=== PATIENT | male | born 1960 | race Caucasian/White ===

== ENCOUNTER 2023-09-11 12:15 | Outpatient (CLI) | payer MEDICARE, SELFPAY ==
[2023-09-11 12:53] LABS: Phencyclidine Screen,Urine Negative ng/ml (<25)
[2023-09-11 13:02] LABS: Amphetamine/Metha Screen,Urine Negative ng/ml (<1000)
[2023-09-11 13:04] LABS: Benzodiazepines Screen,Urine Negative ng/ml (<200)
[2023-09-11 13:05] LABS: Barbiturates Screen,Urine Negative ng/ml (<200); Cannabinoid Screen,Urine Negative ng/ml (<50)
[2023-09-11 13:06] LABS: Cocaine Screen,Urine Negative ng/ml (<300)
[2023-09-11 13:10] LABS: Methadone Screen,Urine Negative ng/ml (<300)
[2023-09-11 13:11] LABS: Opiate Screen,Urine Negative ng/ml (<300)
== END 2023-09-11 23:59 ==
PROVIDERS: PCP Nurse Practitioner Family; Visit Provider Nurse Practitioner Family
DX: Z79.899 Other long term (current) drug therapy (principal)
CPT/HCPCS: 80307

== ENCOUNTER 2023-12-02 14:31 | Outpatient (CLI) | payer MEDICARE, SELFPAY ==
[2023-12-02 15:18] LABS: Basophils # 0.1 K/mm3 (0-0.2); Basophils % 0.8 % (0.1-2.0); Eosinophils # 0.2 K/mm3 (0.0-0.4); Eosinophils % 2.3 % (0.1-12.0); Hematocrit 51.6 % (42.0-52.0); Hemoglobin 16.6 g/dL (14.1-18.0); Lymphocytes # 1.6 K/mm3 (0.7-4.5); Lymphocytes % 23.1 % (10-50); Mean Corpuscular HGB Conc 32.2 g/dL (31.8-35.4); Mean Corpuscular Hemoglobin 33.8 pg (27.0-31.2); Mean Corpuscular Volume 104.9 fl (80-94); Mean Platelet Volume 9.6 fl (7.4-10.4); Monocytes # 0.5 K/mm3 (0.1-1.0); Monocytes % 6.6 % (1.7-9.3); Neutrophils # 4.6 K/mm3 (1.8-7.8); Neutrophils % 67.2 % (37.0-80.0); Platelet Count 119 K/mm3 (142-424); Red Blood Count 4.92 M/mm3 (4.60-6.20); Red Cell Distribution Width 12.7 % (11.5-17.5); White Blood Count 6.8 K/mm3 (4.8-10.8)
[2023-12-02 16:05] LABS: Alanine Aminotransferase 26 U/L (12-78); Albumin/Globulin Ratio 1.5 (1.1-1.8); Alkaline Phosphatase 92 U/L (38-126); Anion Gap 9.1 mEq/L (5-15); Aspartate Amino Transferase 33 U/L (17-59); Bilirubin,Total 1.1 mg/dl (0.2-1.3); Blood Urea Nitrogen 15 mg/dl (9-20); Calcium 9.6 mg/dl (8.4-10.2); Carbon Dioxide 25 mmol/L (22.0-30.0); Chloride 110 mmol/L (98-107); Chol/HDL Ratio 2.4 (1-3.5); Cholesterol 189 mg/dl (140-200); Estimated Glomerular Filt Rate 85 ml/min (>60); GFR (African American) 102 ML/MIN (>60); Globulin 2.6 g/dL (1.3-3.2); Glucose 98 mg/dl (74-100); HDL Cholesterol 80 mg/dl (40-60); Magnesium 1.9 mg/dl (1.6-2.3); Potassium 4.1 mmoL/L (3.5-5.1); Sodium 140 mmol/L (136-145); Total Protein,Serum 6.6 g/dl (6.3-8.2); Triglycerides 107 mg/dl (30-150); VLDL Cholesterol 21 mg/dL (0-40)
[2023-12-02 16:16] LABS: Direct LDL Cholesterol 97.96 mg/dL (100-129)
[2023-12-02 16:22] LABS: 25-OH Vitamin D, Total 24.9 ng/mL (30-100)
[2023-12-02 16:36] LABS: Thyroid Stimulating Hormone 1.82 uIU/mL (0.465-4.68)
== END 2023-12-02 23:59 | disposition home or self-care (01) ==
PROVIDERS: PCP Nurse Practitioner Family; Visit Provider Nurse Practitioner Family
DX: R53.83 Other fatigue (principal); I50.9 Heart failure, unspecified; E78.5 Hyperlipidemia, unspecified; Z12.5 Encounter for screening for malignant neoplasm of prostate; E55.9 Vitamin D deficiency, unspecified
CPT/HCPCS: 36415; 80053; 80061; 82306; 83735; 84443; 85025; G0103

== ENCOUNTER 2023-12-15 15:01 | Outpatient (CLI) | payer MEDICARE, SELFPAY ==
--- NOTE | 2023-12-15 15:01 | US_ITS ---
FINAL REPORT TECHNIQUE: Ultrasound images of the testicles were obtained bilaterally. Color Doppler images were obtained. CLINICAL HISTORY: .LT TESTICULAR PAIN X 2 MONTHS FINDINGS: The testicles are normal in size and echotexture bilaterally. Arterial flow is identified bilaterally. The right epididymal head is enlarged measuring up to 18 mm with heterogeneous appearance which could be related to mass or chronic epididymitis. The left epididymis is normal. There is a large left hydrocele. No obvious hernia is seen. IMPRESSION: No evidence of testicular mass or torsion. Enlargement of the right epididymis. Recommend 3-4-month ultrasound follow-up. Large left hydrocele. Reviewed, Interpreted and Dictated by Stella Chan MD Transcribed by Magali Dudley Authenticated and [facility]
== END 2023-12-15 23:59 | disposition home or self-care (01) ==
LOC: RAD 15:01
PROVIDERS: PCP Nurse Practitioner Family; Visit Provider Nurse Practitioner Family
DX: N50.89 Other specified disorders of the male genital organs (principal)
CPT/HCPCS: 76870

== ENCOUNTER 2024-01-05 14:30 | Outpatient (CLI) | payer MEDICARE, MEDICAID, SELFPAY ==
[2024-01-05 16:13] LABS: Blood Urea Nitrogen 11 mg/dl (9-20); Estimated Glomerular Filt Rate 85 ml/min (>60); GFR (African American) 102 ML/MIN (>60)
[2024-01-07 12:59] LABS: PSA, Free 2.54 ng/mL; Prostate Specific Ag 13.8 ng/mL (0.0-4.0); Testosterone,Total 352 ng/dL (264-916)
[2024-01-12 21:14] LABS: Testosterone,Free 3.9 pg/mL (6.6-18.1)
== END 2024-01-05 23:59 | disposition home or self-care (01) ==
PROVIDERS: PCP Nurse Practitioner Family; Visit Provider Urology
DX: N40.0 Benign prostatic hyperplasia without lower urinary tract symptoms (principal); R31.9 Hematuria, unspecified
CPT/HCPCS: 36415; 82565; 84153; 84154; 84402; 84403; 84520

== ENCOUNTER 2024-01-14 07:52 | Emergency (ER) | payer MEDICARE, MEDICAID, SELFPAY ==
[2024-01-14] VITALS (12 sets, daily range): BP systolic 96–152; BP diastolic 58–90; PULSE 63–94; RESP 14–20; TEMP 36.9; O2SAT 88–97; BMI 40.1
--- NOTE | 2024-01-14 07:55 | ECG_ITS ---
APPROVED REPORT Exam: Resting ECG HR:91 bpm ECG Measurements Heart Rate 91 AXES AL 263 P 82 QRSd 102 QRS 96 QT 327 T 0 QTc 376 Conclusion SINUS RHYTHM WITH FIRST DEGREE AV BLOCK WITH OCCASIONAL VENTRICULAR PREMATURE COMPLEXES BORDERLINE RIGHT AXIS DEVIATION [QRS AXIS > 90] ANTEROSEPTAL MYOCARDIAL INFARCTION , OF INDETERMINATE AGE [40+ ms Q WAVE IN V1-V4] Electronically signed by : KATHI GUAJARDO, 01/14/2024 16:09:11
--- NOTE | 2024-01-14 08:00 | XR_ITS ---
FINAL REPORT CLINICAL HISTORY: fever, cough, SOA FINDINGS: A single view of the chest was obtained. The heart is normal in size. The mediastinum is unremarkable. The lungs are underinflated. There are patchy bibasilar airspace infiltrates probably related to acute pneumonia. There is no pleural effusion. There is no pneumothorax. There is no acute osseous abnormality. IMPRESSION: Patchy bibasilar airspace infiltrates are probably related to acute pneumonia. Reviewed, Interpreted and Dictated by Diallo Cai MD Transcribed by Kimmie Pride Authenticated and [facility]
--- NOTE | 2024-01-14 08:02 | ED_ITS ---
Discharge Plan Disposition Patient Disposition: Home, Self-Care Condition: Good Prescriptions Prescriptions: New albuterol sulfate 90 mcg/actuation HFA aerosol inhaler 2 inh inhalation Q4H PRN (Reason: shortness of breath or wheezing) Qty: 6.7 0RF xjpesbaekasxnfq-vyxdfujtd-VO [Bromfed DM] 2-30-10 mg/5 mL syrup 5 ml PO Q6H PRN (Reason: cold symptoms) Qty: 118 0RF azithromycin 500 mg tablet See Rx Instructions .ROUTE .COMPLEX Qty: 6 0RF Rx Instructions: For 250 mg dose pack: take 500 mg today (day 1), then 250 mg for 4 days (days 2-5) amoxicillin-pot clavulanate 875-125 mg tablet 1 tab PO BID Qty: 20 0RF No Action Creon 36,000-114,000- 180,000 unit capsule,delayed release(DR/EC) PO tizanidine 4 mg tablet PO Patient Comments: TAKE ONE TABLET BY MOUTH THREE TIMES DAILY NEEDED famotidine 20 mg tablet PO Patient Comments: TAKE ONE TABLET BY MOUTH TWICE DAILY FOR heartburn potassium chloride 10 mEq capsule, extended release PO Patient Comments: TAKE ONE CAPSULE BY MOUTH NEEDED with lasix oxycodone 5 mg tablet PO hydroxyzine HCl 25 mg tablet PO Patient Comments: TAKE ONE TABLET BY MOUTH THREE TIMES DAILY NEEDED FOR ANXIETY Xarelto 20 mg tablet PO Patient Comments: TAKE 1 TABLET BY MOUTH ONCE DAILY tadalafil [Cialis] 5 mg tablet 5 mg PO DAILY Qty: 30 2RF furosemide 20 mg tablet 10 mg PO DAILY Qty: 30 4RF minocycline 100 mg tablet 100 mg PO BID 10 Days Qty: 20 0RF Referrals Follow up/Referrals: Provider,Referral, MD [Referring] - See instructions Activity Restrictions/Add. Instructions Additional Instructions/Restrictions: You were evaluated in the emergency department today and diagnosed with pneumonia. Please brick picker your prescriptions at the pharmacy and take them as prescribed. Follow-up closely with your primary care provider. Return to the emergency department for new or worsening symptoms. Clinical Impressions Clinical Impression: Chest pain Pneumonia Qualifiers: Pneumonia type: due to unspecified organism Laterality: bilateral Lung location: unspecified part of lung Qualified Code(s): J18.9 - Pneumonia, unspecified organism Instructions Patient Instructions: DI for Pneumonia -- Adult Discharge ED Provider: Carol Edouard General Adult HPI General Chief complaint: Chest Pain Stated complaint: chest pain Time Seen by Provider: 01/14/24 07:53 History of Present Illness HPI narrative: This patient is a 63-year-old male with a history of tobacco use disorder, daily alcohol abuse, CHF on lasix, NADIA, BPH, DVT on xarelto, prior L BKA presenting to the emergency department for evaluation with concern for chest pain, shortness of breath, and generally feeling unwell. Patient reports that he has been sick for about 3 to 4 days with fever and generally feeling unwell. He notes that he also felt like something had been sitting on his chest. He states that this morning, he woke up with really bad chest pain and feeling he could not get his breath, so his girlfriend called 911. EMS brings in the patient and noted that he was stable en route with sinus rhythm on EKG. They noted that he was hypoxic on room air and was placed on 2 L nasal cannula. He was given aspirin and nitroglycerin prior to arrival. Patient denies any cough, congestion, abdominal pain, nausea, vomiting, changes in bowel movements, rashes, or swelling. He denies any prior history of heart attack, heart cath, or stents. Related Data Home Medications Medication Instructions Recorded Confirmed famotidine 20 mg tablet mg PO 09/11/23 01/05/24 hydroxyzine HCl 25 mg tablet mg PO 09/11/23 01/05/24 jijtzj-uqzkcxss-mdvjzam cap PO 09/11/23 01/05/24 36,000-114,000-180,000 unit capsule,delay rel (Creon) oxycodone 5 mg tablet mg PO 09/11/23 01/05/24 potassium chloride 10 mEq meq PO 09/11/23 01/05/24 capsule,extended release tizanidine 4 mg tablet mg PO 09/11/23 01/05/24 rivaroxaban 20 mg tablet (Xarelto) mg PO 12/02/23 01/05/24 Previous Rx's Medication Instructions Recorded furosemide 20 mg tablet 10 mg (1/2 x 20 mg) PO DAILY fluid 12/16/23 retention #30 tabs minocycline 100 mg tablet 100 mg PO BID 10 days #20 tabs 12/18/23 tadalafil 5 mg tablet (Cialis) 5 mg PO DAILY #30 tabs 01/05/24 albuterol sulfate 90 mcg/actuation 2 inh inhalation Q4H PRN shortness 01/14/24 aerosol inhaler of breath or wheezing #6.7 grams amoxicillin 875 mg-potassium 1 tab PO BID #20 tabs 01/14/24 clavulanate 125 mg tablet azithromycin 500 mg tablet See Rx Instructions PO .COMPLEX #6 01/14/24 tabs ktndzuktsulnueo-fhjzmsoodaflyfx-OF 5 ml PO Q6H PRN cold symptoms #118 01/14/24 2 mg-30 mg-10 mg/5 mL oral syrup mL (Bromfed DM) Allergies Allergy/AdvReac Type Severity Reaction Status Date / Time gabapentin [From Neurontin] AdvReac Mild Verified 01/05/24 13:39 [facility] Disclaimer: The information contained in this section may have been updated after the patient was seen, as this information can be updated by other users. Family History Other Cancer Diabetes Social History Smoking Status: Current every day smoker years smoked: 50 quit status: has quit before alcohol intake: current alcohol intake frequency: holidays/special occasions only substance use type: denies use current occupational status: disabled Travel in the last 8 weeks: None housing: house marital status: life partner education level: high school ROS Obtained: Yes All systems reviewed & no additional complaints except as documented Physical Exam General General appearance: alert, in no apparent distress and obese Head Head exam: atraumatic and normocephalic Eye Eye exam: Present normal appearance, PERRL and EOMI ENT ENT exam: Present normal exam, normal oropharynx, mucous membranes moist and normal external ear exam Neck Neck exam: Present normal inspection, full ROM and trachea midline; Absent tenderness Chest Chest inspection: Present normal inspection and symmetric chest wall rise; Absent tenderness Respiratory Respiratory exam: Present prolonged expiratory phase and other (Diminished breath sounds bilaterally); Absent respiratory distress, wheezes, stridor or accessory muscle use Cardiovascular Cardiovascular exam: Present regular rate and normal rhythm Abdominal Exam Abdominal exam: Present soft; Absent distention, tenderness or guarding Extremities Exam Extremities exam: Present full ROM, normal capillary refill and other (L BKA); Absent tenderness or edema Back Exam Back exam: Present normal inspection and full ROM; Absent tenderness Neurological Exam Neurological exam: Present alert, oriented X3, CN II-XII intact and normal gait; Absent motor sensory deficit Psychiatric Psychiatric exam: Present normal affect and normal mood Skin Skin exam: Present warm and dry Medical Decision Making Medical Records Medical records reviewed: Yes I reviewed the patient's medical records. Elias Inquiry Pt receiving controlled substance: No Vital Signs: 01/14/24 07:52 01/14/24 07:58 01/14/24 08:00 Temperature 98.4 F Temperature Source Oral Pulse Rate 94 H 91 H Pulse Rate [Left Radial] 94 H Respiratory Rate 20 Blood Pressure 120/58 L 104/66 L Blood Pressure [Right Arm] 120/58 L Blood Pressure Mean [Right Arm] 78 02 Sat by Pulse Oximetry 88 L 94 L 95 Oxygen Delivery Method Room Air Nasal Cannula Nasal Cannula Oxygen Flow Rate (LPM) 2 2 01/14/24 08:31 01/14/24 09:01 01/14/24 09:30 Temperature Temperature Source Pulse Rate 63 72 85 Pulse Rate [Left Radial] Respiratory Rate 17 16 19 Blood Pressure 114/89 96/76 L 152/90 H Blood Pressure [Right Arm] Blood Pressure Mean [Right Arm] 02 Sat by Pulse Oximetry 95 90 L 92 L Oxygen Delivery Method Room Air Oxygen Flow Rate (LPM) 01/14/24 10:01 01/14/24 11:00 01/14/24 11:30 Temperature Temperature Source Pulse Rate 75 67 Pulse Rate [Left Radial] Respiratory Rate 14 17 16 Blood Pressure 137/86 Blood Pressure [Right Arm] Blood Pressure Mean [Right Arm] 02 Sat by Pulse Oximetry 96 95 Oxygen Delivery Method Oxygen Flow Rate (LPM) 01/14/24 12:00 01/14/24 12:31 Temperature Temperature Source Pulse Rate 75 Pulse Rate [Left Radial] Respiratory Rate 15 17 Blood Pressure 145/85 H Blood Pressure [Right Arm] Blood Pressure Mean [Right Arm] 02 Sat by Pulse Oximetry 97 Oxygen Delivery Method Oxygen Flow Rate (LPM) Lab Data Lab results reviewed: Yes I reviewed the patient's lab results. Lab Results 01/14/24 07:58: WBC 7.5, RBC 4.97, Hgb 16.8, Hct 52.3 H, MCV 105.4 H, MCH 33.8 H , MCHC 32.0, RDW 13.4, Plt Count 158, MPV 10.6 H, Neut % (Auto) 70.0, Lymph % (Auto) 19.0, [place] % (Auto) 6.9, Eos % (Auto) 3.4, Baso % (Auto) 0.9, Neut # (Auto) 5.2, Lymph # (Auto) 1.4, [place] # (Auto) 0.5, Eos # (Auto) 0.3, Baso # (Auto) 0.1, PT 11.4, INR 1.06, APTT 27.3, D-Dimer 0.49, Sodium 143, Potassium 4.1, Chloride 104, Carbon Dioxide 31 H, Anion Gap 12.1, BUN 8 L, Creatinine 0.80, Estimated Creat Clear 132, Estimated GFR 97, Est GFR ( Amer) 117, Glucose 93, Calcium 8.8, Total Bilirubin 0.7, AST 45, ALT 22, Alkaline Phosphatase 73, Troponin I < 0.01, C-Reactive Protein 27.4 H, NT-Pro-B Natriuret Pep 218 H, Total Protein 7.4, Albumin 4.0, Globulin 3.4 H, Albumin/Globulin Ratio 1.2, Lipase 53, TSH 2.05, Thyroxine (T4) 7.5, Plasma/Serum Alcohol < 10 01/14/24 08:11: VBG pH 7.31, VBG pCO2 55.2 H, VBG pO2 32.1, VBG HCO3 27.0, VBG Total CO2 28.7 H, VBG O2 Saturation 58.1, VBG Base Excess 0.7, VBG Lactic Acid 2.2 H 01/14/24 08:12: SARS-CoV-2 (PCR) Not detected, Influenza A Untype (PCR) Not detected, Influenza Type B (PCR) Not detected 01/14/24 09:37: Urine Color Dark yellow, Urine Appearance Slightly cloudy, Urine pH 6.0, Ur Specific [place] 1.025, Urine Protein Negative, Urine Glucose (UA) Negative, Urine Ketones Negative, Urine Blood Negative, Urine Nitrate Negative, Urine Bilirubin Negative, Urine Urobilinogen 1.0, Ur Leukocyte Esterase Negative, Urine RBC Occasional, Urine WBC Occasional, Ur Squamous Epith Cells Occasional, Urine Bacteria Trace, Urine Mucus Trace 01/14/24 10:41: Troponin I < 0.01 01/14/24 12:28: Lactate 1.1 01/14/24 07:58 01/14/24 07:58 Orders (Tests/Meds): ED MEDICATIONS Discontinued Medications Generic Name Dose Route Start Last Admin Trade Name Pj PRN Reason Stop Dose Admin Albuterol/Ipratropium 3 ml 01/14/24 08:01 01/14/24 08:06 Ipratropium/Albuterol 3 Ml Neb IH 01/14/24 08:02 3 ml ONCE ONE Administration Ceftriaxone Sodium 2 gm/ 100 mls @ 200 mls/hr 01/14/24 08:56 01/14/24 09:13 Sodium Chloride IV 01/14/24 09:25 200 mls/hr ONCE ONE Administration Azithromycin 500 mg/ Sodium 250 mls @ 250 mls/hr 01/14/24 08:56 01/14/24 09:33 Chloride IV 01/14/24 08:57 250 mls/hr ONCE ONE Administration Methylprednisolone Sodium Succinate 125 mg 01/14/24 08:55 01/14/24 09:13 Methylprednisolone Sod Succ 125mg Vial IV 01/14/24 08:56 125 mg ONCE ONE Administration ORDERS Category Date Time Status CT cervical spine wo con Stat Cat Scan 01/14/24 12:[address] head/brain wo con Stat Cat Scan 01/14/24 12:[address] lumbar spine wo con Stat Cat Scan 01/14/24 12:[address] thoracic spine wo con Stat Cat Scan 01/14/24 12:16 Completed XR chest portable Stat Exams 01/14/24 08:00 Completed XR pelvis 1-2V Stat Exams 01/14/24 12:16 Completed Activated Partial Thrombo Time Stat Lab 01/14/24 07:58 Completed C-Reactive Protein Stat Lab 01/14/24 07:58 Completed Complete Blood Count Auto Diff Stat Lab 01/14/24 07:58 Completed Comprehensive Metabolic Panel Stat Lab 01/14/24 07:58 Completed D-Dimer Stat Lab 01/14/24 07:58 Completed Ethyl Alcohol Stat Lab 01/14/24 07:58 Completed Lactic Acid Follow Up (RFLX 1) Stat Lab 01/14/24 12:28 Completed Lipase Stat Lab 01/14/24 07:58 Completed NT Pro Brain Natriuretic Pep. Stat Lab 01/14/24 07:58 Completed Prothrombin Time INR Stat Lab 01/14/24 07:58 Completed Rapid PCR Covid and Flu A/B Stat Lab 01/14/24 08:12 Completed T4 (Thyroxine) Stat Lab 01/14/24 07:58 Completed Thyroid Stimulating Hormone Stat Lab 01/14/24 07:58 Completed Troponin I Q3H Lab 01/14/24 10:41 Completed Troponin I Stat Lab 01/14/24 07:58 Completed UA [Urinalysis and Microscopic] Stat Lab 01/14/24 09:37 Completed Venous Blood Gas Stat RT 01/14/24 08:11 Completed ECG Data Tracing #1: I reviewed this ECG and interpreted as documented below: Normal sinus rhythm with first-degree AV block with a ventricular rate of 91 bpm. DC interval of 263 ms. PVC noted. No acute ST changes concerning for ischemia. ECG initial impression date: 01/14/24 ECG initial impression time: 07:56 Medical Decision Narrative: In summary, this patient is a 63-year-old male presenting to the Emergency Department for evaluation of chest pressure, shortness of breath, and generally feeling unwell for 3 to 4 days. Differential diagnoses considered include but are not limited to ACS, dysrhythmia, unstable angina, pneumonia, pleurisy, COPD exacerbation, respiratory failure, PE, CHF exacerbation. Ruling out the most morbid conditions drove assessment. It should be noted patient's history includes CHF, daily alcohol abuse, and tobacco dependence which are not at goal therapy. This complicates all aspects of care by increasing patient's risk for morbidity. I reviewed patient's past medical records and noted previous evaluation by PCP for NADIA type symptoms, prior sleep study is pending according to medical records. Also noted previous urology evaluation. On exam, patient is alert and oriented, sitting upright on stretcher in no acute distress. GCS of 15. He was 88% on room air, so he was placed on 2 L nasal cannula. Diminished breath sounds bilaterally with prolonged expiratory phase. Workup included CBC, CMP, TSH, T4, lipase, ethyl alcohol level, CRP, PT, PTT, troponin, BNP, D-dimer, urinalysis, chest x-ray, viral swab, VBG, and EKG. He was given a neb for symptomatic improvement. EKG obtained does not demonstrate any acute STEMI. No prior ECG for comparison. I independently interpreted x- ray prior to the radiologist read and noted concerns for bilateral pneumonia. Please see their read for final interpretation. Labs were obtained that demonstrated mildly elevated lactic acid. Patient has compensated respiratory acidosis. I feel lactic acid is likely secondary to hypoxia [employer]. No sepsis bolus administered given history of CHF and acute respiratory failure. Patient does not have any significant leukocytosis, tachypnea, fever, or other SIRS criteria that would indicate sepsis. On reassessment, patient had good improvement after administration of nebulizer treatment. Given this, he was given IV methylprednisolone. Given pneumonia, he was given IV Rocephin and azithromycin. He was taken off supplemental oxygen and maintaining O2 saturation greater than 93% while awake. He wears 2 L nasal cannula asleep chronically. He was placed on 2 L because he plans to sleep here in the ED. At 0915, patient was placed in ED observation status pending second troponin and monitoring of his oxygen status to determine whether or not the patient would be appropriate for discharge versus admission for treatment of pneumonia and chest pain. The patient was provided serial reevaluations and cardiac monitoring while awaiting ultimate disposition. On multiple subsequent reassessments, the patient is resting comfortably with no desaturations noted on room air while awake and on his 2 L nasal cannula while sleeping. Second troponin came back and was negative. I went to have a discussion with the patient and family regarding potential for discharge home for treatment for community-acquired pneumonia as an outpatient. This was at 1215pm after 3 hours of ED observation. At that time, family noted that they forgot to tell me that the patient had a multiple falls over the last couple months, including over the last week. He has had new back pain as a result of this with no numbness, tingling, saddle anesthesia, or other concerns. Family states that he has hardware in his spine and they are concerned that it could be loose. Given this, after shared decision make with the family, they want to stay to obtain CT scan of the spines. CT scan of the head without contrast as well as pelvic x-ray were also ordered. I dependently interpreted CT scan prior to radiology read and noted no acute fracture or intracranial hemorrhage. Given reassuring workup and exam, at 1430 p.m. the patient was deemed to be appropriate for discharge after approximately 4 hours and 15 minutes in ED observation. Patient was discharged with prescriptions for Augmentin, azithromycin, albuterol inhaler, and prednisone. Strict return precautions were given as well as instructions for close follow-up outpatient. Critical Care Critical Care Time Critical Care Time: No
--- NOTE | 2024-01-14 08:05 | PC.NURSE ---
Rad at bedside for XRay at this time.
[2024-01-14] MEDS: IPRATROPIUM/ALBUTEROL 3 ML NEB IH (08:06)
[2024-01-14 08:08] LABS: Basophils # 0.1 K/mm3 (0-0.2); Basophils % 0.9 % (0.1-2.0); Eosinophils # 0.3 K/mm3 (0.0-0.4); Eosinophils % 3.4 % (0.1-12.0); Hematocrit 52.3 % (42.0-52.0); Hemoglobin 16.8 g/dL (14.1-18.0); Lymphocytes # 1.4 K/mm3 (0.7-4.5); Mean Corpuscular Hemoglobin 33.8 pg (27.0-31.2); Mean Corpuscular Volume 105.4 fl (80-94); Mean Platelet Volume 10.6 fl (7.4-10.4); Monocytes # 0.5 K/mm3 (0.1-1.0); Monocytes % 6.9 % (1.7-9.3); Neutrophils # 5.2 K/mm3 (1.8-7.8); Platelet Count 158 K/mm3 (142-424); Red Blood Count 4.97 M/mm3 (4.60-6.20); Red Cell Distribution Width 13.4 % (11.5-17.5); White Blood Count 7.5 K/mm3 (4.8-10.8)
[2024-01-14 08:16] LABS: VBG Base Excess 0.7 mmol/L (-2.4-2.3); VBG Oxygen Saturation 58.1 % (50-70); VBG PCO2 55.2 mmol/L (35-51); VBG PH 7.31 mmol/L (7.31-7.41); VBG PO2 32.1 mmol/L (28-40); VBG Total CO2 28.7 mmol/L (23-27)
[2024-01-14 08:18] LABS: Lactate Venous 2.2 mmol/L (0.4-2.0)
[2024-01-14 08:19] LABS: Coronavirus 19, PCR Not Detected (NotDetected); Influenza A, PCR Not Detected (NotDetected); Influenza B, PCR Not Detected (NotDetected)
[2024-01-14 08:23] LABS: Alanine Aminotransferase 22 U/L (12-78); Albumin/Globulin Ratio 1.2 (1.1-1.8); Alkaline Phosphatase 73 U/L (38-126); Anion Gap 12.1 mEq/L (5-15); Aspartate Amino Transferase 45 U/L (17-59); Bilirubin,Total 0.7 mg/dl (0.2-1.3); Blood Urea Nitrogen 8 mg/dl (9-20); Calcium 8.8 mg/dl (8.4-10.2); Carbon Dioxide 31 mmol/L (22.0-30.0); Chloride 104 mmol/L (98-107); Creatinine Clearance Estimated 132 mL/min (50-200); Estimated Glomerular Filt Rate 97 ml/min (>60); GFR (African American) 117 ML/MIN (>60); Globulin 3.4 g/dL (1.3-3.2); Glucose 93 mg/dl (74-100); Lipase 53 U/L (23-300); Potassium 4.1 mmoL/L (3.5-5.1); Sodium 143 mmol/L (136-145); Total Protein,Serum 7.4 g/dl (6.3-8.2)
[2024-01-14 08:26] LABS: Activated Partial Thrombo Time 27.3 seconds (22.8-30.6); INR 1.06 (0.9-1.1); Prothrombin Time 11.4 seconds (10.1-12.5)
[2024-01-14 08:27] LABS: Ethyl Alcohol < 10 mg/dl (0-10)
[2024-01-14 08:29] LABS: C-Reactive Protein 27.4 mg/L (0-4)
--- NOTE | 2024-01-14 08:36 | PC.NURSE ---
Rounded on pt. No needs at this time.
[2024-01-14 08:37] LABS: NT Pro Brain Natriuretic Pep. 218 pg/mL (0-125)
[2024-01-14 08:43] LABS: Troponin I < 0.01 ng/ml (0.00-0.034)
[2024-01-14 08:44] LABS: T4 (Thyroxine) 7.5 ug/dl (5.53-11.0)
[2024-01-14 08:54] LABS: D-Dimer 0.49 ug/mL (0.0-0.5)
[2024-01-14 08:57] LABS: Thyroid Stimulating Hormone 2.05 uIU/mL (0.465-4.68)
[2024-01-14] MEDS: CEFTRIAXONE SODIUM 2 GM in 0.9 % SODIUM CHLORIDE 100 ML IV (09:13)
[2024-01-14] MEDS: METHYLPREDNISOLONE SOD SUCC 125MG VIAL 125 MG IV (09:13)
[2024-01-14] MEDS: AZITHROMYCIN 500 MG in 0.9 % SODIUM CHLORIDE 250 ML 250 MG IV (09:33)
[2024-01-14 09:44] LABS: Microscopic, Urine URINE MICROSCOPIC (MICROSCOPIC)
[2024-01-14 09:52] LABS: Bilirubin,Urine Negative (Negative); Blood, Urine Negative (Negative); Glucose,Urine (UA) Negative (Negative); Ketones,Urine Negative (Negative); Leukocyte Esterase,Urine Negative (Negative); Nitrate,Urine Negative (Negative); Protein,Urine Negative (Negative); Specific Gravity, Urine 1.025 (1.005-1.030)
[2024-01-14 10:30] LABS: Bacteria,Urine Trace /lpf; Mucus,Urine Trace /lpf; RBC,Urine Occasional #/hpf (0-3); Squamous Epithelial Cell,Urine Occasional #/hpf (0-5); WBC,Urine Occasional #/hpf (0-3)
[2024-01-14 10:31] LABS: Color,Urine Dark Yellow (Yellow)
[2024-01-14 10:32] LABS: Appearance,Urine Slightly Cloudy (Clear)
[2024-01-14 11:14] LABS: Troponin I < 0.01 ng/ml (0.00-0.034)
--- NOTE | 2024-01-14 12:16 | CT_ITS ---
FINAL REPORT TECHNIQUE: Axial images were obtained of the cervical spine by computed tomography. Coronal and sagittal reconstruction process performed. This study was performed with techniques to keep radiation doses as low as reasonably achievable (ALARA). Individualized dose reduction techniques using automated exposure control or adjustment of mA and/or kV according to the patient''s size were employed. CLINICAL HISTORY: frequent falls FINDINGS: There is no acute fracture. Cervical vertebrae show normal height. There is advanced disc space narrowing at C3-4, C4-5, C5-6, C6-7, and C7-T1. There is no malalignment. There is reversal of the normal cervical lordosis. Posterior osteophytes are present at C3-4, C4-5, C5-6, and C6-7 with significant neuroforaminal narrowing at C3-4 and C4-5. IMPRESSION: Degenerative changes with no acute fracture. Reviewed, Interpreted and Dictated by Diallo Cai MD Transcribed by Kimmie Pride Authenticated and [facility]
--- NOTE | 2024-01-14 12:16 | XR_ITS ---
FINAL REPORT CLINICAL HISTORY: frequent falls FINDINGS: PELVIS 1 view was obtained. Fusion hardware is seen in the lower lumbar spine. There is no acute fracture or dislocation. There is moderate hip joint space narrowing bilaterally. The femoral heads have a normal, smooth contour. There is no soft tissue abnormality. IMPRESSION: No acute bony abnormality. Reviewed, Interpreted and Dictated by Diallo Cai MD Transcribed by Kimmie Pride Authenticated and [facility]
--- NOTE | 2024-01-14 12:16 | CT_ITS ---
FINAL REPORT TECHNIQUE: Axial CT images were performed through the head. Coronal reformatted images were submitted. This study was performed with techniques to keep radiation doses as low as reasonably achievable (ALARA). Individualized dose reduction techniques using automated exposure control or adjustment of mA and/or kV according to the patient's size were employed. CLINICAL HISTORY: frequent falls FINDINGS: The ventricles are normal in size. There is no evidence of hemorrhage. There is no mass or edema identified. 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 There is also encephalomalacia in the inferior, medial, left cerebellum hemisphere also consistent with sequela of prior infarct. There is no abnormal extra-axial fluid seen. There is mild mucoperiosteal thickening in the right maxillary sinus. No air-fluid levels are identified. IMPRESSION: Chronic changes with no acute intracranial process. Reviewed, Interpreted and Dictated by Diallo Cai MD Transcribed by Kimmie Pride Authenticated and [facility]
--- NOTE | 2024-01-14 12:16 | CT_ITS ---
FINAL REPORT TECHNIQUE: Axial images were obtained of the lumbar spine by computed tomography. Coronal and sagittal reconstruction process performed. This study was performed with techniques to keep radiation doses as low as reasonably achievable (ALARA). Individualized dose reduction techniques using automated exposure control or adjustment of mA and/or kV according to the patient''s size were employed. CLINICAL HISTORY: frequent falls FINDINGS: There is no acute fracture. There has been posterior fusion of L3-4 and L4-5. Interbody fusion hardware is present. There is minimal spondylolisthesis of L3 on L4. Moderate disc space narrowing is seen at L1-2, L2-3, and L5-S1. Significant bilateral neuroforaminal narrowing is seen at L2-3 and L3-4, greatest on the right. There is no malalignment. IMPRESSION: Postoperative and degenerative changes with no acute bony abnormality. Reviewed, Interpreted and Dictated by Diallo Cai MD Transcribed by Kimmie Pride Authenticated and [facility]
--- NOTE | 2024-01-14 12:16 | CT_ITS ---
FINAL REPORT TECHNIQUE: Axial images were obtained of the thoracic spine by computed tomography. Coronal and sagittal reconstruction process performed. This study was performed with techniques to keep radiation doses as low as reasonably achievable (ALARA). Individualized dose reduction techniques using automated exposure control or adjustment of mA and/or kV according to the patient's size were employed. CLINICAL HISTORY: frequent falls FINDINGS: There is no acute fracture. Thoracic vertebrae show normal height. There is moderate anterior osteophyte formation in the mid and lower thoracic spine. An ossific density at the anterior aspect of T9-T10 level measures 10 mm and appears chronic and likely degenerative. There is no malalignment. The facets are properly aligned. IMPRESSION: Degenerative changes with no acute bony abnormality. Reviewed, Interpreted and Dictated by Diallo Cai MD Transcribed by Kimmie Pride Authenticated and [facility]
[2024-01-14 12:18] LABS: Reflex Lactic Add Lactic Reflex
[2024-01-14 12:48] LABS: Lactic Acid Follow Up (RFLX 1) 1.1 mmol/L (0.7-2.1)
== END 2024-01-14 15:07 | disposition home or self-care (01) ==
PROVIDERS: Emergency Provider Emergency Medicine; PCP Nurse Practitioner Family
DX: R07.9 Chest pain, unspecified (principal); J18.9 Pneumonia, unspecified organism; I44.0 Atrioventricular block, first degree; I49.3 Ventricular premature depolarization; R06.02 Shortness of breath; F10.10 Alcohol abuse, uncomplicated; F17.210 Nicotine dependence, cigarettes, uncomplicated
CPT/HCPCS: 70450; 71045; 72125; 72128; 72131; 72170; 80053; 81001; 82803; 83605; 83690; 83880; 84436; 84443; 84484; 85025; 85378; 85610; 85730; 86140; 87636; 93005; 96365; 96375; 99285; J0456; J0696

== ENCOUNTER 2024-02-05 13:04 | Outpatient (CLI) | payer MEDICARE, OTHER, SELFPAY ==
--- NOTE | 2024-02-05 13:04 | CT_ITS ---
FINAL REPORT TECHNIQUE: Axial CT of the abdomen and pelvis, without and with IV contrast. Oral contrast was given. This study was performed with techniques to keep radiation doses as low as reasonably achievable (ALARA). Individualized dose reduction techniques using automated exposure control or adjustment of mA and/or kV according to the patient's size were employed. CLINICAL HISTORY: hematuria FINDINGS: Abdomen: Lung bases are clear. There is fatty infiltration of the liver. The spleen, pancreas and adrenal glands are unremarkable. The patient is status post cholecystectomy. There are small bilateral nonobstructing renal stones. There is mild bilateral renal scarring. No bowel obstruction or fluid collection is seen. Pelvis: The appendix is normal. The prostate is enlarged. Pelvic bowel loops are unremarkable. No fluid collection or adenopathy is seen. IMPRESSION: Bilateral nonobstructing renal stones. Reviewed, Interpreted and Dictated by Stella Chan MD Transcribed by Lisa Ramírez Authenticated and [facility]
== END 2024-02-05 23:59 | disposition home or self-care (01) ==
LOC: RAD 13:04
PROVIDERS: PCP Nurse Practitioner Family; Visit Provider Urology
DX: N40.0 Benign prostatic hyperplasia without lower urinary tract symptoms (principal); R31.9 Hematuria, unspecified
CPT/HCPCS: 74178; Q9967

== ENCOUNTER 2024-02-06 06:19 | Day surgery (SDC) | payer MEDICARE, OTHER, SELFPAY ==
[2024-02-04 12:16] VITALS: BMI 40.1
--- NOTE | 2024-02-04 12:17 | SUR.PREOP ---
TC to JENISE at Dr. Oliver office to verify if pt can remain on blood thinners prior to cystoscopy procedure.
[2024-02-06 07:19] VITALS: BP 136/74; PULSE 74; RESP 16; TEMP 36.6; O2SAT 91
[2024-02-06] MEDS: LIDOCAINE 2% UROJET 10ML 10 ML (08:34)
[2024-02-06] MEDS: LACTATED RINGERS 1000ML 1,000 ML 50 ML IV (08:34)
--- NOTE | 2024-02-06 08:40 | HMH.PROCNOTE ---
[facility] Procedure Note Date: 02/06/24 Time: 08:40 Procedure Note:: Preop diagnosis hematuria postop diagnosis hematuria/obstructive BPH/posterior urethritis Operative note: The patient was brought to the cystoscopy outpatient room. He is prepped in the standard fashion. He underwent urethral anesthesia with Xylocaine jelly. He then underwent flexible cystoscopy. The anterior urethra is unremarkable. From the level of the verumontanum the patient has grade 2-3 prostate obstruction. His prostatic urethra is also inflammatory. The bladder itself is +2 trabeculated throughout. The ureteral orifice ease are normal bilaterally with clear E flux of urine. There is no evidence of bladder stone tumor hemorrhage or infection. The bladder capacity is good at some 300 cc. The patient tolerated the procedure well.
[2024-02-06 08:55] VITALS: BP 140/85; PULSE 74; RESP 18; O2SAT 97
== END 2024-02-06 08:57 | disposition home or self-care (01) ==
PROVIDERS: PCP Nurse Practitioner Family; Visit Provider Urology
PROC: 0TJB8ZZ Inspection of Bladder, Via Natural or Artificial Opening Endoscopic (ICD-10-PCS; CPT 52000; principal; 2024-02-06 08:45)
DX: N40.0 Benign prostatic hyperplasia without lower urinary tract symptoms (principal); R31.9 Hematuria, unspecified; N34.2 Other urethritis
CPT/HCPCS: 52000; J7120

== ENCOUNTER 2024-04-13 16:40 | Outpatient (CLI) | payer MEDICARE, OTHER, SELFPAY ==
--- NOTE | 2024-04-13 16:46 | XR_ITS ---
FINAL REPORT CLINICAL HISTORY: L Hip Pain COMPARISON: None FINDINGS: LEFT HIP: Two views of the left hip with an AP view of the pelvis. Demonstrate no acute fracture or dislocation. There is moderate narrowing of the left hip joint space. Small osteophytes are noted along the lateral acetabular margin. No soft tissue abnormality is seen. Posterior fusion hardware is seen bridging the lower lumbar spine. IMPRESSION: No acute bony abnormality. Reviewed, Interpreted and Dictated by Diallo Cai MD Transcribed by Leta Ellis Authenticated and [facility]
== END 2024-04-13 23:59 | disposition home or self-care (01) ==
LOC: RAD 16:42
PROVIDERS: PCP Nurse Practitioner Family; Visit Provider Nurse Practitioner Family
DX: M25.552 Pain in left hip (principal)
CPT/HCPCS: 73502

== ENCOUNTER → 2024-05-31 06:31 | Outpatient (CLI) | payer MEDICARE, OTHER, SELFPAY | LOC: SL 06:32 | PROVIDERS: PCP Nurse Practitioner Family; Visit Provider Nurse Practitioner Family | DX: G47.33 Obstructive sleep apnea (adult) (pediatric) (principal); R06.83 Snoring; R40.0 Somnolence | CPT/HCPCS: G0399 ==

== ENCOUNTER 2024-11-09 12:13 | Emergency (ER) | payer MEDICARE, MEDICAID, SELFPAY ==
[2024-11-09] VITALS (14 sets, daily range): BP systolic 107–134; BP diastolic 55–91; PULSE 70–97; RESP 11–20; TEMP 36.6–36.7; O2SAT 83–98; BMI 39.4
--- NOTE | 2024-11-09 12:30 | ED_ITS ---
Discharge Plan Disposition Patient Disposition: Home, Self-Care Condition: Fair Prescriptions Prescriptions: New guaifenesin [Mucinex] 600 mg tablet extended release 12hr 600 mg PO BID PRN (Reason: cough) Qty: 14 0RF guaifenesin [Mucinex] 600 mg tablet extended release 12hr 600 mg PO BID PRN (Reason: cough) Qty: 14 0RF No Action Creon 36,000-114,000- 180,000 unit capsule,delayed release(DR/EC) 1 cap PO DIRECTED tizanidine 4 mg tablet 4 mg PO DAILY Patient Comments: TAKE ONE TABLET BY MOUTH THREE TIMES DAILY NEEDED potassium chloride 10 mEq capsule, extended release 10 meq PO DAILY Patient Comments: TAKE ONE CAPSULE BY MOUTH NEEDED with lasix oxycodone 5 mg tablet 5 mg PO NEEDED PRN (Reason: Pain) escitalopram oxalate [Lexapro] 10 mg tablet 10 mg PO DAILY Qty: 30 2RF diclofenac sodium [Voltaren Arthritis Pain] 1 % gel 2 g topical QID Qty: 100 2RF Rx Instructions: apply to single elbow, wrist or hand; for hand includes palm/fingers/back of hand pantoprazole 20 mg tablet,delayed release (DR/EC) 20 mg PO DAILY Qty: 90 2RF Xarelto 20 mg tablet 10 mg PO DAILY Qty: 30 1RF furosemide 20 mg tablet See Rx Instructions .ROUTE .COMPLEX Qty: 90 0RF Dose Instruction: TAKE 1/2 TABLET BY MOUTH ONCE A DAY FOR FLUID RETENTION Rx Instructions: TAKE 1/2 TABLET BY MOUTH ONCE A DAY FOR FLUID RETENTION tamsulosin [Flomax] 0.4 mg capsule 0.4 mg PO DAILY Qty: 30 3RF tadalafil [Cialis] 5 mg tablet 5 mg PO DAILY Qty: 30 2RF albuterol sulfate 90 mcg/actuation HFA aerosol inhaler 2 inh inhalation Q4H PRN (Reason: shortness of breath or wheezing) Qty: 6.7 0RF xdpjyiiocggphyi-ydxnjbddp-NM [Bromfed DM] 2-30-10 mg/5 mL syrup 5 ml PO Q6H PRN (Reason: cold symptoms) Qty: 118 0RF Referrals Follow up/Referrals: Provider,Referral, MD [Referring] - See instructions Activity Restrictions/Add. Instructions Additional Instructions/Restrictions: Please return to the emergency department any worsening signs or symptoms, any difficulty breathing, any worsening pain, please follow-up with your family doctor. Please take all medication as prescribed. Utilize at home oxygen as needed. Clinical Impressions Clinical Impression: Fall, Acute costochondritis Instructions Patient Instructions: Costochondritis, How to Prevent Falls Print Language Print Language: Armenian Discharge ED Provider: Timothy Hanley General Adult HPI <ESTEPHANIA Zelaya - Last Filed: 11/09/24 19:08> General Chief complaint: Fall Stated complaint: rt side pain/fall Time Seen by Provider: 11/09/24 12:23 Mode of Arrival: EMS Source of Information: Patient Description of Symptoms (Recalled from ER Triage Doc. by RN): Reports falling in his garage last night injuring his right rib cage. Also states that he did hit his head. No LOC. No blood thinners. Complaint of right rib pain. History of Present Illness HPI narrative: 64-year-old male presents to the emergency department via EMS for a fall, patient states he fell over 2 AM last night, injuring his right side, complains of right-sided rib pain, did hit his head but no LOC, he is not on anticoagulant therapy, patient is a left BKA patient, he denies any presyncopal or syncopal type episode but he is unsure, he does not remember much about the event. Denies any fever chills, denies any overt chest pain, does admit to some abdominal pain, nausea, no vomiting, no urinary type symptomatology, patient does not know how long he was down for , but he states he was able to get up on his own. Patient has other past medical history consistent with IBS, BPH, anxiety/depression, NADIA utilizes submental oxygen therapy at home as needed, CHF, current everyday smoker, previous history of alcohol use/abuse, patient has any back pain, neck pain, thoracic spine pain, denies any radicular symptoms, denies urinary bladder or bowel dysfunction. Initial triage vitals are notable for SpO2 92%, thus placement placed on 2 L submental nasal cannula. Patient did receive 100 mcg of IV fentanyl en route per EMS. Onset (ago): hour(s) Related Data Home Medications ?Medication ?Instructions ?Recorded ?Confirmed qdnufy-lhwebycr-tcwvunh 1 cap PO DIRECTED 09/11/23 10/26/24 36,000-114,000-180,000 unit capsule,delay rel (Creon) oxycodone 5 mg tablet 5 mg PO NEEDED PRN Pain 09/11/23 10/26/24 potassium chloride 10 mEq 10 meq PO DAILY 09/11/23 10/26/24 capsule,extended release tizanidine 4 mg tablet 4 mg PO DAILY 09/11/23 10/26/24 Previous Rx's ?Medication ?Instructions ?Recorded albuterol sulfate 90 mcg/actuation 2 inh inhalation Q4H PRN shortness 01/14/24 aerosol inhaler of breath or wheezing #6.7 grams twfidbpryycitbr-mzraqzoghbawuie-CZ 5 ml PO Q6H PRN cold symptoms #118 01/14/24 2 mg-30 mg-10 mg/5 mL oral syrup mL (Bromfed DM) escitalopram oxalate 10 mg tablet 10 mg PO DAILY #30 tabs 04/13/24 (Lexapro) rivaroxaban 20 mg tablet (Xarelto) 10 mg (1/2 x 20 mg) PO DAILY DVT 05/19/24 #30 tabs furosemide 20 mg tablet See Rx Instructions .Route 07/02/24 .COMPLEX #90 tabs diclofenac sodium 1 % topical gel 2 g topical QID #100 grams 07/07/24 (Voltaren Arthritis Pain) tadalafil 5 mg tablet (Cialis) 5 mg PO DAILY #30 tabs 10/15/24 tamsulosin 0.4 mg capsule (Flomax) 0.4 mg PO DAILY #30 caps 10/15/24 pantoprazole 20 mg tablet,delayed 20 mg PO DAILY #90 tabs 10/26/24 release guaifenesin 600 mg tablet, 600 mg PO BID PRN cough #14 tabs 11/09/24 extended release 12 hr (Mucinex) guaifenesin 600 mg tablet, 600 mg PO BID PRN cough #14 tabs 11/09/24 extended release 12 hr (Mucinex) Allergies Allergy/AdvReac Type Severity Reaction Status Date / Time gabapentin (From Neurontin) AdvReac Mild Verified 10/26/24 14:49 PFS <ESTEPHANIA Zelaya - Last Filed: 11/09/24 19:08> PFS Disclaimer: The information contained in this section may have been updated after the patient was seen, as this information can be updated by other users. 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: No Exposure to someone with infectious disease in past 14 days?: No Do you have a fever (greater than 100.4 F or 38 C)?: No Have you tested positive for COVID-19: No Exposed to someone with COVID-19 in past 14 days?: No Do you have a sore throat?: No Do you have a cough?: No Do you have any weakness?: No Do you have any diarrhea?: No Are you experiencing any unusual bleeding?: No Do you have any muscle aches/pain?: No Do you have any abdominal pain?: No Are you experiencing loss of taste or smell?: No Other Medical History Have you received the Pneumonia Vaccine: Yes <ESTEPHANIA Zelaya - Last Filed: 11/09/24 19:08> ROS Obtained: Yes All systems reviewed & no additional complaints except as documented Physical Exam <ESTEPHANIA Zelaya - Last Filed: 11/09/24 19:08> General General appearance: alert and in no apparent distress Comment: In obvious pain Head Head exam: atraumatic and normocephalic Eye Eye exam: Present PERRL and EOMI ENT ENT exam: Present mucous membranes moist Neck Neck exam: Present normal inspection Chest Chest inspection: Present normal inspection and symmetric chest wall rise Respiratory Respiratory exam: Present normal lung sounds bilaterally and other (There is chest wall tenderness to palpation to the right side); Absent respiratory distress, wheezes or stridor Cardiovascular Cardiovascular exam: Present regular rate and normal rhythm Abdominal Exam Abdominal exam: Present soft and tenderness Abdominal tenderness: Present diffuse Comment: Mild diffuse abdominal pain to palpation Extremities Exam Extremities exam: Present normal inspection and other (BKA present on the left lower extremity, no pain to palpation to the bilateral hips) Back Exam Back exam: Present full ROM; Absent tenderness, paraspinal tenderness or vertebral tenderness Comment: No paraspinal tenderness to the cervical, thoracic, lumbar spine, no spinal tenderness palpation of the cervical, thoracic or lumbar spine Neurological Exam Neurological exam: Present alert and oriented X3 Psychiatric Psychiatric exam: Present normal affect Skin Skin exam: Present warm and dry Medical Decision Making <ESTEPHANIA Zelaya - Last Filed: 11/09/24 19:08> Medical Records Medical records reviewed: Yes I reviewed the patient's medical records. Screening: Per USPSTF and CDC recommendations, given the prevalence of disease in our region, it is our hospital?s policy to screen for HIV and viral Hepatitis for all patients aged 18 and over and those with ongoing risk factors. Elias Inquiry Pt receiving controlled substance: No Elias was queried for this patient: No Vital Signs: 11/09/24 12:14 11/09/24 12:52 11/09/24 13:00 Temperature 97.9 F Temperature Source Oral Pulse Rate 86 82 Pulse Rate [Radial] 96 H Respiratory Rate 18 Blood Pressure 107/84 L 120/78 Blood Pressure [Right Arm] 124/65 Blood Pressure Mean [Right Arm] 84 Blood Pressure Source [Right Arm] Automatic Cuff Blood Pressure Position [Right Arm] Sitting 02 Sat by Pulse Oximetry 91 L 93 L 93 L Oxygen Delivery Method Nasal Cannula Oxygen Flow Rate (LPM) 2 11/09/24 13:30 11/09/24 14:31 11/09/24 15:00 Temperature Temperature Source Pulse Rate 87 94 H 97 H Pulse Rate [Radial] Respiratory Rate 18 12 13 Blood Pressure 134/91 H 113/70 118/88 Blood Pressure [Right Arm] Blood Pressure Mean [Right Arm] Blood Pressure Source [Right Arm] Blood Pressure Position [Right Arm] 02 Sat by Pulse Oximetry 83 L 94 L 91 L Oxygen Delivery Method Room Air Oxygen Flow Rate (LPM) 11/09/24 15:30 11/09/24 16:00 11/09/24 16:31 Temperature Temperature Source Pulse Rate 89 86 87 Pulse Rate [Radial] Respiratory Rate 14 11 L 12 Blood Pressure 116/73 120/78 111/65 Blood Pressure [Right Arm] Blood Pressure Mean [Right Arm] Blood Pressure Source [Right Arm] Blood Pressure Position [Right Arm] 02 Sat by Pulse Oximetry 93 L 92 L 94 L Oxygen Delivery Method Room Air Room Air Room Air Oxygen Flow Rate (LPM) 11/09/24 17:00 11/09/24 17:30 11/09/24 18:01 Temperature Temperature Source Pulse Rate 86 86 85 Pulse Rate [Radial] Respiratory Rate 13 12 18 Blood Pressure 124/65 131/86 133/55 L Blood Pressure [Right Arm] Blood Pressure Mean [Right Arm] Blood Pressure Source [Right Arm] Blood Pressure Position [Right Arm] 02 Sat by Pulse Oximetry 92 L 93 L 98 Oxygen Delivery Method Room Air Room Air Oxygen Flow Rate (LPM) 11/09/24 18:31 11/09/24 19:16 Temperature 98.0 F Temperature Source Tympanic Pulse Rate 70 71 Pulse Rate [Radial] Respiratory Rate 16 20 Blood Pressure 114/83 132/80 Blood Pressure [Right Arm] Blood Pressure Mean [Right Arm] Blood Pressure Source [Right Arm] Blood Pressure Position [Right Arm] 02 Sat by Pulse Oximetry 96 Oxygen Delivery Method Room Air Room Air Oxygen Flow Rate (LPM) Lab Data Lab Results 11/09/24 13:10: WBC 6.5, RBC 4.36 L, Hgb 14.9, Hct 44.9, MCV 103.0 H, MCH 34.2 H , MCHC 33.2, RDW 11.9, Plt Count 155, MPV 11.1 H, Neut % (Auto) 64.4, Lymph % (Auto) 21.6, Merrick % (Auto) 9.9 H, Eos % (Auto) 3.2, Baso % (Auto) 0.6, Neut # (Auto) 4.2, Lymph # (Auto) 1.4, Merrick # (Auto) 0.6, Eos # (Auto) 0.2, Baso # (Auto) 0.0, Sodium 141, Potassium 4.1, Chloride 111 H, Carbon Dioxide 27, Anion Gap 7.1, BUN 7 L, Creatinine 0.80, Estimated Creat Clear 128, Estimated GFR 97, Est GFR ( Amer) 117, Glucose 119 H, Calcium 8.8, Magnesium 1.6, Total Bilirubin 0.4, AST 34, ALT 17, Alkaline Phosphatase 64, Total Creatine Kinase 73, Troponin I < 0.01, NT-Pro-B Natriuret Pep 264 H, Total Protein 6.1 L, Albumin 3.6, Globulin 2.5, Albumin/Globulin Ratio 1.4, Lipase 66, HCV Ab BHARAT w/Rflx PCR Qn Reactive, HIV Ag/Ab Combo Qual Negative 11/09/24 15:52: Troponin I < 0.01 11/09/24 13:10 11/09/24 13:10 Orders (Tests/Meds): ED MEDICATIONS Discontinued Medications Generic Name Dose Route Start Last Admin Trade Name Freq PRN Reason Stop Dose Admin Hydromorphone HCl 0.5 mg 11/09/24 12:58 11/09/24 13:08 Hydromorphone 2mg/Ml Syringe IV 11/09/24 12:59 0.5 mg ONCE ONE Administration Magnesium Sulfate 2 gm in 50 mls @ 50 mls/hr 11/09/24 13:10 11/09/24 13:27 Magnesium Sulfate 2gm/50ml Premix IV 11/09/24 14:09 50 mls/hr ONCE ONE Administration Iopamidol 75 ml 11/09/24 13:58 11/09/24 13:58 Iopamidol-370 (76%);100ml Bottle IV 11/09/24 13:59 75 ml ONCE ONE Administration Magnesium Oxide 800 mg 11/09/24 13:09 11/09/24 13:27 Magnesium Oxide 400mg Tablet PO 11/09/24 13:10 800 mg ONCE ONE Administration Oxycodone/Acetaminophen 1 each 11/09/24 19:17 11/09/24 19:20 Oxycodone 5mg W/Apap 325mg Tablet PO 11/09/24 19:18 1 each ONCE ONE Administration Sodium Chloride 10 ml 11/09/24 13:58 11/09/24 13:58 Sodium Chloride 0.9% 10ml Syr (Rad Only) IV 11/09/24 13:59 10 ml ONCE ONE Administration ORDERS Category Date Time Status CT abdomen pelvis w con Stat Cat Scan 11/09/24 12:[address] cervical spine wo con Stat Cat Scan 11/09/24 12:[address] chest w con Stat Cat Scan 11/09/24 12:[address] head/brain wo con Stat Cat Scan 11/09/24 12:34 Completed Pelvis XR 1-2 views [XR pelvis 1-2V] Stat Exams 11/09/24 12:35 Completed XR chest portable Stat Exams 11/09/24 12:35 Completed CK [Creatine Kinase] Stat Lab 11/09/24 13:10 Completed Complete Blood Count Auto Diff Stat Lab 11/09/24 13:10 Completed Comprehensive Metabolic Panel Stat Lab 11/09/24 13:10 Completed HCV RNA PCR, Quant Stat Lab 11/09/24 13:10 Received HIV Combo Stat Lab 11/09/24 13:10 Completed Hepatitis C Ab Qual. W/ RFX Stat Lab 11/09/24 13:10 Completed Lipase Stat Lab 11/09/24 13:10 Completed MAG [Magnesium] Stat Lab 11/09/24 13:10 Completed NT Pro Brain Natriuretic Pep. Stat Lab 11/09/24 13:10 Completed Troponin I Q3H Lab 11/09/24 15:52 Completed Troponin I Stat Lab 11/09/24 13:10 Completed Medical Decision Narrative: 60-year-old male presents the emergency department with a fall, differential diagnose, not limited to, rib fracture, pneumothorax, pulmonary contusion, cardiac arrhythmia, electro disturbance, superficial soft tissue injury, hematoma, acute SDH, traumatic SAH. Discussed patient case with infusion Will obtain basic laboratory studies, creatinine kinase level, lipase proBNP troponin, EKG, chest x-ray, pelvic x-ray, CT chest with contrast, CT and pelvis with contrast, CT of the spine without contrast CT head without contrast, will give 0.5 mg IV Dilaudid for pain Per attending physician, patient had severely elongated QT on EKG, will give at her milligram p.o. mag oxide, and 2 g IV magnesium, hold off on Dilaudid administration at this time as patient has become somewhat more somnolent, and oxygen saturation is decreased, per nursing staff, patient was changed to 3 L nasal cannula, oxygen saturation improved to 95 to 96%. CBC notable for elevated MCV at 103, otherwise unremarkable. CMP notable for hyperchloremia at 111. Troponin within normal limits, lipase within normal limits, proBNP is mildly evaded at 264. CK within normal limits, magnesium level within normal limits. I reviewed the patient's CT cervical spine without contrast on the corresponding radiologic report, no acute osseous abnormality of the cervical spine, with lower degenerative disc disease remains present and stable. I reviewed the patient's CT head without contrast on the corresponding radiologic report, no acute intracranial abnormality, chronic findings of encephalomalacia of the left occipital lobe and inferior left cerebellum that are stable. I reviewed the patient's chest x-ray along the corresponding radiologic report, bibasilar opacities favor atelectasis, no large pneumothorax and limited evaluation of the ribs. I reviewed the patient CT chest with contrast on the corresponding radiologic report there is no acute intrathoracic abnormality. I reviewed the patient's CT and pelvis with contrast along the corresponding radiologic report nodular liver is present consistent with cirrhosis bilateral nonobstructive renal stones are present also seen on prior CT, no acute intra- abdominal or intrapelvic abnormality is identified. Reviewed the patient's pelvic x-ray along the corresponding radiologic report no acute bony abnormality. Discussed the patient case with the hospitalist on-call at approximately 4:30 PM, he would like me to touch base with cardiology regarding the patient's QT prolongation and fall. Whether or not this patient needs to be admitted for observation versus outpatient treatment for QT prolongation and fall. At this time pending cardiology input, hospitalist does not believe that the patient meets inpatient criteria. I will touch base with cardiology. I did discuss this patient's case with the on-call intermodal owner operator truck driver at approximately 5:59 PM, he reviewed the patient's EKGs, he believes that this is not a true elongation of the patient's QT interval compared to patient's previous EKG in 2023. I was able to obtain additional history by the patient's at the bedside patient's states that the patient was drunk , when he fell, patient adamantly denies any dizziness, any presyncopal or syncopal type event. Patient is well-controlled as far as his pain, oxygen saturation/road test was performed, patient's oxygen saturation at room air was 94 to 95%.I discussed patient case with the attending physician Dr. Edouard prior to discharge. Patient does have supplemental oxygen as needed at home. Patient will be discharged home to self-care, I think this is appropriate at this point, now the patient is not requiring any supplemental oxygen therapy at this time. Pain is better controlled as well as QT prolongation not concerning per cardiology. I discussed this with the patient family the bedside, patient follow-up PCP as directed, strict ED return precautions once again given, will prescribe Mucinex for expectorant for the patient. Voiced understanding of current treatment plan/discharge plan. <Timothy Hanley MD - Last Filed: 11/10/24 10:37> Vital Signs: 11/09/24 12:14 11/09/24 12:52 11/09/24 13:00 Temperature 97.9 F Temperature Source Oral Pulse Rate 86 82 Pulse Rate [Radial] 96 H Respiratory Rate 18 Blood Pressure 107/84 L 120/78 Blood Pressure [Right Arm] 124/65 Blood Pressure Mean [Right Arm] 84 Blood Pressure Source [Right Arm] Automatic Cuff Blood Pressure Position [Right Arm] Sitting 02 Sat by Pulse Oximetry 91 L 93 L 93 L Oxygen Delivery Method Nasal Cannula Oxygen Flow Rate (LPM) 2 11/09/24 13:30 11/09/24 14:31 11/09/24 15:00 Temperature Temperature Source Pulse Rate 87 94 H 97 H Pulse Rate [Radial] Respiratory Rate 18 12 13 Blood Pressure 134/91 H 113/70 118/88 Blood Pressure [Right Arm] Blood Pressure Mean [Right Arm] Blood Pressure Source [Right Arm] Blood Pressure Position [Right Arm] 02 Sat by Pulse Oximetry 83 L 94 L 91 L Oxygen Delivery Method Room Air Oxygen Flow Rate (LPM) 11/09/24 15:30 11/09/24 16:00 11/09/24 16:31 Temperature Temperature Source Pulse Rate 89 86 87 Pulse Rate [Radial] Respiratory Rate 14 11 L 12 Blood Pressure 116/73 120/78 111/65 Blood Pressure [Right Arm] Blood Pressure Mean [Right Arm] Blood Pressure Source [Right Arm] Blood Pressure Position [Right Arm] 02 Sat by Pulse Oximetry 93 L 92 L 94 L Oxygen Delivery Method Room Air Room Air Room Air Oxygen Flow Rate (LPM) 11/09/24 17:00 11/09/24 17:30 11/09/24 18:01 Temperature Temperature Source Pulse Rate 86 86 85 Pulse Rate [Radial] Respiratory Rate 13 12 18 Blood Pressure 124/65 131/86 133/55 L Blood Pressure [Right Arm] Blood Pressure Mean [Right Arm] Blood Pressure Source [Right Arm] Blood Pressure Position [Right Arm] 02 Sat by Pulse Oximetry 92 L 93 L 98 Oxygen Delivery Method Room Air Room Air Oxygen Flow Rate (LPM) 11/09/24 18:31 11/09/24 19:16 Temperature 98.0 F Temperature Source Tympanic Pulse Rate 70 71 Pulse Rate [Radial] Respiratory Rate 16 20 Blood Pressure 114/83 132/80 Blood Pressure [Right Arm] Blood Pressure Mean [Right Arm] Blood Pressure Source [Right Arm] Blood Pressure Position [Right Arm] 02 Sat by Pulse Oximetry 96 Oxygen Delivery Method Room Air Room Air Oxygen Flow Rate (LPM) Lab Data Lab Results 11/09/24 13:10: WBC 6.5, RBC 4.36 L, Hgb 14.9, Hct 44.9, MCV 103.0 H, MCH 34.2 H , MCHC 33.2, RDW 11.9, Plt Count 155, MPV 11.1 H, Neut % (Auto) 64.4, Lymph % (Auto) 21.6, Merrick % (Auto) 9.9 H, Eos % (Auto) 3.2, Baso % (Auto) 0.6, Neut # (Auto) 4.2, Lymph # (Auto) 1.4, Merrick # (Auto) 0.6, Eos # (Auto) 0.2, Baso # (Auto) 0.0, Sodium 141, Potassium 4.1, Chloride 111 H, Carbon Dioxide 27, Anion Gap 7.1, BUN 7 L, Creatinine 0.80, Estimated Creat Clear 128, Estimated GFR 97, Est GFR ( Amer) 117, Glucose 119 H, Calcium 8.8, Magnesium 1.6, Total Bilirubin 0.4, AST 34, ALT 17, Alkaline Phosphatase 64, Total Creatine Kinase 73, Troponin I < 0.01, NT-Pro-B Natriuret Pep 264 H, Total Protein 6.1 L, Albumin 3.6, Globulin 2.5, Albumin/Globulin Ratio 1.4, Lipase 66, HCV Ab BHARAT w/Rflx PCR Qn Reactive, HIV Ag/Ab Combo Qual Negative 11/09/24 15:52: Troponin I < 0.01 Orders (Tests/Meds): ED MEDICATIONS Discontinued Medications Generic Name Dose Route Start Last Admin Trade Name Freq PRN Reason Stop Dose Admin Hydromorphone HCl 0.5 mg 11/09/24 12:58 11/09/24 13:08 Hydromorphone 2mg/Ml Syringe IV 11/09/24 12:59 0.5 mg ONCE ONE Administration Magnesium Sulfate 2 gm in 50 mls @ 50 mls/hr 11/09/24 13:10 11/09/24 13:27 Magnesium Sulfate 2gm/50ml Premix IV 11/09/24 14:09 50 mls/hr ONCE ONE Administration Iopamidol 75 ml 11/09/24 13:58 11/09/24 13:58 Iopamidol-370 (76%);100ml Bottle IV 11/09/24 13:59 75 ml ONCE ONE Administration Magnesium Oxide 800 mg 11/09/24 13:09 11/09/24 13:27 Magnesium Oxide 400mg Tablet PO 11/09/24 13:10 800 mg ONCE ONE Administration Oxycodone/Acetaminophen 1 each 11/09/24 19:17 11/09/24 19:20 Oxycodone 5mg W/Apap 325mg Tablet PO 11/09/24 19:18 1 each ONCE ONE Administration Sodium Chloride 10 ml 11/09/24 13:58 11/09/24 13:58 Sodium Chloride 0.9% 10ml Syr (Rad Only) IV 11/09/24 13:59 10 ml ONCE ONE Administration ORDERS Category Date Time Status CT abdomen pelvis w con Stat Cat Scan 11/09/24 12:[address] cervical spine wo con Stat Cat Scan 11/09/24 12:[address] chest w con Stat Cat Scan 11/09/24 12:[address] head/brain wo con Stat Cat Scan 11/09/24 12:34 Completed Pelvis XR 1-2 views [XR pelvis 1-2V] Stat Exams 11/09/24 12:35 Completed XR chest portable Stat Exams 11/09/24 12:35 Completed CK [Creatine Kinase] Stat Lab 11/09/24 13:10 Completed Complete Blood Count Auto Diff Stat Lab 11/09/24 13:10 Completed Comprehensive Metabolic Panel Stat Lab 11/09/24 13:10 Completed HCV RNA PCR, Quant Stat Lab 11/09/24 13:10 Received HIV Combo Stat Lab 11/09/24 13:10 Completed Hepatitis C Ab Qual. W/ RFX Stat Lab 11/09/24 13:10 Completed Lipase Stat Lab 11/09/24 13:10 Completed MAG [Magnesium] Stat Lab 11/09/24 13:10 Completed NT Pro Brain Natriuretic Pep. Stat Lab 11/09/24 13:10 Completed Troponin I Q3H Lab 11/09/24 15:52 Completed Troponin I Stat Lab 11/09/24 13:10 Completed ECG Data Tracing #1: I reviewed this ECG and interpreted as documented below: (Sinus rhythm 82 bpm with [place] interval significantly prolonged 263, QRS 108, QTc significantly prolonged at 586. Normal axis, no acute ischemic change) Medical Decision Narrative: 60-year-old male presents the emergency department with a fall, differential diagnose, not limited to, rib fracture, pneumothorax, pulmonary contusion, cardiac arrhythmia, electro disturbance, superficial soft tissue injury, hematoma, acute SDH, traumatic SAH. Discussed patient case with infusion Will obtain basic laboratory studies, creatinine kinase level, lipase proBNP troponin, EKG, chest x-ray, pelvic x-ray, CT chest with contrast, CT and pelvis with contrast, CT of the spine without contrast CT head without contrast, will give 0.5 mg IV Dilaudid for pain Per attending physician, patient had severely elongated QT on EKG, will give at her milligram p.o. mag oxide, and 2 g IV magnesium, hold off on Dilaudid administration at this time as patient has become somewhat more somnolent, and oxygen saturation is decreased, per nursing staff, patient was changed to 3 L nasal cannula, oxygen saturation improved to 95 to 96%. CBC notable for elevated MCV at 103, otherwise unremarkable. CMP notable for hyperchloremia at 111. Troponin within normal limits, lipase within normal limits, proBNP is mildly evaded at 264. CK within normal limits, magnesium level within normal limits. I reviewed the patient's CT cervical spine without contrast on the corresponding radiologic report, no acute osseous abnormality of the cervical spine, with lower degenerative disc disease remains present and stable. I reviewed the patient's CT head without contrast on the corresponding radiologic report, no acute intracranial abnormality, chronic findings of encephalomalacia of the left occipital lobe and inferior left cerebellum that are stable. I reviewed the patient's chest x-ray along the corresponding radiologic report, bibasilar opacities favor atelectasis, no large pneumothorax and limited evaluation of the ribs. I reviewed the patient CT chest with contrast on the corresponding radiologic report there is no acute intrathoracic abnormality. I reviewed the patient's CT and pelvis with contrast along the corresponding radiologic report nodular liver is present consistent with cirrhosis bilateral nonobstructive renal stones are present also seen on prior CT, no acute intra- abdominal or intrapelvic abnormality is identified. Reviewed the patient's pelvic x-ray along the corresponding radiologic report no acute bony abnormality. Discussed the patient case with the hospitalist on-call at approximately 4:30 PM, he would like me to touch base with cardiology regarding the patient's QT prolongation and fall. Whether or not this patient needs to be admitted for observation versus outpatient treatment for QT prolongation and fall. At this time pending cardiology input, hospitalist does not believe that the patient meets inpatient criteria. I will touch base with cardiology. I did discuss this patient's case with the on-call intermodal owner operator truck driver at approximately 5:59 PM, he reviewed the patient's EKGs, he believes that this is not a true elongation of the patient's QT interval compared to patient's previous EKG in 2023. I was able to obtain additional history by the patient's at the bedside patient's states that the patient was drunk , when he fell, patient adamantly denies any dizziness, any presyncopal or syncopal type event. Patient is well-controlled as far as his pain, oxygen saturation/road test was performed, patient's oxygen saturation at room air was 94 to 95%.I discussed patient case with the attending physician Dr. Edouard prior to discharge. Patient does have supplemental oxygen as needed at home. Patient will be discharged home to self-care, I think this is appropriate at this point, now the patient is not requiring any supplemental oxygen therapy at this time. Pain is better controlled as well as QT prolongation not concerning per cardiology. I discussed this with the patient family the bedside, patient follow-up PCP as directed, strict ED return precautions once again given, will prescribe Mucinex for expectorant for the patient. Voiced understanding of current treatment plan/discharge plan. I was consulted by the CLAUDIA, and we discussed the complexity of the problems being addressed. I approved the treatment and management plan for this patient's care in the Emergency Department, thus performing a substantive portion of the medical decision making. Timothy Hanley MD Critical Care <ESTEPHANIA Zelaya - Last Filed: 11/09/24 19:08> Critical Care Time Critical Care Time: No
--- NOTE | 2024-11-09 12:34 | CT_ITS ---
FINAL REPORT TECHNIQUE: Thin section axial images were obtained from the thoracic inlet through the upper abdomen after intravenous contrast injection. Reconstruction images were obtained from the axial data. Exam was performed using dose reduction technique. This study was performed with techniques to keep radiation doses as low as reasonably achievable (ALARA). Individualized dose reduction techniques using automated exposure control or adjustment of mA and/or kV according to the patient's size were employed. CLINICAL HISTORY: Fall/trauma, right-sided rib pain COMPARISON: None FINDINGS: There is no mediastinal, hilar, or axillary lymphadenopathy. There is no pleural or pericardial effusion. No pneumothorax is present. There are no areas of pulmonary consolidation. Limited evaluation of the upper abdomen is without acute abnormality. No acute osseous abnormality. IMPRESSION: No acute intrathoracic abnormality. Reviewed, Interpreted and Dictated by Diana Mustafa MD Transcribed by Diya Salgado Authenticated and [facility]
--- NOTE | 2024-11-09 12:34 | CT_ITS ---
FINAL REPORT TECHNIQUE: Thin section axial images were obtained from skull base to vertex without contrast. Coronal and sagittal reconstruction images were obtained from the axial data. Exam was performed using dose reduction techniques such as automated exposure control, adjustment of the mA and kV according to patient size, and use of iterative reconstruction technique. This study was performed with techniques to keep radiation doses as low as reasonably achievable (ALARA). Individualized dose reduction techniques using automated exposure control or adjustment of mA and/or kV according to the patient's size were employed. CLINICAL HISTORY: fall, head trauma, negative loc COMPARISON: 01/14/2024 FINDINGS: There is no mass effect or midline shift. There is no hydrocephalus. There is no intracranial hemorrhage. There is encephalomalacia present in the left occipital lobe and the inferior left cerebellum, stable since the prior CT of 01/14/2024. The posterior fossa is without acute abnormality. The basilar cisterns are preserved. Mild soft tissue edema is noted in the left frontal scalp. No acute osseous abnormality is identified. IMPRESSION: No acute intracranial abnormality. Chronic findings of encephalomalacia in the left occipital lobe and the inferior left cerebellum, stable. Reviewed, Interpreted and Dictated by Diana Mustafa MD Transcribed by Diya Salgado Authenticated and [facility]
--- NOTE | 2024-11-09 12:34 | CT_ITS ---
FINAL REPORT TECHNIQUE: Thin section axial images were obtained through the cervical spine without contrast. Multiplanar reconstruction images were obtained from the axial data. Exam was performed using dose reduction techniques. This study was performed with techniques to keep radiation doses as low as reasonably achievable (ALARA). Individualized dose reduction techniques using automated exposure control or adjustment of mA and/or kV according to the patient's size were employed. CLINICAL HISTORY: Fall, negative loc, rt rib pain COMPARISON: 01/14/2024 FINDINGS: There is no acute fracture or acute malalignment of the cervical spine. The craniocervical junction is intact. There is no evidence of unilateral or bilateral facet lock. Vertebral body height is preserved. Multilevel degenerative disc disease is present, stable when compared to the prior exam. No acute paraspinal abnormality is identified. IMPRESSION: No acute osseous abnormality of the cervical spine. Multilevel degenerative disc disease remains present, and stable. Reviewed, Interpreted and Dictated by Diana Mustafa MD Transcribed by Diya Salgado Authenticated and [facility]
--- NOTE | 2024-11-09 12:35 | CT_ITS ---
FINAL REPORT TECHNIQUE: Thin section axial images are obtained through the abdomen and pelvis after intravenous contrast. Reconstruction images were obtained from the axial data. Exam was performed using dose reduction techniques. This study was performed with techniques to keep radiation doses as low as reasonably achievable (ALARA). Individualized dose reduction techniques using automated exposure control or adjustment of mA and/or kV according to the patient's size were employed. CLINICAL HISTORY: Fall/trauma, right-sided rib pain COMPARISON: 02/05/2024 FINDINGS: LIVER: 8 nodular liver is present consistent with cirrhosis. No focal lesion. GALLBLADDER/BILIARY SYSTEM: The gallbladder is absent. No biliary dilatation. SPLEEN: Unremarkable. PANCREAS: Unremarkable. ADRENALS: Unremarkable. KIDNEYS/URETERS/BLADDER: Bilateral nonobstructing renal stones are noted. No evidence of hydronephrosis is present. Unremarkable urinary bladder. GI TRACT: No small bowel obstruction or dilatation. Normal appendix. No acute colon abnormality. PELVIC ORGANS: Unremarkable for age. LYMPH NODES/RETROPERITONEUM/MESENTERY: No lymphadenopathy. No abdominal aortic aneurysm. ABDOMINAL WALL: There is a left paramedian ventral hernia of the abdomen, containing fat. FREE FLUID: No ascites. BONES: No acute osseous abnormality. IMPRESSION: Nodular liver is present, consistent with cirrhosis. Bilateral nonobstructing renal stones are present, also seen on the prior CT. No acute intra-abdominal or intrapelvic abnormality is identified. Reviewed, Interpreted and Dictated by Diana Mustafa MD Transcribed by Diya Salgado Authenticated and [facility]
--- NOTE | 2024-11-09 12:35 | XR_ITS ---
FINAL REPORT CLINICAL HISTORY: Fall/trauma COMPARISON: 01/14/2024 FINDINGS: SINGLE VIEW PELVIS: A single view of the pelvis was obtained. There is no acute fracture or dislocation. 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 Soft tissues are unremarkable. IMPRESSION: No acute bony abnormality. Reviewed, Interpreted and Dictated by Diana Mustafa MD Transcribed by Leta Ellis Authenticated and [facility]
--- NOTE | 2024-11-09 12:35 | XR_ITS ---
FINAL REPORT CLINICAL HISTORY: Fall/trauma, right rib pain COMPARISON: 01/14/2024 FINDINGS: A portable view of the chest was obtained. Cardiac and mediastinal silhouettes are within normal limits. Bibasilar opacities are present, favor atelectasis. There is no large pleural effusion or pneumothorax. There is limited ability to evaluate the ribs on either side. IMPRESSION: Bibasilar opacities, favor atelectasis. No large pneumothorax, and limited evaluation of the ribs. Reviewed, Interpreted and Dictated by Diana Mustafa MD Transcribed by Diya Salgado Authenticated and [facility]
--- NOTE | 2024-11-09 12:51 | ECG_ITS ---
APPROVED REPORT Exam: Resting ECG HR:82 bpm ECG Measurements Heart Rate 82 AXES TN 263 P -52 QRSd 108 QRS 46 QT 548 T 77 QTc 586 Conclusion Sinus rhythm first-degree AV block Prolonged QT interval Electronically signed by : TERRI ARMENDARIZ, 11/10/2024 07:30:40
[2024-11-09] MEDS: HYDROMORPHONE 2MG/ML SYRINGE 0.5 MG IV (13:08)
[2024-11-09 13:22] LABS: Basophils % 0.6 % (0.1-2.0); Eosinophils # 0.2 K/mm3 (0.0-0.4); Eosinophils % 3.2 % (0.1-12.0); Hematocrit 44.9 % (42.0-52.0); Hemoglobin 14.9 g/dL (14.1-18.0); Lymphocytes # 1.4 K/mm3 (0.7-4.5); Lymphocytes % 21.6 % (10-50); Mean Corpuscular HGB Conc 33.2 g/dL (31.8-35.4); Mean Corpuscular Hemoglobin 34.2 pg (27.0-31.2); Mean Platelet Volume 11.1 fl (7.4-10.4); Monocytes # 0.6 K/mm3 (0.1-1.0); Monocytes % 9.9 % (1.7-9.3); Neutrophils # 4.2 K/mm3 (1.8-7.8); Neutrophils % 64.4 % (37.0-80.0); Platelet Count 155 K/mm3 (142-424); Red Blood Count 4.36 M/mm3 (4.60-6.20); Red Cell Distribution Width 11.9 % (11.5-17.5); White Blood Count 6.5 K/mm3 (4.8-10.8)
[2024-11-09] MEDS: MAGNESIUM SULFATE IN WATER 2 GM/50 ML PIGGYBACK IV (13:27)
[2024-11-09] MEDS: MAGNESIUM OXIDE 400MG TABLET 800 MG PO (13:27)
[2024-11-09 13:33] LABS: Albumin Level 3.6 g/dl (3.5-5.0); Chloride 111 mmol/L (98-107); Sodium 141 mmol/L (136-145)
[2024-11-09 13:34] LABS: Potassium 4.1 mmoL/L (3.5-5.1)
[2024-11-09 13:36] LABS: Alanine Aminotransferase 17 U/L (12-78); Anion Gap 7.1 mEq/L (5-15); Aspartate Amino Transferase 34 U/L (17-59); Bilirubin,Total 0.4 mg/dl (0.2-1.3); Blood Urea Nitrogen 7 mg/dl (9-20); Carbon Dioxide 27 mmol/L (22.0-30.0); Creatinine Clearance Estimated 128 mL/min (50-200); Estimated Glomerular Filt Rate 97 ml/min (>60); GFR (African American) 117 ML/MIN (>60)
[2024-11-09 13:37] LABS: Albumin/Globulin Ratio 1.4 (1.1-1.8); Alkaline Phosphatase 64 U/L (38-126); Calcium 8.8 mg/dl (8.4-10.2); Creatine Kinase 73 U/L (55-170); Globulin 2.5 g/dL (1.3-3.2); Glucose 119 mg/dl (74-100); Lipase 66 U/L (23-300); Total Protein,Serum 6.1 g/dl (6.3-8.2)
[2024-11-09 13:48] LABS: NT Pro Brain Natriuretic Pep. 264 pg/mL (0-125)
[2024-11-09 13:53] LABS: Troponin I < 0.01 ng/ml (0.00-0.034)
[2024-11-09 13:54] LABS: Magnesium 1.6 mg/dl (1.6-2.3)
[2024-11-09] MEDS: IOPAMIDOL-370 (76%);100ML BOTTLE 75 ML IV (13:58)
[2024-11-09] MEDS: SODIUM CHLORIDE 0.9% 10ML SYR (RAD ONLY) 10 ML IV (13:58)
[2024-11-09 14:36] LABS: HIV Combo NEGATIVE (Negative)
[2024-11-09 14:43] LABS: Hepatitis C Ab Qual. W/ RFX REACTIVE (Negative)
[2024-11-09 16:31] LABS: Troponin I < 0.01 ng/ml (0.00-0.034)
--- NOTE | 2024-11-09 19:13 | HMH.EDGENADL ---
Discharge Plan Disposition Patient Disposition: Home, Self-Care Condition: Fair Prescriptions Prescriptions: New guaifenesin [Mucinex] 600 mg tablet extended release 12hr 600 mg PO BID PRN (Reason: cough) Qty: 14 0RF guaifenesin [Mucinex] 600 mg tablet extended release 12hr 600 mg PO BID PRN (Reason: cough) Qty: 14 0RF No Action Creon 36,000-114,000- 180,000 unit capsule,delayed release(DR/EC) 1 cap PO DIRECTED tizanidine 4 mg tablet 4 mg PO DAILY Patient Comments: TAKE ONE TABLET BY MOUTH THREE TIMES DAILY NEEDED potassium chloride 10 mEq capsule, extended release 10 meq PO DAILY Patient Comments: TAKE ONE CAPSULE BY MOUTH NEEDED with lasix oxycodone 5 mg tablet 5 mg PO NEEDED PRN (Reason: Pain) escitalopram oxalate [Lexapro] 10 mg tablet 10 mg PO DAILY Qty: 30 2RF diclofenac sodium [Voltaren Arthritis Pain] 1 % gel 2 g topical QID Qty: 100 2RF Rx Instructions: apply to single elbow, wrist or hand; for hand includes palm/fingers/back of hand pantoprazole 20 mg tablet,delayed release (DR/EC) 20 mg PO DAILY Qty: 90 2RF Xarelto 20 mg tablet 10 mg PO DAILY Qty: 30 1RF furosemide 20 mg tablet See Rx Instructions .ROUTE .COMPLEX Qty: 90 0RF Dose Instruction: TAKE 1/2 TABLET BY MOUTH ONCE A DAY FOR FLUID RETENTION Rx Instructions: TAKE 1/2 TABLET BY MOUTH ONCE A DAY FOR FLUID RETENTION tamsulosin [Flomax] 0.4 mg capsule 0.4 mg PO DAILY Qty: 30 3RF tadalafil [Cialis] 5 mg tablet 5 mg PO DAILY Qty: 30 2RF albuterol sulfate 90 mcg/actuation HFA aerosol inhaler 2 inh inhalation Q4H PRN (Reason: shortness of breath or wheezing) Qty: 6.7 0RF qjnfzmdoktdokny-uotftbvxc-LC [Bromfed DM] 2-30-10 mg/5 mL syrup 5 ml PO Q6H PRN (Reason: cold symptoms) Qty: 118 0RF Referrals Follow up/Referrals: Provider,Referral, MD [Referring] - See instructions Activity Restrictions/Add. Instructions Additional Instructions/Restrictions: Please return to the emergency department any worsening signs or symptoms, any difficulty breathing, any worsening pain, please follow-up with your family doctor. Please take all medication as prescribed. Utilize at home oxygen as needed. Clinical Impressions Clinical Impression: Fall, Acute costochondritis Instructions Patient Instructions: Costochondritis, How to Prevent Falls Print Language Print Language: Albanian Discharge ED Provider: Timothy Hanley General Adult HPI <ESTEPHANIA Zelaya - Last Filed: 11/09/24 19:17> General Chief complaint: Fall Stated complaint: rt side pain/fall Time Seen by Provider: 11/09/24 12:23 Mode of Arrival: EMS Source of Information: Patient Description of Symptoms (Recalled from ER Triage Doc. by RN): Reports falling in his garage last night injuring his right rib cage. Also states that he did hit his head. No LOC. No blood thinners. Complaint of right rib pain. History of Present Illness Onset (ago): hour(s) Related Data Home Medications ?Medication ?Instructions ?Recorded ?Confirmed ojnwgt-sretfydv-tyhtuoo 1 cap PO DIRECTED 09/11/23 10/26/24 36,000-114,000-180,000 unit capsule,delay rel (Creon) oxycodone 5 mg tablet 5 mg PO NEEDED PRN Pain 09/11/23 10/26/24 potassium chloride 10 mEq 10 meq PO DAILY 09/11/23 10/26/24 capsule,extended release tizanidine 4 mg tablet 4 mg PO DAILY 09/11/23 10/26/24 Previous Rx's ?Medication ?Instructions ?Recorded albuterol sulfate 90 mcg/actuation 2 inh inhalation Q4H PRN shortness 01/14/24 aerosol inhaler of breath or wheezing #6.7 grams bytmphwgydcfujg-vyooakzygwawvvb-DK 5 ml PO Q6H PRN cold symptoms #118 01/14/24 2 mg-30 mg-10 mg/5 mL oral syrup mL (Bromfed DM) escitalopram oxalate 10 mg tablet 10 mg PO DAILY #30 tabs 04/13/24 (Lexapro) rivaroxaban 20 mg tablet (Xarelto) 10 mg (1/2 x 20 mg) PO DAILY DVT 05/19/24 #30 tabs furosemide 20 mg tablet See Rx Instructions .Route 07/02/24 .COMPLEX #90 tabs diclofenac sodium 1 % topical gel 2 g topical QID #100 grams 07/07/24 (Voltaren Arthritis Pain) tadalafil 5 mg tablet (Cialis) 5 mg PO DAILY #30 tabs 10/15/24 tamsulosin 0.4 mg capsule (Flomax) 0.4 mg PO DAILY #30 caps 10/15/24 pantoprazole 20 mg tablet,delayed 20 mg PO DAILY #90 tabs 10/26/24 release guaifenesin 600 mg tablet, 600 mg PO BID PRN cough #14 tabs 11/09/24 extended release 12 hr (Mucinex) guaifenesin 600 mg tablet, 600 mg PO BID PRN cough #14 tabs 11/09/24 extended release 12 hr (Mucinex) Allergies Allergy/AdvReac Type Severity Reaction Status Date / Time gabapentin (From Neurontin) AdvReac Mild Verified 10/26/24 14:49 PFS <ESTEPHANIA Zelaya - Last Filed: 11/09/24 19:17> PFS Disclaimer: The information contained in this section may have been updated after the patient was seen, as this information can be updated by other users. 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: No Exposure to someone with infectious disease in past 14 days?: No Do you have a fever (greater than 100.4 F or 38 C)?: No Have you tested positive for COVID-19: No Exposed to someone with COVID-19 in past 14 days?: No Do you have a sore throat?: No Do you have a cough?: No Do you have any weakness?: No Do you have any diarrhea?: No Are you experiencing any unusual bleeding?: No Do you have any muscle aches/pain?: No Do you have any abdominal pain?: No Are you experiencing loss of taste or smell?: No Other Medical History Have you received the Pneumonia Vaccine: Yes <ESTEPHANIA Zelaya - Last Filed: 11/09/24 19:17> ROS Obtained: Yes All systems reviewed & no additional complaints except as documented Physical Exam <ESTEPHANIA Zelaya - Last Filed: 11/09/24 19:17> General General appearance: alert and in no apparent distress Respiratory Respiratory exam: Present normal lung sounds bilaterally Cardiovascular Cardiovascular exam: Present regular rate Neurological Exam Neurological exam: Present alert Medical Decision Making <ESTEPHANIA Zelaya - Last Filed: 11/09/24 19:17> Medical Records Screening: Per USPSTF and CDC recommendations, given the prevalence of disease in our region, it is our hospital?s policy to screen for HIV and viral Hepatitis for all patients aged 18 and over and those with ongoing risk factors. Elias Inquiry Pt receiving controlled substance: Yes Elias was queried for this patient: No Risks and benefits of using a controlled substance: were discussed with pt by me Vital Signs: 11/09/24 12:14 11/09/24 12:52 11/09/24 13:00 Temperature 97.9 F Temperature Source Oral Pulse Rate 86 82 Pulse Rate [Radial] 96 H Respiratory Rate 18 Blood Pressure 107/84 L 120/78 Blood Pressure [Right Arm] 124/65 Blood Pressure Mean [Right Arm] 84 Blood Pressure Source [Right Arm] Automatic Cuff Blood Pressure Position [Right Arm] Sitting 02 Sat by Pulse Oximetry 91 L 93 L 93 L Oxygen Delivery Method Nasal Cannula Oxygen Flow Rate (LPM) 2 11/09/24 13:30 11/09/24 14:31 11/09/24 15:00 Temperature Temperature Source Pulse Rate 87 94 H 97 H Pulse Rate [Radial] Respiratory Rate 18 12 13 Blood Pressure 134/91 H 113/70 118/88 Blood Pressure [Right Arm] Blood Pressure Mean [Right Arm] Blood Pressure Source [Right Arm] Blood Pressure Position [Right Arm] 02 Sat by Pulse Oximetry 83 L 94 L 91 L Oxygen Delivery Method Room Air Oxygen Flow Rate (LPM) 11/09/24 15:30 11/09/24 16:00 11/09/24 16:31 Temperature Temperature Source Pulse Rate 89 86 87 Pulse Rate [Radial] Respiratory Rate 14 11 L 12 Blood Pressure 116/73 120/78 111/65 Blood Pressure [Right Arm] Blood Pressure Mean [Right Arm] Blood Pressure Source [Right Arm] Blood Pressure Position [Right Arm] 02 Sat by Pulse Oximetry 93 L 92 L 94 L Oxygen Delivery Method Room Air Room Air Room Air Oxygen Flow Rate (LPM) 11/09/24 17:00 11/09/24 17:30 11/09/24 18:01 Temperature Temperature Source Pulse Rate 86 86 85 Pulse Rate [Radial] Respiratory Rate 13 12 18 Blood Pressure 124/65 131/86 133/55 L Blood Pressure [Right Arm] Blood Pressure Mean [Right Arm] Blood Pressure Source [Right Arm] Blood Pressure Position [Right Arm] 02 Sat by Pulse Oximetry 92 L 93 L 98 Oxygen Delivery Method Room Air Room Air Oxygen Flow Rate (LPM) 11/09/24 18:31 11/09/24 19:16 Temperature 98.0 F Temperature Source Tympanic Pulse Rate 70 71 Pulse Rate [Radial] Respiratory Rate 16 20 Blood Pressure 114/83 132/80 Blood Pressure [Right Arm] Blood Pressure Mean [Right Arm] Blood Pressure Source [Right Arm] Blood Pressure Position [Right Arm] 02 Sat by Pulse Oximetry 96 Oxygen Delivery Method Room Air Room Air Oxygen Flow Rate (LPM) Lab Data Lab Results 11/09/24 13:10: WBC 6.5, RBC 4.36 L, Hgb 14.9, Hct 44.9, MCV 103.0 H, MCH 34.2 H, MCHC 33.2, RDW 11.9, Plt Count 155, MPV 11.1 H, Neut % (Auto) 64.4, Lymph % (Auto) 21.6, Elliott % (Auto) 9.9 H, Eos % (Auto) 3.2, Baso % (Auto) 0.6, Neut # (Auto) 4.2, Lymph # (Auto) 1.4, Elliott # (Auto) 0.6, Eos # (Auto) 0.2, Baso # (Auto) 0.0, Sodium 141, Potassium 4.1, Chloride 111 H, Carbon Dioxide 27, Anion Gap 7.1, BUN 7 L, Creatinine 0.80, Estimated Creat Clear 128, Estimated GFR 97, Est GFR ( Amer) 117, Glucose 119 H, Calcium 8.8, Magnesium 1.6, Total Bilirubin 0.4, AST 34, ALT 17, Alkaline Phosphatase 64, Total Creatine Kinase 73, Troponin I < 0.01, NT-Pro-B Natriuret Pep 264 H, Total Protein 6.1 L, Albumin 3.6, Globulin 2.5, Albumin/Globulin Ratio 1.4, Lipase 66, HCV Ab BHARAT w/Rflx PCR Qn Reactive, HIV Ag/Ab Combo Qual Negative 11/09/24 15:52: Troponin I < 0.01 11/09/24 13:10 11/09/24 13:10 Orders (Tests/Meds): ED MEDICATIONS Discontinued Medications Generic Name Dose Route Start Last Admin Trade Name Freq PRN Reason Stop Dose Admin Hydromorphone HCl 0.5 mg 11/09/24 12:58 11/09/24 13:08 Hydromorphone 2mg/Ml Syringe IV 11/09/24 12:59 0.5 mg ONCE ONE Administration Magnesium Sulfate 2 gm in 50 mls @ 50 mls/hr 11/09/24 13:10 11/09/24 13:27 Magnesium Sulfate 2gm/50ml Premix IV 11/09/24 14:09 50 mls/hr ONCE ONE Administration Iopamidol 75 ml 11/09/24 13:58 11/09/24 13:58 Iopamidol-370 (76%);100ml Bottle IV 11/09/24 13:59 75 ml ONCE ONE Administration Magnesium Oxide 800 mg 11/09/24 13:09 11/09/24 13:27 Magnesium Oxide 400mg Tablet PO 11/09/24 13:10 800 mg ONCE ONE Administration Oxycodone/Acetaminophen 1 each 11/09/24 19:17 11/09/24 19:20 Oxycodone 5mg W/Apap 325mg Tablet PO 11/09/24 19:18 1 each ONCE ONE Administration Sodium Chloride 10 ml 11/09/24 13:58 11/09/24 13:58 Sodium Chloride 0.9% 10ml Syr (Rad Only) IV 11/09/24 13:59 10 ml ONCE ONE Administration ORDERS Category Date Time Status CT abdomen pelvis w con Stat Cat Scan 11/09/24 12:[address] cervical spine wo con Stat Cat Scan 11/09/24 12:[address] chest w con Stat Cat Scan 11/09/24 12:[address] head/brain wo con Stat Cat Scan 11/09/24 12:34 Completed Pelvis XR 1-2 views [XR pelvis 1-2V] Stat Exams 11/09/24 12:35 Completed XR chest portable Stat Exams 11/09/24 12:35 Completed CK [Creatine Kinase] Stat Lab 11/09/24 13:10 Completed Complete Blood Count Auto Diff Stat Lab 11/09/24 13:10 Completed Comprehensive Metabolic Panel Stat Lab 11/09/24 13:10 Completed HCV RNA PCR, Quant Stat Lab 11/09/24 13:10 Received HIV Combo Stat Lab 11/09/24 13:10 Completed Hepatitis C Ab Qual. W/ RFX Stat Lab 11/09/24 13:10 Completed Lipase Stat Lab 11/09/24 13:10 Completed MAG [Magnesium] Stat Lab 11/09/24 13:10 Completed NT Pro Brain Natriuretic Pep. Stat Lab 11/09/24 13:10 Completed Troponin I Q3H Lab 11/09/24 15:52 Completed Troponin I Stat Lab 11/09/24 13:10 Completed Medical Decision Narrative: Of note I was notified by staff the patient is complaining of pain upon discharge, patient takes Percocet 5 mg p.o. at home, will give 5 mg p.o. Percocet and will give incentive spirometer for prophylaxis. Patient again will return emergency department with any worsening signs or symptoms. Patient and family voiced understand agree with current treatment plan/discharge plan. Patient to use oxygen as needed at home. <Timothy Hanley MD - Last Filed: 11/10/24 10:37> Vital Signs: 11/09/24 12:14 11/09/24 12:52 11/09/24 13:00 Temperature 97.9 F Temperature Source Oral Pulse Rate 86 82 Pulse Rate [Radial] 96 H Respiratory Rate 18 Blood Pressure 107/84 L 120/78 Blood Pressure [Right Arm] 124/65 Blood Pressure Mean [Right Arm] 84 Blood Pressure Source [Right Arm] Automatic Cuff Blood Pressure Position [Right Arm] Sitting 02 Sat by Pulse Oximetry 91 L 93 L 93 L Oxygen Delivery Method Nasal Cannula Oxygen Flow Rate (LPM) 2 11/09/24 13:30 11/09/24 14:31 11/09/24 15:00 Temperature Temperature Source Pulse Rate 87 94 H 97 H Pulse Rate [Radial] Respiratory Rate 18 12 13 Blood Pressure 134/91 H 113/70 118/88 Blood Pressure [Right Arm] Blood Pressure Mean [Right Arm] Blood Pressure Source [Right Arm] Blood Pressure Position [Right Arm] 02 Sat by Pulse Oximetry 83 L 94 L 91 L Oxygen Delivery Method Room Air Oxygen Flow Rate (LPM) 11/09/24 15:30 11/09/24 16:00 11/09/24 16:31 Temperature Temperature Source Pulse Rate 89 86 87 Pulse Rate [Radial] Respiratory Rate 14 11 L 12 Blood Pressure 116/73 120/78 111/65 Blood Pressure [Right Arm] Blood Pressure Mean [Right Arm] Blood Pressure Source [Right Arm] Blood Pressure Position [Right Arm] 02 Sat by Pulse Oximetry 93 L 92 L 94 L Oxygen Delivery Method Room Air Room Air Room Air Oxygen Flow Rate (LPM) 11/09/24 17:00 11/09/24 17:30 11/09/24 18:01 Temperature Temperature Source Pulse Rate 86 86 85 Pulse Rate [Radial] Respiratory Rate 13 12 18 Blood Pressure 124/65 131/86 133/55 L Blood Pressure [Right Arm] Blood Pressure Mean [Right Arm] Blood Pressure Source [Right Arm] Blood Pressure Position [Right Arm] 02 Sat by Pulse Oximetry 92 L 93 L 98 Oxygen Delivery Method Room Air Room Air Oxygen Flow Rate (LPM) 11/09/24 18:31 11/09/24 19:16 Temperature 98.0 F Temperature Source Tympanic Pulse Rate 70 71 Pulse Rate [Radial] Respiratory Rate 16 20 Blood Pressure 114/83 132/80 Blood Pressure [Right Arm] Blood Pressure Mean [Right Arm] Blood Pressure Source [Right Arm] Blood Pressure Position [Right Arm] 02 Sat by Pulse Oximetry 96 Oxygen Delivery Method Room Air Room Air Oxygen Flow Rate (LPM) Lab Data Lab Results 11/09/24 13:10: WBC 6.5, RBC 4.36 L, Hgb 14.9, Hct 44.9, MCV 103.0 H, MCH 34.2 H, MCHC 33.2, RDW 11.9, Plt Count 155, MPV 11.1 H, Neut % (Auto) 64.4, Lymph % (Auto) 21.6, Elliott % (Auto) 9.9 H, Eos % (Auto) 3.2, Baso % (Auto) 0.6, Neut # (Auto) 4.2, Lymph # (Auto) 1.4, Elliott # (Auto) 0.6, Eos # (Auto) 0.2, Baso # (Auto) 0.0, Sodium 141, Potassium 4.1, Chloride 111 H, Carbon Dioxide 27, Anion Gap 7.1, BUN 7 L, Creatinine 0.80, Estimated Creat Clear 128, Estimated GFR 97, Est GFR ( Amer) 117, Glucose 119 H, Calcium 8.8, Magnesium 1.6, Total Bilirubin 0.4, AST 34, ALT 17, Alkaline Phosphatase 64, Total Creatine Kinase 73, Troponin I < 0.01, NT-Pro-B Natriuret Pep 264 H, Total Protein 6.1 L, Albumin 3.6, Globulin 2.5, Albumin/Globulin Ratio 1.4, Lipase 66, HCV Ab BHARAT w/Rflx PCR Qn Reactive, HIV Ag/Ab Combo Qual Negative 11/09/24 15:52: Troponin I < 0.01 Orders (Tests/Meds): ED MEDICATIONS Discontinued Medications Generic Name Dose Route Start Last Admin Trade Name Freq PRN Reason Stop Dose Admin Hydromorphone HCl 0.5 mg 11/09/24 12:58 11/09/24 13:08 Hydromorphone 2mg/Ml Syringe IV 11/09/24 12:59 0.5 mg ONCE ONE Administration Magnesium Sulfate 2 gm in 50 mls @ 50 mls/hr 11/09/24 13:10 11/09/24 13:27 Magnesium Sulfate 2gm/50ml Premix IV 11/09/24 14:09 50 mls/hr ONCE ONE Administration Iopamidol 75 ml 11/09/24 13:58 11/09/24 13:58 Iopamidol-370 (76%);100ml Bottle IV 11/09/24 13:59 75 ml ONCE ONE Administration Magnesium Oxide 800 mg 11/09/24 13:09 11/09/24 13:27 Magnesium Oxide 400mg Tablet PO 11/09/24 13:10 800 mg ONCE ONE Administration Oxycodone/Acetaminophen 1 each 11/09/24 19:17 11/09/24 19:20 Oxycodone 5mg W/Apap 325mg Tablet PO 11/09/24 19:18 1 each ONCE ONE Administration Sodium Chloride 10 ml 11/09/24 13:58 11/09/24 13:58 Sodium Chloride 0.9% 10ml Syr (Rad Only) IV 11/09/24 13:59 10 ml ONCE ONE Administration ORDERS Category Date Time Status CT abdomen pelvis w con Stat Cat Scan 11/09/24 12:[address] cervical spine wo con Stat Cat Scan 11/09/24 12:[address] chest w con Stat Cat Scan 11/09/24 12:[address] head/brain wo con Stat Cat Scan 11/09/24 12:34 Completed Pelvis XR 1-2 views [XR pelvis 1-2V] Stat Exams 11/09/24 12:35 Completed XR chest portable Stat Exams 11/09/24 12:35 Completed CK [Creatine Kinase] Stat Lab 11/09/24 13:10 Completed Complete Blood Count Auto Diff Stat Lab 11/09/24 13:10 Completed Comprehensive Metabolic Panel Stat Lab 11/09/24 13:10 Completed HCV RNA PCR, Quant Stat Lab 11/09/24 13:10 Received HIV Combo Stat Lab 11/09/24 13:10 Completed Hepatitis C Ab Qual. W/ RFX Stat Lab 11/09/24 13:10 Completed Lipase Stat Lab 11/09/24 13:10 Completed MAG [Magnesium] Stat Lab 11/09/24 13:10 Completed NT Pro Brain Natriuretic Pep. Stat Lab 11/09/24 13:10 Completed Troponin I Q3H Lab 11/09/24 15:52 Completed Troponin I Stat Lab 11/09/24 13:10 Completed Medical Decision Narrative: Of note I was notified by staff the patient is complaining of pain upon discharge, patient takes Percocet 5 mg p.o. at home, will give 5 mg p.o. Percocet and will give incentive spirometer for prophylaxis. Patient again will return emergency department with any worsening signs or symptoms. Patient and family voiced understand agree with current treatment plan/discharge plan. Patient to use oxygen as needed at home. I was consulted by the CLAUDIA, and we discussed the complexity of the problems being addressed. I approved the treatment and management plan for this patient's care in the Emergency Department, thus performing a substantive portion of the medical decision making. Timothy Hanley MD Critical Care <ESTEPHANIA Zelaya - Last Filed: 11/09/24 19:17> Critical Care Time Critical Care Time: No
[2024-11-09] MEDS: OXYCODONE 5MG W/APAP 325MG TABLET 1 EACH PO (19:20)
--- NOTE | 2024-11-09 19:27 | PC.NURSE ---
Pt given instructions for incentive spirometer by Respiratory therapy. Pt assisted to car in wheelchair by EDT
== END 2024-11-09 19:50 | disposition home or self-care (01) ==
PROVIDERS: Physician Assistant; Emergency Provider Emergency Medicine; PCP Nurse Practitioner Family
DX: M94.0 Chondrocostal junction syndrome [Tietze] (principal); W19.XXXA Unspecified fall, initial encounter
CPT/HCPCS: 70450; 71045; 71260; 72125; 72170; 74177; 80053; 82550; 83690; 83735; 83880; 84484; 85025; 86803; 87389; 87522; 93005; 96365; 96375; 99285; J1171; J3475; Q9967

== ENCOUNTER 2024-11-29 13:44 | Outpatient (CLI) | payer MEDICARE, MEDICAID, SELFPAY ==
[2024-11-29 13:51] LABS: Microscopic, Urine URINE MICROSCOPIC (MICROSCOPIC)
[2024-11-29 14:16] LABS: Appearance,Urine CLEAR (Clear); Bilirubin,Urine Negative (Negative); Blood, Urine Negative (Negative); Color,Urine YELLOW (Yellow); Glucose,Urine (UA) Negative (Negative); Ketones,Urine Negative (Negative); Leukocyte Esterase,Urine Negative (Negative); Nitrate,Urine Negative (Negative); Protein,Urine Negative (Negative); Urobilinogen,Urine 0.2 EU/dl (0.2)
[2024-11-29 14:35] LABS: Calcium Oxalate Crystals,Urine Trace /lpf
[2024-11-29 14:36] LABS: Amorphous Sediment,Urine 2+ /lpf; Bacteria,Urine Trace /lpf; RBC,Urine Occasional #/hpf (0-3)
[2024-11-29 14:37] LABS: Transitional Epi Cells,Urine OCC #/lpf (0-3)
== END 2024-11-29 23:59 | disposition home or self-care (01) ==
LOC: LAB 13:44
PROVIDERS: PCP Nurse Practitioner Family; Visit Provider Nurse Practitioner Family
DX: N39.0 Urinary tract infection, site not specified (principal); R39.9 Unspecified symptoms and signs involving the genitourinary system
CPT/HCPCS: 81001; 87086; 87186

== ENCOUNTER 2025-01-31 18:45 | Emergency (ER) | payer MEDICARE, MEDICAID, SELFPAY ==
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
--- OUTSIDE RECORDS SUMMARY | 2024-12-16 11:58 | XMS_ITS ---
Author Organization [facility] Address [address] [place] [address] Care Team Providers Care Tallier Name Role Phone Rl Arrington II Unavailable [phone] Luisa Hatch Unavailable Unavailable REASON FOR VISIT RX Prior Auth Oxycodone Encounters Encounter Location Date Provider Diagnosis [facility] [address] [place] [address] 12/16/2024 Rl Arrington PLAN OF TREATMENT Next Appt Details Provider Name:David Araujo ms, 02/14/2025 02:30:00 PM, [address], [address], [place], [address], Provider Name:Rl oliver, 03/15/2025 02:30:00 PM, [address], [address], [place], [address],
--- OUTSIDE RECORDS SUMMARY | 2024-12-20 13:21 | XMS_ITS ---
Author Organization [facility] Address [address] [place] [address] Care Team Providers Care Mattress Maker Name Role Phone Rl Arrington II Unavailable [phone] Luisa Hatch Unavailable Unavailable REASON FOR VISIT 12/20/2024 ERx MEDICATIONS Medication SIG (Take, Route, Frequency, Duration) Notes Start Date End Date Status OxyCODONE Hydrochloride 5 mg 1 tab(s) orally 3 times a day for 28 days DECEMBER 2024 RX, DO NOT FILL SOONER THAN 28 DAYS, (OK TO FILL EARLY, ONLY IF CLOSED) 12/20/2024 Active OxyCODONE Hydrochloride 5 mg 1 tab(s) orally 3 times a day for 28 days JANUARY 2025 RX, DO NOT FILL SOONER THAN 28 DAYS, (OK TO FILL EARLY, ONLY IF CLOSED) 12/20/2024 Active Encounters Encounter Location Date Provider Diagnosis [facility] [address] [place] [address] 12/20/2024 Rl Arrington Other retirement (current) drug therapy Z79.899 ASSESSMENTS Encounter Date Diagnosis Assessment Notes Treatment Notes Treatment Clinical Notes Section Notes 12/20/2024 Other buttermaker continuous churn (current) drug therapy (ICD-10 - Z79.899) PLAN OF TREATMENT Medication Medication Name Sig Start Date Stop Date Notes OxyCODONE Hydrochloride 5 mg 1 tab(s) orally 3 times a day for 28 days 12/20/2024 RX, DO NOT FILL SOONER THAN 28 DAYS, (OK TO FILL EARLY, ONLY IF CLOSED) OxyCODONE Hydrochloride 5 mg 1 tab(s) orally 3 times a day for 28 days 12/20/2024 RX, DO NOT FILL SOONER THAN 28 DAYS, (OK TO FILL EARLY, ONLY IF CLOSED) Next Appt Details Provider Name:David Araujo ms, 02/14/2025 02:30:00 PM, [address], [address], [place], [address], Provider Name:Rl oliver, 03/15/2025 02:30:00 PM, [address], [address], [place], [address],
--- OUTSIDE RECORDS SUMMARY | 2025-01-31 18:55 | XMS_ITS | Patient Health Record ---
Author Organization [facility] Address [address] [place] [address] Care Team Providers Care Mobile Sales Technician Name Role Phone Rl Arrington II Unavailable Luisa Hatch Unavailable Unavailable ALLERGIES No Known Allergies RESULTS Component Value Reference Range Notes Urine Test ANALYZER Reviewed date:04/07/2024 01:33:58 PM Interpretation:+OPI+OXY Performing Lab: Notes/Report: +OPI+OXY Heroin Metabolite (6AM) NEG Amphetamine (AMP) NEG Benzodiazepine (AL) NEG Buprenorphine NEG Cocaine (AKBAR) NEG Hydrocodone (HYD) NEG Methadone (MTD) NEG Opiate (OPI) POS Oxycodone (OXY) POS Urine Test ANALYZER Reviewed date:08/31/2024 12:18:17 PM Interpretation:+OXY Performing Lab: Notes/Report: +OXY Heroin Metabolite (6AM) NEG Amphetamine (AMP) NEG Benzodiazepine (AL) NEG Buprenorphine NEG Cocaine (AKBAR) NEG Hydrocodone (HYD) NEG Methadone (MTD) NEG Opiate (OPI) NEG Oxycodone (OXY) POS Urine Test ANALYZER Reviewed date:10/21/2024 03:23:27 PM Interpretation:-ALL NEG Performing Lab: Notes/Report: -ALL NEG Heroin Metabolite (6AM) NEG Amphetamine (AMP) NEG Benzodiazepine (AL) NEG Buprenorphine NEG Cocaine (AKBAR) NEG Hydrocodone (HYD) NEG Methadone (MTD) NEG Opiate (OPI) NEG Oxycodone (OXY) NEG Urine Test ANALYZER Reviewed date:12/20/2024 07:31:04 AM Interpretation:ALL NEG Performing Lab: Notes/Report: ALL NEG Heroin Metabolite (6AM) NEG Amphetamine (AMP) NEG Benzodiazepine (AL) NEG Buprenorphine NEG Cocaine (AKBAR) NEG Hydrocodone (HYD) NEG Methadone (MTD) NEG Opiate (OPI) NEG Oxycodone (OXY) NEG Urine Test LCMS Definitive Reviewed date:04/20/2024 06:16:06 AM Interpretation:+soma+oxy 2/3 Performing Lab: Notes/Report: +soma+oxy 2/3 Report Attached Urine Test ANALYZER Reviewed date:08/09/2024 08:26:39 AM Interpretation: Performing Lab: Notes/Report: Heroin Metabolite (6AM) Amphetamine (AMP) Benzodiazepine (AL) Buprenorphine Cocaine (AKBAR) Hydrocodone (HYD) Methadone (MTD) Opiate (OPI) Oxycodone (OXY) Urine Test ANALYZER Reviewed date:06/07/2024 03:32:43 PM Interpretation:+OXY+OPI Performing Lab: Notes/Report: +OXY+OPI Heroin Metabolite (6AM) NEG Amphetamine (AMP) NEG Benzodiazepine (AL) NEG Buprenorphine NEG Cocaine (AKBAR) NEG Hydrocodone (HYD) NEG Methadone (MTD) NEG Opiate (OPI) POS Oxycodone (OXY) POS Urine Test LCMS Definitive Reviewed date:11/17/2024 02:12:55 PM Interpretation:neg all Performing Lab: Notes/Report: neg all Report Attached Urine Test ANALYZER Reviewed date:02/04/2024 02:52:50 PM Interpretation:+OXY Performing Lab: Notes/Report: +OXY Heroin Metabolite (6AM) NEG Amphetamine (AMP) NEG Benzodiazepine (AL) NEG Buprenorphine NEG Cocaine (AKBAR) NEG Hydrocodone (HYD) NEG Methadone (MTD) NEG Opiate (OPI) NEG Oxycodone (OXY) POS REASON FOR REFERRAL No Information MEDICATIONS Medication SIG (Take, Route, Frequency, Duration) Notes Start Date End Date Status OxyCODONE Hydrochloride 5 mg 1 tab(s) orally 3 times a day for 28 days DECEMBER 2024 RX, DO NOT FILL SOONER THAN 28 DAYS, (OK TO FILL EARLY, ONLY IF CLOSED) 12/20/2024 Active Xarelto 20 mg 1 tab(s) orally once a day Active OxyCODONE Hydrochloride 5 mg 1 tab(s) orally 3 times a day for 28 days JANUARY 2025 RX, DO NOT FILL SOONER THAN 28 DAYS, (OK TO FILL EARLY, ONLY IF CLOSED) 12/20/2024 Active famotidine 20 mg 1 tab(s) orally 2 times a day Active spironolactone 25 mg 1 tab(s) orally [...] User Light cigarett e smoker ((1-9 cigs/day) PROBLEMS Problem Type ICD Code Onset Dates Problem Status W/U Status Risk SNOMED Code Notes Problem Pain in right knee (M25.561) Active confirmed Problem Other spondylosis with radiculopathy, lumbar region (M47.26) Active confirmed Lumbosacral spondylosis without myelopathy (83223279) Problem Spondylosis without myelopathy or radiculopathy, lumbar region (M47.816) Active confirmed Lumbosacral spondylosis without myelopathy (05306870) Problem Other advertiser (current) drug therapy (Z79.899) Active confirmed Long-term current use of drug therapy (661053610) Problem Low back pain, unspecified (M54.50) Active confirmed Low back pain (282038852) VITAL SIGNS Heart Rate 121 /min 10/21/2024 Blood pressure diastolic 97 mm Hg 10/21/2024 Oximetry 93 02/04/2024 Height 69 in 10/21/2024 Blood pressure systolic 172 mm Hg 10/21/2024 Weight 275 lbs 10/21/2024 BMI 40.61 kg/m2 10/21/2024 Encounters Encounter Location Date Provider Diagnosis [facility] [address] [place] [address] 02/04/2024 Rl Arrington Other advertiser (current) drug therapy Z79.899 [facility] [address] [place] [address] 02/04/2024 Rl Arrington Other advertiser (current) drug therapy Z79.899 ; Spondylosis without myelopathy or radiculopathy, lumbar region M47.816 ; Low back pain, unspecified M54.50 and Pain in right knee M25.561 [facility] [address] [place] [address] 04/05/2024 Rl Arrington Other advertiser (current) drug therapy Z79.899 ; Spondylosis without myelopathy or radiculopathy, lumbar region M47.816 ; Low back pain, unspecified M54.50 and Pain in right knee M25.561 [facility] [address] [place] [address] 04/07/2024 Rl Arrington Other advertiser (current) drug therapy Z79.899 ; Spondylosis without myelopathy or radiculopathy, lumbar region M47.816 ; Low back pain, unspecified M54.50 and Pain in right knee M25.561 [facility] [address] [place] [address] 04/07/2024 Rl Arrington Other fdc (current) drug therapy Z79.899 [facility] [address] [facility] [place] [address] 05/27/2024 Rl Arrington Other spondylosis with radiculopathy, lumbar region M47.26 [facility] [address] [place] [address] 06/07/2024 Rl Arrington Other advertiser (current) drug therapy Z79.899 ; Spondylosis without myelopathy or radiculopathy, lumbar region M47.816 ; Low back pain, unspecified M54.50 and Pain in right knee M25.561 [facility] [address] [place] [address] 06/07/2024 Rl Arrington Other advertiser (current) drug therapy Z79.899 [facility] [address] [place] [address] 06/17/2024 Rl Arrington Other spondylosis with radiculopathy, lumbar region M47.26 [facility] [address] [place] [address] 06/25/2024 Rl Arrington [facility] [address] [place] [address] 07/06/2024 Rl Arrington Other spondylosis with radiculopathy, lumbar region M47.26 [facility] [address] [place] [address] 07/26/2024 Rl Arrington [facility] [address] [place] [address] 07/30/2024 Rl Arrington Other advertiser (current) drug therapy Z79.899 ; Spondylosis without myelopathy or radiculopathy, lumbar region M47.816 ; Low back pain, unspecified M54.50 and Pain in right knee M25.561 [facility] [address] [place] [address] 07/30/2024 Rl Arrington Other advertiser (current) drug therapy Z79.899 [facility] [address] [place] [address] 08/05/2024 Rl Arrington Other spondylosis with radiculopathy, lumbar region M47.26 [facility] [address] [place] [address] 08/26/2024 Rl Arrington Other advertiser (current) drug therapy Z79.899 ; Spondylosis without myelopathy or radiculopathy, lumbar region M47.816 ; Low back pain, unspecified M54.50 and Pain in right knee M25.561 [facility] [address] [place] [address] 08/26/2024 Rl Arrington Other fdc (current) drug therapy Z79.899 [facility] [address] [place] [address] 10/21/2024 Rl Arrington Other advertiser (current) drug therapy Z79.899 ; Spondylosis without myelopathy or radiculopathy, lumbar region M47.816 ; Low back pain, unspecified M54.50 and Pain in right knee M25.561 [facility] [address] [place] [address] 10/21/2024 Rl Arrington Other advertiser (current) drug therapy Z79.899 [facility] [address] [place] [address] 11/22/2024 Rl Arrington [facility] [address] [place] [address] 12/16/2024 Rl Arrington Other fdc (current) drug therapy Z79.899 ; Spondylosis without myelopathy or radiculopathy, lumbar region M47.816 ; Low back pain, unspecified M54.50 and Pain in right knee M25.561 [facility] [address] [place] [address] 12/16/2024 Rl Arrington [facility] [address] [place] [address] 12/20/2024 Rl Arrington Other advertiser (current) drug therapy Z79.899 ASSESSMENTS Encounter Date Diagnosis Assessment Notes Treatment Notes Treatment Clinical Notes Section Notes 02/04/2024 Spondylosis without myelopathy or radiculopathy, lumbar region (ICD-10 - M47.816) 02/04/24 Mr. Burgos is here today for an office visit and medication refill. He reports that his current medication keeps his pain down to a manageable level. 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 Patient with continous lower back pain. Patient requesting to have a L-spine MRI but refuses to participate in physical therapy. Discussed injection therapy with him and states that he not interested in injections. Encouraged HEP at home. 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 We will continue the oxycodone 5 mg twice daily. He denies adverse side effect of the medication. Ashish and UDS were reviewed. Opioid risk assessment is high. Refill and Follow up in 2 months. 02/04/2024 Other fdc (current) drug therapy (ICD-10 - Z79.899) 02/04/24 1. Refill Oxycodone 5mg BID 2. Encourage HEP 3. Consider PT for L-spine pain 4. F/U 2 months 02/04/24 Mr. Burgos is here today for an office visit and medication refill. He reports that his current medication keeps his pain down to a manageable level. 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 Patient with continous lower back pain. Patient requesting to have a L-spine MRI but refuses to participate in physical therapy. Discussed injection therapy with him and states that he not interested in injections. Encouraged HEP at home. 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 We will continue the oxycodone 5 mg twice daily. He denies adverse side effect of the medication. Ashish and UDS were reviewed. Opioid risk assessment is high. Refill and Follow up in 2 months. 04/05/2024 Other fdc (current) drug therapy (ICD-10 - Z79.899) 02/04/24 1. Refill Oxycodone 5mg BID 2. Encourage HEP 3. Consider PT for L-spine pain 4. F/U 2 months 02/04/24 Mr. Burgos is here today for an office visit and medication refill. He reports that his current medication keeps his pain down to a manageable level. 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 Patient with continous lower back pain. Patient requesting to have a L-spine MRI but refuses to participate in physical therapy. Discussed injection therapy with him and states that he not interested in injections. Encouraged HEP at home. 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 We will continue the oxycodone 5 mg twice daily. He denies adverse side effect of the medication. Ashish and UDS were reviewed. Opioid risk assessment is high. Refill and Follow up in 2 months. 04/07/2024 Other fdc (current) drug therapy (ICD-10 - Z79.899) 05/27/2024 Other spondylosis with radiculopathy, lumbar region (ICD-10 - M47.26) 06/07/2024 Spondylosis without myelopathy or radiculopathy, lumbar region (ICD-10 - M47.816) 06/07/2024 Mr. Burgos is here today for an office visit and medication refill. He reports he has been having some increasing problems with the low back pain right hip and thigh pain. He has no lumbar spondylosis along with adjacent segment issues. He has been very apprehensive about any injection therapy but he states increasingly the pain is limiting his tolerance of daily activity. He had to cancel his injections and would like to get this reschedule. We will schedule fidencio LMBB L34 and S1. Medication haque we continue with the oxycodone 5 mg 1 p.o. twice daily. He denies any side effect of the medication. Ashish and UDS were reviewed. Opioid risk assessment is high. F/u 2 months. 06/07/2024 Other fdc (current) drug therapy (ICD-10 - Z79.899) 06/07/2024 1. Refill Oxycodone 5mg BID 2. Continue HEP 3. #1 and #2 LMBB FIDENCIO L3, L4, S1 4. F/U 2 months 06/07/2024 Mr. Burgos is here today for an office visit and medication refill. He reports he has been having some increasing problems with the low back pain right hip and thigh pain. He has no lumbar spondylosis along with adjacent segment issues. He has been very apprehensive about any injection therapy but he states increasingly the pain is limiting his tolerance of daily activity. He had to cancel his injections and would like to get this reschedule. We will schedule fidencio LMBB L34 and S1. Medication haque we continue with the oxycodone 5 mg 1 p.o. twice daily. He denies any side effect of the medication. Ashish and UDS were reviewed. Opioid risk assessment is high. F/u 2 months. 06/17/2024 Other spondylosis with radiculopathy, lumbar region (ICD-10 - M47.26) 07/06/2024 Other spondylosis with radiculopathy, lumbar region (ICD-10 - M47.26) 08/05/2024 Other spondylosis with radiculopathy, lumbar region (ICD-10 - M47.26) 12/20/2024 Other advertiser (current) drug therapy (ICD-10 - Z79.899) 02/04/2024 Other fdc (current) drug therapy (ICD-10 - Z79.899) 08/26/2024 Spondylosis without myelopathy or radiculopathy, lumbar region [...] recent lumbar MBB at the same levels. 08/26/2024 Here today for follow up and medication refills. Patient reports axial low back pain, rates his pain 6/10 scale. Describes his pain as constant aching and burning. He is status post RFA FIDENCIO L3, L4, L5 on 08/05/2024 providing him with 80% pain relief ongoing as of 08/26/2024. Patient reports improved mobility and being able to function with everyday ADL's without pain interfering. Will continue current regimen. Patient reports no side effects with medication regimen. He will need to continue HEP. Most recent Ashish and UDS were reviewed. Schedule to follow up in two months. 08/26/2024 Other advertiser (current) drug therapy (ICD-10 - Z79.899) 08/26/2024 1. Refill Oxycodone 5mg BID 2. Continue HEP 3. S/P RFA FIDENCIO L3, L4, L5 4. F/U 2 months Mr. Burgos is here [...] recent lumbar MBB at the same levels. 08/26/2024 Here today for follow up and medication refills. Patient reports axial low back pain, rates his pain 6/10 scale. Describes his pain as constant aching and burning. He is status post RFA FIDENCIO L3, L4, L5 on 08/05/2024 providing him with 80% pain relief ongoing as of 08/26/2024. Patient reports improved mobility and being able to function with everyday ADL's without pain interfering. Will continue current regimen. Patient reports no side effects with medication regimen. He will need to continue HEP. Most recent Ashish and UDS were reviewed. Schedule to follow up in two months. 07/30/2024 Other fdc (current) drug therapy (ICD-10 - Z79.899) 07/30/2024 Spondylosis without myelopathy or radiculopathy, lumbar region (ICD-10 - M47.816) 06/07/2024 Mr. Burgos is here today for an office visit and medication refill. He reports he has been having some increasing problems with the low back pain right hip and thigh pain. He has no lumbar spondylosis along with adjacent segment issues. He has been very apprehensive about any injection therapy but he states increasingly the pain is limiting his tolerance of daily activity. He had to cancel his injections and would like to get this reschedule. We will schedule fidencio LMBB L34 and S1. Medication haque we continue with the oxycodone 5 mg 1 p.o. twice daily. He denies any side effect of the medication. Ashish and UDS were reviewed. Opioid risk assessment is high. F/u 2 months. [id number] - Patient reports significant pain and functional benefit [...] recent lumbar MBB at the same levels. 07/30/2024 Other fdc (current) drug therapy (ICD-10 - Z79.899) 07/30/2024 1. Refill Oxycodone 5mg BID 2. Continue HEP 3. Rfa scheduled 4. F/U 2 months 06/07/2024 Mr. Burgos is here today for an office visit and medication refill. He reports he has been having some increasing problems with the low back pain right hip and thigh pain. He has no lumbar spondylosis along with adjacent segment issues. He has been very apprehensive about any injection therapy but he states increasingly the pain is limiting his tolerance of daily activity. He had to cancel his injections and would like to get this reschedule. We will schedule fidencio LMBB L34 and S1. Medication haque we continue with the oxycodone 5 mg 1 p.o. twice daily. He denies any side effect of the medication. Ashish and UDS were reviewed. Opioid risk assessment is high. F/u 2 months. [id number] - Patient reports significant pain and functional benefit [...] recent lumbar MBB at the same levels. 06/07/2024 Other fdc (current) drug therapy (ICD-10 - Z79.899) 12/16/2024 Other fdc (current) drug therapy (ICD-10 - Z79.899) 10/21/2024 [...] Schedule to follow up in two months. 10/21/2024 Other advertiser (current) drug therapy (ICD-10 - Z79.899) 10/21/2024 Spondylosis without myelopathy or radiculopathy, lumbar region [...] Schedule to follow up in two months. 10/21/2024 Other advertiser (current) drug therapy (ICD-10 - Z79.899) 10/21/2024 [...] Schedule to follow up in two months. 08/26/2024 Other advertiser (current) drug therapy (ICD-10 - Z79.899) 04/07/2024 Spondylosis without myelopathy or radiculopathy, lumbar region [...] pain is limiting his tolerance of daily activity. I reviewed the medial branch blocks in his case this would be at L3-4 and S1. I suspect this would provide significant benefit to him. Should that be the case we could follow with RFA and potentially get him some longer-term relief. Risks and benefits were reviewed and he will tentatively get that set up. Medication haque we continue with the oxycodone 5 mg 1 p.o. twice daily. He denies any side effect of the medication. Ashish and UDS were reviewed. Opioid risk assessment is high. 04/07/2024 Other fdc (current) drug therapy (ICD-10 - Z79.899) 04/07/2024 1. Refill Oxycodone 5mg BID 2. Continue HEP 3. #1 and #2 LMBB FIDENCIO L3, L4, S1 4. F/U 2 months Mr. Burgos is here [...] pain is limiting his tolerance of daily activity. I reviewed the medial branch blocks in his case this would be at L3-4 and S1. I suspect this would provide significant benefit to him. Should that be the case we could follow with RFA and potentially get him some longer-term relief. Risks and benefits were reviewed and he will tentatively get that set up. Medication haque we continue with the oxycodone 5 mg 1 p.o. twice daily. He denies any side effect of the medication. Ashish and UDS were reviewed. Opioid risk assessment is high. 04/07/2024 Low back pain, unspecified (ICD-10 - M54.50) [...] pain is limiting his tolerance of daily activity. I reviewed the medial branch blocks in his case this would be at L3-4 and S1. I suspect this would provide significant benefit to him. Should that be the case we could follow with RFA and potentially get him some longer-term relief. Risks and benefits were reviewed and he will tentatively get that set up. Medication haque we continue with the oxycodone 5 mg 1 p.o. twice daily. He denies any side effect of the medication. Ashish and UDS were reviewed. Opioid risk assessment is high. 12/16/2024 Spondylosis without myelopathy or radiculopathy, lumbar [...] Schedule to follow up in two months. 10/21/2024 Low back pain, unspecified (ICD-10 - M54.50) [...] Schedule to follow up in two months. 07/30/2024 Low back pain, unspecified (ICD-10 - M54.50) 06/07/2024 Mr. Burgos is here today for an office visit and medication refill. He reports he has been having some increasing problems with the low back pain right hip and thigh pain. He has no lumbar spondylosis along with adjacent segment issues. He has been very apprehensive about any injection therapy but he states increasingly the pain is limiting his tolerance of daily activity. He had to cancel his injections and would like to get this reschedule. We will schedule fidencio LMBB L34 and S1. Medication haque we continue with the oxycodone 5 mg 1 p.o. twice daily. He denies any side effect of the medication. Ashish and UDS were reviewed. Opioid risk assessment is high. F/u 2 months. [id number] - Patient reports significant pain and functional benefit [...] recent lumbar MBB at the same levels. 08/26/2024 Low back pain, unspecified (ICD-10 - M54.50) [...] recent lumbar MBB at the same levels. 08/26/2024 Here today for follow up and medication refills. Patient reports axial low back pain, rates his pain 6/10 scale. Describes his pain as constant aching and burning. He is status post RFA FIDENCIO L3, L4, L5 on 08/05/2024 providing him with 80% pain relief ongoing as of 08/26/2024. Patient reports improved mobility and being able to function with everyday ADL's without pain interfering. Will continue current regimen. Patient reports no side effects with medication regimen. He will need to continue HEP. Most recent Ashish and UDS were reviewed. Schedule to follow up in two months. 06/07/2024 Low back pain, unspecified (ICD-10 - M54.50) 06/07/2024 Mr. Burgos is here today for an office visit and medication refill. He reports he has been having some increasing problems with the low back pain right hip and thigh pain. He has no lumbar spondylosis along with adjacent segment issues. He has been very apprehensive about any injection therapy but he states increasingly the pain is limiting his tolerance of daily activity. He had to cancel his injections and would like to get this reschedule. We will schedule fidencio LMBB L34 and S1. Medication haque we continue with the oxycodone 5 mg 1 p.o. twice daily. He denies any side effect of the medication. Ashish and UDS were reviewed. Opioid risk assessment is high. F/u 2 months. 04/05/2024 Spondylosis without myelopathy or radiculopathy, lumbar region (ICD-10 - M47.816) 02/04/24 Mr. Burgos is here today for an office visit and medication refill. He reports that his current medication keeps his pain down to a manageable level. 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 Patient with continous lower back pain. Patient requesting to have a L-spine MRI but refuses to participate in physical therapy. Discussed injection therapy with him and states that he not interested in injections. Encouraged HEP at home. 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 We will continue the oxycodone 5 mg twice daily. He denies adverse side effect of the medication. Ashish and UDS were reviewed. Opioid risk assessment is high. Refill and Follow up in 2 months. 02/04/2024 Low back pain, unspecified (ICD-10 - M54.50) 02/04/24 Mr. Burgos is here today for an office visit and medication refill. He reports that his current medication keeps his pain down to a manageable level. 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 Patient with continous lower back pain. Patient requesting to have a L-spine MRI but refuses to participate in physical therapy. Discussed injection therapy with him and states that he not interested in injections. Encouraged HEP at home. 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 We will continue the oxycodone 5 mg twice daily. He denies adverse side effect of the medication. Ashish and UDS were reviewed. Opioid risk assessment is high. Refill and Follow up in 2 months. 02/04/2024 Pain in right knee (ICD-10 - M25.561) 02/04/24 Mr. Burgos is here today for an office visit and medication refill. He reports that his current medication keeps his pain down to a manageable level. 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 Patient with continous lower back pain. Patient requesting to have a L-spine MRI but refuses to participate in physical therapy. Discussed injection therapy with him and states that he not interested in injections. Encouraged HEP at home. 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 We will continue the oxycodone 5 mg twice daily. He denies adverse side effect of the medication. Ashish and UDS were reviewed. Opioid risk assessment is high. Refill and Follow up in 2 months. 04/05/2024 Low back pain, unspecified (ICD-10 - M54.50) 02/04/24 Mr. Burgos is here today for an office visit and medication refill. He reports that his current medication keeps his pain down to a manageable level. 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 Patient with continous lower back pain. Patient requesting to have a L-spine MRI but refuses to participate in physical therapy. Discussed injection therapy with him and states that he not interested in injections. Encouraged HEP at home. 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 We will continue the oxycodone 5 mg twice daily. He denies adverse side effect of the medication. Ashish and UDS were reviewed. Opioid risk assessment is high. Refill and Follow up in 2 months. 06/07/2024 Pain in right knee (ICD-10 - M25.561) 06/07/2024 Mr. Burgos is here today for an office visit and medication refill. He reports he has been having some increasing problems with the low back pain right hip and thigh pain. He has no lumbar spondylosis along with adjacent segment issues. He has been very apprehensive about any injection therapy but he states increasingly the pain is limiting his tolerance of daily activity. He had to cancel his injections and would like to get this reschedule. We will schedule fidencio LMBB L34 and S1. Medication haque we continue with the oxycodone 5 mg 1 p.o. twice daily. He denies any side effect of the medication. Ashish and UDS were reviewed. Opioid risk assessment is high. F/u 2 months. 08/26/2024 Pain in right knee (ICD-10 - M25.561) [...] recent lumbar MBB at the same levels. 08/26/2024 Here today for follow up and medication refills. Patient reports axial low back pain, rates his pain 6/10 scale. Describes his pain as constant aching and burning. He is status post RFA FIDENCIO L3, L4, L5 on 08/05/2024 providing him with 80% pain relief ongoing as of 08/26/2024. Patient reports improved mobility and being able to function with everyday ADL's without pain interfering. Will continue current regimen. Patient reports no side effects with medication regimen. He will need to continue HEP. Most recent Ashish and UDS were reviewed. Schedule to follow up in two months. 07/30/2024 Pain in right knee (ICD-10 - M25.561) 06/07/2024 Mr. Burgos is here today for an office visit and medication refill. He reports he has been having some increasing problems with the low back pain right hip and thigh pain. He has no lumbar spondylosis along with adjacent segment issues. He has been very apprehensive about any injection therapy but he states increasingly the pain is limiting his tolerance of daily activity. He had to cancel his injections and would like to get this reschedule. We will schedule fidencio LMBB L34 and S1. Medication haque we continue with the oxycodone 5 mg 1 p.o. twice daily. He denies any side effect of the medication. Ashish and UDS were reviewed. Opioid risk assessment is high. F/u 2 months. [id number] - Patient reports significant pain and functional benefit [...] lumbar MBB at the same levels. 10/21/2024 Pain in right knee (ICD-10 - M25.561) [...] Schedule to follow up in two months. 04/07/2024 Pain in right knee (ICD-10 - M25.561) [...] pain is limiting his tolerance of daily activity. I reviewed the medial branch blocks in his case this would be at L3-4 and S1. I suspect this would provide significant benefit to him. Should that be the case we could follow with RFA and potentially get him some longer-term relief. Risks and benefits were reviewed and he will tentatively get that set up. Medication haque we continue with the oxycodone 5 mg 1 p.o. twice daily. He denies any side effect of the medication. Ashish and UDS were reviewed. Opioid risk assessment is high. 12/16/2024 Pain in right knee (ICD-10 - [...] Schedule to follow up in two months. 04/05/2024 Pain in right knee (ICD-10 - M25.561) 02/04/24 Mr. Burgos is here today for an office visit and medication refill. He reports that his current medication keeps his pain down to a manageable level. 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 Patient with continous lower back pain. Patient requesting to have a L-spine MRI but refuses to participate in physical therapy. Discussed injection therapy with him and states that he not interested in injections. Encouraged HEP at home. 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 We will continue the oxycodone 5 mg twice daily. He denies adverse side effect of the medication. Ashish and UDS were reviewed. Opioid risk assessment is high. Refill and Follow up in 2 months. PLAN OF TREATMENT Pending Test Test Name Order Date Urine Test ANALYZER 05/28/2022 Urine Test ANALYZER 06/27/2022 Urine Test ANALYZER 04/05/2024 Urine Test ANALYZER 08/14/2022 Next Appt Details Provider Name:David Araujo ms, 02/14/2025 02:30:00 PM, [address], [address], [place], [address], Provider Name:Rl Longoria Hakeemjanice melody, 03/15/2025 02:30:00 PM, [address], [address], [place], [address], Insurance Providers Payer Name Payer Address Payer Phone Subscriber Number Group Number Insured Name Patient Relationship to Insured Coverage Start Date Coverage End Date [employer] [address] [place] [phone] [id number] AubreyFransisco Self - patient is the insured 4 [place] [address] [place] [address] [id number] AubreyFransisco Self - patient is the insured 0 MEDICAL (GENERAL) HISTORY Medical History History ICD Code Anxiety diagnosed 2021, managed by Enrrique Lewis A-FIB diagnosed 2021, managed by Luisa Lewis COPD diagnosed 2021, managed by Luisa gray CVA diagnosed 2021, managed by Luisa tomas edema diagnosed 2021, managed by Luisa Lewis Surgical History Surgery Date(Month/Year) knee replacement [address] Ridley 1 d ay stay 2001 left leg unknown [facility] ([facility]) 1975 hernia repair at [facility] OP) 20 14 cholecystectomy at [facility] (OP) [address] Ridley in [facility] 1999
[2025-01-31 18:56] VITALS: BP 114/76; PULSE 84; RESP 18; TEMP 36.5; O2SAT 94; BMI 38.0
[2025-01-31 19:00] VITALS: BP 127/71; PULSE 88; O2SAT 93
[2025-01-31 19:09] VITALS: BP 108/63; PULSE 67; O2SAT 94
--- NOTE | 2025-01-31 19:13 | PC.NURSE ---
ED provider at the bedside at this time.
--- NOTE | 2025-01-31 19:14 | CT_ITS ---
PROCEDURE INFORMATION: Exam: CT Abdomen And Pelvis With Contrast Exam date and time: 01/31/2025 8:12 PM Age: 64 years old Clinical indication: Abdominal pain; Additional info: R sided abd pain, vomiting diarrhea TECHNIQUE: Imaging protocol: Computed tomography of the abdomen and pelvis with contrast. Total images: 334 Radiation optimization: All CT scans at this facility use at least one of these dose optimization techniques: automated exposure control; mA and/or kV adjustment per patient size (includes targeted exams where dose is matched to clinical indication); or iterative reconstruction. Contrast material: ISOVUE; Contrast volume: 75 ml; Contrast route: IV; COMPARISON: CT ABDOMEN PELVIS W CON 11/09/2024 1:57 PM FINDINGS: Lungs: Lung bases are clear. Heart: Normal heart size. Coronary arteries: Coronary artery calcifications. Esophagus: Small distal paraesophageal, short gastric, mesenteric, and omental varices. Diaphragm: Small hiatal hernia. Liver: Advanced liver cirrhosis. Scattered subcentimeter foci of parenchymal enhancement within the liver of undetermined etiology or clinical significance. Gallbladder and biliary ducts: Status post cholecystectomy. No biliary ductal dilatation. Pancreas: Normal. No ductal dilation. Spleen: Normal. No splenomegaly. Adrenal glands: Normal. No mass. Kidneys and ureters: Bilateral nephrolithiasis. No hydronephrosis. Mid lower pole left renal cortical scarring. Small right renal peripelvic cysts. No ureteral stones. Stomach and bowel: Unremarkable stomach and duodenum. No ileus or bowel obstruction. Unremarkable small bowel. Unremarkable terminal ileum. Unremarkable colon and rectum. Appendix: Normal appendix. Intraperitoneal space: Unremarkable. No free air. No significant fluid collection. Vasculature: Atherosclerotic abdominal aorta without aneurysm. Lymph nodes: Unremarkable. No enlarged lymph nodes. Urinary bladder: Partially collapsed bladder with moderate circumferential wall thickening. Reproductive: Moderate prostatomegaly. Bones/joints: Osseous demineralization. Severe multilevel degenerative changes of the thoracolumbar spine. Status post posterior lumbar fusion L3 through L5 with partial laminectomy defects. Mild degenerative changes bilateral hips and SI joints. Mild rotary lumbar levocurvature. Soft tissues: Chronic retained metallic foreign body in the left inferolateral chest wall. Tiny fat containing umbilical hernia. Additional small fat containing midline upper abdominal wall hernias. IMPRESSION: 1. Advanced liver cirrhosis. 2. Scattered subcentimeter foci of parenchymal enhancement within the liver of undetermined etiology or significance. Consider follow-up nonemergent liver MRI. 3. Bilateral nephrolithiasis. No obstructive uropathy. 4. Moderate prostatomegaly. 5. Bladder wall thickening from incomplete distension versus cystitis or chronic outlet obstruction. 6. Fat containing anterior abdominal wall hernias. 7. Multiple additional chronic and incidental findings.
[2025-01-31] MEDS: KETOROLAC 30MG/ML VIAL 15 MG IV (19:25)
[2025-01-31] MEDS: LACTATED RINGERS 1000ML 1,000 ML 999 ML IV (19:25)
[2025-01-31] MEDS: ONDANSETRON 4MG/2ML VIAL 4 MG IV (19:25)
[2025-01-31 19:32] LABS: Basophils % 0.5 % (0.1-2.0); Eosinophils # 0.2 Kmm3 (0.0-0.4); Eosinophils % 2.7 % (0.1-12.0); Hematocrit 48.6 % (42.0-52.0); Hemoglobin 16.1 g/dL (14.1-18.0); Immature Granulocytes # 0.03 10^3uL; Immature Granulocytes % 0.4 %; Lymphocytes # 1.3 K/mm3 (0.7-4.5); Lymphocytes % 16.6 % (10-50); Mean Corpuscular HGB Conc 33.1 g/dL (31.8-35.4); Mean Corpuscular Hemoglobin 32.8 pg (27.0-31.2); Mean Platelet Volume 11.3 fl (7.4-10.4); Monocytes # 0.7 K/mm3 (0.1-1.0); Monocytes % 8.2 % (1.7-9.3); Neutrophils # 5.7 K/mm3 (1.8-7.8); Neutrophils % 71.6 % (37.0-80.0); Nucleated Red Blood Cells # 0 10^3/uL; Nucleated Red Blood Cells % 0 %; Platelet Count 168 K/mm3 (142-424); Red Blood Count 4.91 M/mm3 (4.60-6.20); Red Cell Distribution Width 11.8 % (11.5-17.5); Red Cell Distribution Width-SD 42.8 fL
[2025-01-31 19:45] LABS: Albumin Level 3.9 g/dl (3.5-5.0); Chloride 106 mmol/L (98-107); Potassium 3.9 mmoL/L (3.5-5.1); Sodium 138 mmol/L (136-145)
[2025-01-31 19:47] LABS: Alanine Aminotransferase 27 U/L (12-78); Anion Gap 8.9 mEq/L (5-15); Aspartate Amino Transferase 38 U/L (17-59); Blood Urea Nitrogen 12 mg/dl (9-20); Carbon Dioxide 27 mmol/L (22.0-30.0); Creatinine Clearance Estimated 124 mL/min (50-200); Estimated Glomerular Filt Rate 97 ml/min (>60); GFR (African American) 117 ML/MIN (>60)
[2025-01-31 19:48] LABS: Activated Partial Thrombo Time 30.8 seconds (22.8-30.6); Albumin/Globulin Ratio 1.3 (1.1-1.8); Alkaline Phosphatase 71 U/L (38-126); Bilirubin,Total 0.9 mg/dl (0.2-1.3); Glucose 101 mg/dl (74-100); Magnesium 1.9 mg/dl (1.6-2.3); Total Protein,Serum 6.9 g/dl (6.3-8.2)
--- NOTE | 2025-01-31 19:53 | ED_ITS ---
Discharge Plan Disposition Patient Disposition: Home, Self-Care Prescriptions Prescriptions: New ondansetron 4 mg tablet,disintegrating 4 mg PO Q6H PRN (Reason: nausea and vomiting) Qty: 10 0RF No Action oxycodone 5 mg tablet 5 mg PO NEEDED PRN (Reason: Pain) diclofenac sodium [Voltaren Arthritis Pain] 1 % gel 2 g topical QID Qty: 100 2RF Rx Instructions: apply to single elbow, wrist or hand; for hand includes palm/fingers/back of hand meloxicam 15 mg tablet 15 mg PO DAILY pantoprazole 20 mg tablet,delayed release (DR/EC) 20 mg PO DAILY Qty: 90 2RF potassium chloride 10 mEq capsule, extended release 10 meq PO DAILY Qty: 30 0RF tizanidine 4 mg tablet 4 mg PO DAILY Qty: 30 0RF docusate sodium [Dulcolax Stool Softener (dss)] 100 mg capsule 100 mg PO DAILY Qty: 30 0RF Xarelto 10 mg tablet See Rx Instructions .ROUTE .COMPLEX Qty: 30 3RF Dose Instruction: TAKE 1 TABLET BY MOUTH ONCE A DAY FOF DVT Rx Instructions: TAKE 1 TABLET BY MOUTH ONCE A DAY FOF DVT tadalafil [Cialis] 5 mg tablet 5 mg PO DAILY Qty: 30 0RF tamsulosin [Flomax] 0.4 mg capsule 0.4 mg PO DAILY Qty: 30 0RF furosemide 20 mg tablet See Rx Instructions .ROUTE .COMPLEX Qty: 30 2RF Dose Instruction: TAKE 1/2 TABLET BY MOUTH ONCE A DAY FOR FLUID RETENTION Rx Instructions: TAKE 1/2 TABLET BY MOUTH ONCE A DAY FOR FLUID RETENTION guaifenesin [Mucinex] 600 mg tablet extended release 12hr 600 mg PO BID PRN (Reason: cough) Qty: 14 0RF albuterol sulfate 90 mcg/actuation HFA aerosol inhaler 2 inh inhalation Q4H PRN (Reason: shortness of breath or wheezing) Qty: 6.7 0RF Referrals Follow up/Referrals: Shailesh Mchugh APRN [Primary Care Provider, Family Practice] - See instructions Activity Restrictions/Add. Instructions Additional Instructions/Restrictions: Call your family doctor to establish care for this visit to the emergency department and schedule follow-up within 48 hours to ensure improvement. If you have any worsening of your condition or any other concerning signs or symptoms, return to the emergency department or your primary care doctor for further evaluation. Take Tylenol 1000 mg every 6 hours (4 times daily) and ibuprofen 400 mg every 6 hours (4 times daily) as needed with food and water to prevent GI upset and kidney damage. Clinical Impressions Clinical Impression: Abdominal pain Instructions Patient Instructions: DI for Diarrhea and Traveler's Diarrhea -- Adult, DI for Diarrhea and Traveler's Diarrhea -- Child, DI for Nausea -- Adult, DI for Nausea -- Child Print Language Print Language: Niuean Discharge ED Provider: Timothy Hanley General Adult HPI General Chief complaint: Nausea/Vomiting/Diarrhea Stated complaint: bloody stools,Vomiting,[place] Time Seen by Provider: 01/31/25 18:49 Mode of Arrival: Wheelchair Source of Information: Patient Description of Symptoms (Recalled from ER Triage Doc. by RN): Patient states for about the last 3 days he has had diarrhea, lower back pain and blood in his stool. Thinks he may have had a virus and a hemorrhoid, or possibly a kidney stone. Patient states he has had several kidney stones lately. History of Present Illness HPI narrative: Please note that above description of symptoms, in this electronic medical record under categorization of recalled from ER triage doctor by RN are reflective of an initial nursing assessment, however, is not reflective of my full history and physical exam that was personally taken and clarified. Consequentially, this preceding description of symptoms, which may include the patient's categorized chief complaint in the EMR, do not reflect my personal clinical impression, and the ultimate description of history of present illness and patient stated complaints should be deferred to this section of the note. Unless stated otherwise or congruent with this section of the note, additional signs, symptoms, or incongruence should be interpreted as inaccurate with my clinical impression. Related Data Home Medications ?Medication ?Instructions ?Recorded ?Confirmed oxycodone 5 mg tablet 5 mg PO NEEDED PRN Pain 0 09/11/23 01/04/25 meloxicam 15 mg tablet 15 mg PO DAILY 01/04/2512/17 Previous Rx's ?Medication ?Instructions ?Recorded albuterol sulfate 90 mcg/actuation 2 inh inhalation Q4 H PRN shortness 01/14/24 aerosol inhaler of breath or wheezing #6.7 g dilip diclofenac sodium 1 % topical gel 2 g topical QID #100 grams 07/07/24 (Voltaren Arthritis Pain) pantoprazole 20 mg tablet,delayed 20 mg PO DAILY #90 t abs 10/26/24 release guaifenesin 600 mg tablet, 600 mg PO BID PRN cough #14 tabs 11/09/24 extended release 12 hr (Mucinex) potassium chloride 10 mEq 10 meq PO DAILY #30 caps 11/09 capsule,extended release tizanidine 4 mg tablet 4 mg PO DAILY #30 tabs 11/18 docusate sodium 100 mg capsule 100 mg PO DAILY #30 cap s 12/01/24 (Dulcolax Stool Softener (docusate)) rivaroxaban 10 mg tablet (Xarelto) See Rx Instructions .Route 12/20/24 .COMPLEX #30 tabs tadalafil 5 mg tablet (Cialis) 5 mg PO DAILY #30 tabs 12/21/24 tamsulosin 0.4 mg capsule (Flomax) 0.4 mg PO DAILY #30 caps 12/21/24 furosemide 20 mg tablet See Rx Instructions .Route 0 01/11/25 .COMPLEX #30 tabs ondansetron 4 mg disintegrating 4 mg PO Q6H PRN nausea and 01/31/25 tablet vomiting #10 tabs Allergies Allergy/AdvReac Type Severity Reaction Status Date / Time gabapentin (From Neurontin) AdvReac Mild Unknown Verified 01/31/25 19:00 allergy reaction [facility] Disclaimer: The information contained in this section may have been updated after the patient was seen, as this information can be updated by other users. 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 History of stroke Surgical History History of back surgery History of knee replacement Family History Other Cancer Diabetes Social History Smoking Status: Current every day smoker years smoked: 50 quit status: has quit before alcohol intake: current alcohol intake frequency: holidays/special occasions only substance use type: denies use current occupational status: retired Travel in the last 8 weeks?: None housing: house marital status: life partner education level: high school Have you lived/traveled outside [place] in past 30 days?: No Contact w/someone who lives/traveled outside [place] past 30 days?: No Exposure to someone with infectious disease in past 14 days?: No Do you have a fever (greater than 100.4 F or 38 C)?: No Have you tested positive for COVID-19?: No Exposed to someone with COVID-19 in past 14 days?: No Do you have a sore throat?: No Do you have a cough?: No Do you have any weakness?: No Do you have any diarrhea?: No Are you experiencing any unusual bleeding?: No Do you have any muscle aches/pain?: No Do you have any abdominal pain?: No Are you experiencing loss of taste or smell?: No Other Medical History Have you received the Pneumonia Vaccine: Yes ROS Obtained: Yes All systems reviewed & no additional complaints except as documented Physical Exam General General appearance: alert and in no apparent distress Head Head exam: atraumatic and normocephalic Eye Eye exam: Present normal appearance, PERRL and EOMI Neck Neck exam: Present normal inspection, full ROM and trachea midline Respiratory Respiratory exam: Present normal lung sounds bilaterally; Absent respiratory distress, wheezes, stridor, accessory muscle use or prolonged expiratory phase Cardiovascular Cardiovascular exam: Present regular rate, normal rhythm and other (Pulses equal symmetric in upper and lower extremities) Abdominal Exam Abdominal exam: Present soft and tenderness; Absent distention, guarding, rebound, rigidity or pulsatile mass Abdominal tenderness: Present RLQ, epigastrium and mild Extremities Exam Extremities exam: Absent edema Back Exam Back exam: Present CVA tenderness (R); Absent CVA tenderness (L) Neurological Exam Neurological exam: Present alert, oriented X3 and CN II-XII intact; Absent motor sensory deficit Skin Skin exam: Present warm and dry; Absent diaphoresis or erythema Medical Decision Making Medical Records Medical records reviewed: Yes I reviewed the patient's medical records. Screening: Per USPSTF and CDC recommendations, given the prevalence of disease in our region, it is our hospital?s policy to screen for HIV and viral Hepatitis for all patients aged 18 and over and those with ongoing risk factors. Elias Inquiry Pt receiving controlled substance: No Elias was queried for this patient: No Vital Signs: 01/31/25 18:56 01/31/25 19:00 01/31/25 19:09 Temperature 97.7 F Temperature Source Oral Pulse Rate 88 67 Pulse Rate [Right Radial] 84 Respiratory Rate 18 Blood Pressure 127/71 108/63 L Blood Pressure [Right Arm] 114/76 Blood Pressure Mean [Right Arm] 88 Blood Pressure Source [Right Arm] Automatic Cuff Blood Pressure Position [Right Arm] Sitting 02 Sat by Pulse Oximetry 94 L 93 L 94 L Oxygen Delivery Method Room Air 01/31/25 20:20 01/31/25 20:31 Temperature Temperature Source Pulse Rate 79 65 Pulse Rate [Right Radial] Respiratory Rate 14 17 Blood Pressure 114/64 98/50 L Blood Pressure [Right Arm] Blood Pressure Mean [Right Arm] Blood Pressure Source [Right Arm] Blood Pressure Position [Right Arm] 02 Sat by Pulse Oximetry 91 L 91 L Oxygen Delivery Method Lab Data Lab Results 01/31/25 19:25: WBC 8.0, RBC 4.91, Hgb 16.1, Hct 48.6, MCV 99.0 H, MCH 32.8 H, MCHC 33.1, RDW 11.8, Plt Count 168, MPV 11.3 H, Neut % (Auto) 71.6, Lymph % (Auto) 16.6, Upson % (Auto) 8.2, Eos % (Auto) 2.7, Baso % (Auto) 0.5, Neut # (Auto) 5.7, Lymph # (Auto) 1.3, Upson # (Auto) 0.7, Eos # (Auto) 0.2, Baso # (Auto) 0.0, PT 14.1 H, INR 1.29 H, APTT 30.8 H, Sodium 138, Potassium 3.9, Chloride 106, Carbon Dioxide 27, Anion Gap 8.9, BUN 12, Creatinine 0.80, Estimated Creat Clear 124, Estimated GFR 97, Est GFR ( Amer) 117, Glucose 101 H, Calcium 9.0, Magnesium 1.9, Total Bilirubin 0.9, AST 38, ALT 27, Alkaline Phosphatase 71, NT-Pro-B Natriuret Pep 459 H, Total Protein 6.9, Albumin 3.9, Globulin 3.0, Albumin/Globulin Ratio 1.3, Lipase 58 01/31/25 21:11: Urine Color Yellow, Urine Appearance Clear, Urine pH 5.5, Ur Specific [place] 1.010, Urine Protein Negative, Urine Glucose (UA) Negative, Urine Ketones Negative, Urine Blood 1+ A, Urine Nitrate Negative, Urine Bilirubin 1+ A, Urine Urobilinogen 1.0, Ur Leukocyte Esterase Negative 01/31/25 19:25 01/31/25 19:25 Orders (Tests/Meds): ED MEDICATIONS Generic Name Dose Route Start Last Admin Trade Name Freq PRN Reason Stop Dose Admin Sodium Chloride 10 ml 01/31/25 20:19 01/31/25 20:20 Sodium Chloride 0.9% 10ml Syr (Rad Only) IV 03/02/25 20:18 10 ml NEEDED PRN Administration Maintain IV Site Discontinued Medications Generic Name Dose Route Start Last Admin Trade Name Freq PRN Reason Stop Dose Admin Lactated Ringer's 1,000 mls @ 999 mls/hr 01/31/25 19:13 01/31/25 19:25 Lactated Ringer's 1000 Ml Bag IV 01/31/25 20:13 999 mls/hr .Q1H1M ONE Administration Iopamidol 75 ml 01/31/25 20:19 01/31/25 20:20 Iopamidol-370 (76%);100ml Bottle IV 01/31/25 20:20 75 ml ONCE ONE Administration Ketorolac Tromethamine 15 mg 01/31/25 19:13 01/31/25 19:25 Ketorolac 30mg/Ml Vial IV 01/31/25 19:14 15 mg ONCE ONE Administration Ondansetron HCl 4 mg 01/31/25 19:13 01/31/25 19:25 Ondansetron 4mg/2ml Vial IV 01/31/25 19:14 4 mg ONCE ONE Administration ORDERS Category Date Time Status CT abdomen pelvis w con Stat Cat Scan 01/31/25 19:14 Completed Complete Blood Count Auto Diff Stat Lab 01/31/25 19:25 Completed Comprehensive Metabolic Panel Stat Lab 01/31/25 19:25 Completed Lipase Stat Lab 01/31/25 19:25 Completed Magnesium Stat Lab 01/31/25 19:25 Completed NT Pro Brain Natriuretic Pep. Stat Lab 01/31/25 19:25 Completed PT INR [Prothrombin Time INR] Stat Lab 01/31/25 19:25 Completed PTT [Activated Partial Thrombo Time] Stat Lab 01/31/25 19:25 Completed Urinalysis and Microscopic Stat Lab 01/31/25 21:11 Results Medical Decision Narrative: 64-year-old male presenting with multiple complaints. History of hypertension, hyperlipidemia, numerous kidney stones, IBS and tobacco use disorder. He states that 2 or 3 days prior to this he started having right sided flank and abdominal pain. Some intermittent hematuria. Also been having cold sweats and feeling hot/cold, no objective fevers were measured. Vomiting this nonbloody, nonbilious and intermittent. Diarrhea this nonbloody, not mucousy. No one around him has been sick other than his significant other that has had an upper respiratory infection, could be related. Able to tolerate p.o. intake without issue. States that he just been feeling weak. He also complains that he has been having hemorrhoid that is just dumping blood, dark red, intermittent. No catharsis and this does not seem to be associated pain. Pain is all right- sided, right upper quadrant and right lower quadrant. States is made worse with application of pressure. Also states that intermittently radiates to his right flank. Has not taken anything for the pain. History was obtained via conversation with patient and visitor. On arrival, patient hemodynamically stable, alert, oriented x4, appropriate, GCS 15, moving all extremities spontaneously, pupils equal and reactive to light. Full physical exam performed and significant for well-appearing male who is in no acute distress. Speaking in full sentences. Normotensive, nontachycardic. Patient's abdomen is soft, nondistended, but mildly tender on the right side. No overlying skin changes. He also has some tenderness to his right flank. No evidence of hernia.. Differential includes nephrolithiasis, gastritis, gastroenteritis, PUD, pancreatitis, small bowel obstruction, partial obstruction, UTI, diverticulitis, diverticular bleed, among others. Patient placed on continuous cardiac monitoring and continuous pulse ox with initial blood pressure 114/76, heart rate 84, saturation 94% on room air. Patient was given fluids and Toradol for symptomatic management and correction of underlying abnormalities. Workup independently interpreted and significant for nonactionable chemistry with normal kidney function, normal bicarb and normal anion gap. LFTs normal. Nonactionable CBC or other labs. On independent interpretation of imaging, cirrhotic liver, no acute intra-abdominal abnormalities. No evidence of stone. See radiology read for full review of final results. On reevaluation, patient still resting at baseline. Further conversation had with family. They state that they are concerned that he may be getting pneumonia. Patient's lungs are clear, normal white count, no evidence of pleural effusions, pneumonia or other abnormalities on CT abdomen and pelvis in the inferior lung blackwell. Patient's mother also states that patient is spoiled rotten, and may just be viral. Feel this is most likely the case. Tissue perfusion reassessment performed within 3 hours, patient mentating, following commands, good capillary refill and hemodynamically stable. Given patient presentation, workup, history, this most likely represents acute gastroenteritis. Because patient at baseline without signs or symptoms of clinical decompensation, deemed appropriate for discharge. Results were relayed to patient who voiced understanding and were agreeable to outpatient management and follow up. I discussed my clinical impression with patient and answered all questions. At this time, the evidence for any other entities in the differential is insufficient to warrant any further testing or ED observation. This was explained as well. Advisory was given that persistent or worsening symptoms require further evaluation. I confirmed the understanding of this discussion. Health Assessment And Treatment Teacher disclaimer Much of this encounter note is an electronic certified financial planner spoken language to printed text. Electronic certified financial planner of the spoken language may permit errors. Although I have reviewed the note, some errors may still exist. Critical Care Critical Care Time Critical Care Time: No
[2025-01-31 19:57] LABS: NT Pro Brain Natriuretic Pep. 459 pg/mL (0-125)
--- NOTE | 2025-01-31 20:06 | PC.NURSE ---
Pt taken to radiology at this time.
[2025-01-31 20:10] LABS: Lipase 58 U/L (23-300)
--- NOTE | 2025-01-31 20:17 | PC.NURSE ---
pt returned from radiology without incident
[2025-01-31 20:20] VITALS: BP 114/64; PULSE 79; RESP 14; O2SAT 91
[2025-01-31] MEDS: SODIUM CHLORIDE 0.9% 10ML SYR (RAD ONLY) 10 ML IV (20:20)
[2025-01-31] MEDS: IOPAMIDOL-370 (76%);100ML BOTTLE 75 ML IV (20:20)
[2025-01-31 20:21] LABS: INR 1.29 (0.9-1.1); Prothrombin Time 14.1 seconds (10.1-12.5)
[2025-01-31 20:31] VITALS: BP 98/50; PULSE 65; RESP 17; O2SAT 91
[2025-01-31 21:16] LABS: Microscopic, Urine URINE MICROSCOPIC (MICROSCOPIC)
[2025-01-31 21:19] LABS: Appearance,Urine CLEAR (Clear); Blood, Urine 1+ (Negative); Color,Urine YELLOW (Yellow); Glucose,Urine (UA) Negative (Negative); Ketones,Urine Negative (Negative); Leukocyte Esterase,Urine Negative (Negative); Nitrate,Urine Negative (Negative); PH,Urine 5.5 (5.0-8.5); Protein,Urine Negative (Negative)
[2025-01-31 21:27] LABS: Bilirubin,Urine 1+ (Negative); WBC,Urine Occasional #/hpf (0-3)
[2025-01-31 21:28] LABS: Bacteria,Urine Trace /lpf; Squamous Epithelial Cell,Urine Occasional #/hpf (0-5)
[2025-01-31 21:48] VITALS: BP 114/64; PULSE 68; RESP 14; TEMP 36.5; O2SAT 93
== END 2025-01-31 21:50 | disposition home or self-care (01) ==
PROVIDERS: Emergency Provider Emergency Medicine; PCP Nurse Practitioner Family
DX: R10.84 Generalized abdominal pain (principal); F17.210 Nicotine dependence, cigarettes, uncomplicated; Z87.442 Personal history of urinary calculi
CPT/HCPCS: 74177; 80053; 81001; 83690; 83735; 83880; 85025; 85610; 85730; 96361; 96374; 96375; 99284; J1885; J2405; J7120; Q9967

== ENCOUNTER 2025-02-25 13:11 | Outpatient (CLI) | payer MEDICARE, MEDICAID, SELFPAY ==
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
--- OUTSIDE RECORDS SUMMARY | 2025-02-25 13:15 | XMS_ITS | Patient Health Record ---
Author Organization [facility] Address [address] [place] [address] Care Team Providers Care Hotel Reservationist Name Role Phone Rl Arrington II Unavailable Luisa Hatch Unavailable Unavailable David Rob Unavailable [phone] Allergies No Known Allergies Results Component Value Reference Range Notes Urine Test ANALYZER Reviewed date:02/14/2025 02:29:27 PM Interpretation:+OXY Performing Lab: Notes/Report: +OXY Heroin Metabolite (6AM) NEG Amphetamine (AMP) NEG Benzodiazepine (AL) NEG Buprenorphine NEG Cocaine (AKBAR) NEG Hydrocodone (HYD) NEG Methadone (MTD) NEG Opiate (OPI) NEG Oxycodone (OXY) POS Urine Test LCMS Definitive Reviewed date:04/20/2024 06:16:06 AM Interpretation:+soma+oxy 2/3 Performing Lab: Notes/Report: +soma+oxy 2/3 Urine Test LCMS Definitive Reviewed date:11/17/2024 02:12:55 PM Interpretation:neg all Performing Lab: Notes/Report: neg all Urine Test ANALYZER Reviewed date:04/07/2024 01:33:58 PM [...] Oxycodone (OXY) POS Urine Test ANALYZER Reviewed date:08/09/2024 08:26:39 AM Interpretation: Performing Lab: Notes/Report: Urine Test ANALYZER Reviewed date:10/21/2024 03:23:27 PM Interpretation:-ALL NEG Performing Lab: Notes/Report: -ALL NEG Heroin Metabolite (6AM) NEG Amphetamine (AMP) NEG Benzodiazepine (AL) NEG Buprenorphine NEG Cocaine (AKBAR) NEG Hydrocodone (HYD) NEG Methadone (MTD) NEG Opiate (OPI) NEG Oxycodone (OXY) NEG Urine Test ANALYZER Reviewed date:06/07/2024 03:32:43 PM Interpretation:+OXY+OPI Performing Lab: Notes/Report: +OXY+OPI Heroin Metabolite (6AM) NEG Amphetamine (AMP) NEG Benzodiazepine (AL) NEG Buprenorphine NEG Cocaine (AKBAR) NEG Hydrocodone (HYD) NEG Methadone (MTD) NEG Opiate (OPI) POS Oxycodone (OXY) POS Urine Test ANALYZER Reviewed date:12/20/2024 07:31:04 AM Interpretation:ALL NEG Performing Lab: Notes/Report: ALL NEG Heroin Metabolite (6AM) NEG Amphetamine (AMP) NEG Benzodiazepine (AL) NEG Buprenorphine NEG Cocaine (AKBAR) NEG Hydrocodone (HYD) NEG Methadone (MTD) NEG Opiate (OPI) NEG Oxycodone (OXY) NEG Reason For Referral No Information Medications Medication SIG (Take, Route, Frequency, Duration) [...] User Light cigarett e smoker ((1-9 cigs/day) Problems Problem Type SNOMED Code ICD Code Onset Dates Problem Status W/U Status Risk Notes Problem Pain of right knee region (finding) (670902772431681 ) Pain in right knee (M25.561) Active confirmed Problem Lumbosacral spondylosis without myelopathy (91226764) Other spondylosis with radiculopathy, lumbar region (M47.26) Active confirmed Problem Lumbosacral spondylosis without myelopathy (69225308) Spondylosis without myelopathy or radiculopathy, lumbar region (M47.816) Active confirmed Problem Other fpc (current) drug therapy (Z79.899) Active confirmed Problem Low back pain (743795694) Low back pain, unspecified (M54.50) Active confirmed Vital Signs Heart Rate 94 /min 02/14/2025 Blood pressure diastolic 92 mm Hg 02/14/2025 Height 69 in 02/14/2025 Blood pressure systolic 163 mm Hg 02/14/2025 Weight 280 lbs 02/14/2025 BMI 41.34 kg/m2 02/14/2025 Encounters Encounter Location Date Provider Diagnosis [facility] [address] [place] [address] 04/07/2024 Rl Arrington Other fpc (current) drug therapy Z79.899 ; Spondylosis without myelopathy or radiculopathy, lumbar region M47.816 ; Low back pain, unspecified M54.50 and Pain in right knee M25.561 [facility] [address] [place] [address] 06/07/2024 Rl Arrington Other medical terminologist (current) drug therapy Z79.899 ; Spondylosis without myelopathy or radiculopathy, lumbar region M47.816 ; Low back pain, unspecified M54.50 and Pain in right knee M25.561 [facility] [address] [place] [address] 06/17/2024 Rl Arrington Other spondylosis with radiculopathy, lumbar region M47.26 [facility] [address] [place] [address] 07/06/2024 Rl Arrington Other spondylosis with radiculopathy, lumbar region M47.26 [facility] [address] [place] [address] 07/30/2024 Rl Arrington Other fpc (current) drug therapy Z79.899 ; Spondylosis without myelopathy or radiculopathy, lumbar region M47.816 ; Low back pain, unspecified M54.50 and Pain in right knee M25.561 [facility] [address] [place] [address] 08/05/2024 Rl Arrington Other spondylosis with radiculopathy, lumbar region M47.26 [facility] [address] [place] [address] 08/26/2024 Rl Arrington Other fpc (current) drug therapy Z79.899 ; Spondylosis without myelopathy or radiculopathy, lumbar region M47.816 ; Low back pain, unspecified M54.50 and Pain in right knee M25.561 [facility] [address] [place] [address] 10/21/2024 Rl Arrington Other fpc (current) drug therapy Z79.899 ; Spondylosis without myelopathy or radiculopathy, lumbar region M47.816 ; Low back pain, unspecified M54.50 and Pain in right knee M25.561 [facility] [address] [place] [address] 12/16/2024 Rl Arrington Other fpc (current) drug therapy Z79.899 ; Spondylosis without myelopathy or radiculopathy, lumbar region M47.816 ; Low back pain, unspecified M54.50 and Pain in right knee M25.561 [facility] [address] [place] [address] 02/14/2025 David Rob Other fpc (current) drug therapy Z79.899 ; Spondylosis without myelopathy or radiculopathy, lumbar region M47.816 ; Low back pain, unspecified M54.50 and Pain in right knee M25.561 [facility] [address] [place] [address] 04/07/2024 Rl Arrington Other fpc (current) drug therapy Z79.899 [facility] [address] [place] [address] 06/07/2024 Rl Arrington Other fpc (current) drug therapy Z79.899 [facility] [address] [place] [address] 06/25/2024 Rl Arrington [facility] [address] [place] [address] 07/26/2024 Rl Arrington [facility] [address] [place] [address] 07/30/2024 Rl Arrington Other fpc (current) drug therapy Z79.899 [facility] [address] [place] [address] 08/26/2024 Rl Arrignton Other medical terminologist (current) drug therapy Z79.899 [facility] [address] [place] [address] 10/21/2024 Rl Arrington Other fpc (current) drug therapy Z79.899 [facility] [address] [place] [address] 11/22/2024 Rl Arrington [facility] [address] [place] [address] 12/16/2024 Rl Arrington [facility] [address] [place] [address] 12/20/2024 Rl Arrington Other fpc (current) drug therapy Z79.899 Assessments Encounter Date Diagnosis (ICD Code) Assessment Notes Treatment Notes Treatment Clinical Notes Section Notes 04/07/2024 Spondylosis without myelopathy or radiculopathy, lumbar [...] Opioid risk assessment is high. 04/07/2024 Other medical terminologist (current) drug therapy (ICD-10 - Z79.899) 04/07/2024 [...] Opioid risk assessment is high. 04/07/2024 Other fpc (current) drug therapy (ICD-10 - Z79.899) 06/07/2024 Spondylosis without myelopathy or radiculopathy, lumbar [...] is high. F/u 2 months. 06/07/2024 Other medical terminologist (current) drug therapy (ICD-10 - Z79.899) 06/07/2024 [...] is high. F/u 2 months. 06/07/2024 Other fpc (current) drug therapy (ICD-10 - Z79.899) 06/17/2024 Other spondylosis with radiculopathy, lumbar region (ICD-10 - M47.26) 07/06/2024 Other spondylosis with radiculopathy, lumbar region (ICD-10 - M47.26) 07/30/2024 Spondylosis without myelopathy or radiculopathy, lumbar [...] risk assessment is high. F/u 2 months. [id number] - Patient reports significant pain and functional [...] MBB at the same levels. 07/30/2024 Other fpc (current) drug therapy (ICD-10 - Z79.899) 07/30/2024 [...] risk assessment is high. F/u 2 months. 58JOW78 - Patient reports significant pain and functional [...] recent lumbar MBB at the same levels. 08/05/2024 Other spondylosis with radiculopathy, lumbar region (ICD-10 - M47.26) 08/26/2024 Other fpc (current) drug therapy (ICD-10 - Z79.899) 10/21/2024 [...] follow up in two months. 10/21/2024 Other fpc (current) drug therapy (ICD-10 - Z79.899) 10/21/2024 [...] follow up in two months. 10/21/2024 Other fpc (current) drug therapy (ICD-10 - Z79.899) 12/16/2024 Other fpc (current) drug therapy (ICD-10 - Z79.899) 10/21/2024 [...] Schedule to follow up in two months. 12/20/2024 Other fpc (current) drug therapy (ICD-10 - Z79.899) 02/14/2025 Spondylosis without myelopathy or radiculopathy, lumbar region (ICD-10 - M47.816) February 14, 2025: The patient presents to the [facility] office in [facility] for an audiovisual-telem edicine visit. The patient was evaluated by the medical research scientist and a urine drug screen was obtained as well as vital signs. Portions of the physical examination were assisted by the medical research scientist during the audiovisual-telem edicine visit Review of history and previous note: Mr. Burgos is here today for an [...] the same levels. February 14, 2025: Mr. Burgos is a 64-year-old gentleman with a history [...] him for repeat RFA bilateral L3-4-5. 02/14/2025 Other medical terminologist (current) drug therapy (ICD-10 - Z79.899) 02/14/2025 1. Refill Oxycodone 5mg TID 2. Continue HEP 3. F/U 2 months February 14, 2025: The patient presents to the [facility] office in [facility] for an audiovisual-telem edicine visit. The patient was evaluated by the medical research scientist and a urine drug screen was obtained as well as vital signs. Portions of the physical examination were assisted by the medical research scientist during the audiovisual-telem edicine visit Review of history and previous note: Mr. Burgos is here today for an [...] the same levels. February 14, 2025: Mr. Burgos is a 64-year-old gentleman with a history [...] schedule him for repeat RFA bilateral L3-4-5. 08/26/2024 Spondylosis without myelopathy or radiculopathy, lumbar [...] follow up in two months. 08/26/2024 Other medical terminologist (current) drug therapy (ICD-10 - Z79.899) 08/26/2024 [...] follow up in two months. 07/30/2024 Other medical terminologist (current) drug therapy (ICD-10 - Z79.899) 12/16/2024 Spondylosis without myelopathy or radiculopathy, lumbar [...] to follow up in two months. 08/26/2024 Low back pain, unspecified (ICD-10 - [...] Schedule to follow up in two months. 02/14/2025 Low back pain, unspecified (ICD-10 - M54.50) February 14, 2025: The patient presents to the [facility] office in [facility] for an audiovisual-telem edicine visit. The patient was evaluated by the medical research scientist and a urine drug screen was obtained as well as vital signs. Portions of the physical examination were assisted by the medical research scientist during the audiovisual-telem edicine visit Review of history and previous note: Mr. Burgos is here today for an [...] the same levels. February 14, 2025: Mr. Burgos is a 64-year-old gentleman with a history [...] schedule him for repeat RFA bilateral L3-4-5. 10/21/2024 Low back pain, unspecified (ICD-10 - [...] risk assessment is high. F/u 2 months. 17MEQ22 - Patient reports significant pain and functional [...] lumbar MBB at the same levels. 06/07/2024 Low back pain, unspecified (ICD-10 - [...] risk assessment is high. F/u 2 months. 04/07/2024 Low back pain, unspecified (ICD-10 - [...] reviewed. Opioid risk assessment is high. 04/07/2024 Pain in right knee (ICD-10 - [...] were reviewed. Opioid risk assessment is high. 06/07/2024 Pain in right knee (ICD-10 - [...] risk assessment is high. F/u 2 months. 07/30/2024 Pain in right knee (ICD-10 [...] risk assessment is high. F/u 2 months. [id number] - Patient reports significant pain and functional [...] Schedule to follow up in two months. 02/14/2025 Pain in right knee (ICD-10 - M25.561) February 14, 2025: The patient presents to the [facility] office in [facility] for an audiovisual-telem edicine visit. The patient was evaluated by the medical research scientist and a urine drug screen was obtained as well as vital signs. Portions of the physical examination were assisted by the medical research scientist during the audiovisual-telem edicine visit Review of history and previous note: Mr. Burgos is here today for an [...] the same levels. February 14, 2025: Mr. Burgos is a 64-year-old gentleman with a history [...] schedule him for repeat RFA bilateral L3-4-5. 12/16/2024 Low back pain, unspecified (ICD-10 - [...] to follow up in two months. 08/26/2024 Pain in right knee (ICD-10 [...] to follow up in two months. 04/05/2024 02/04/24 Mr. Burgos is here today for an office visit and medication refill. He reports that his current medication keeps his pain down to a manageable level. 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 [...] Refill and Follow up in 2 months. Plan Of Treatment Next Appt Details Provider Name:Rl Palacios melody, 03/10/2025 01:00:00 PM, [address], [address], [place], [address], Provider Name:Rl Palacios melody, 04/11/2025 02:45:00 PM, [address], [address], [place], [address], Insurance Providers Payer Name Payer Address Payer Phone Subscriber Number Group Number Insured Name Patient Relationship to Insured Coverage Start Date Coverage End Date [employer] [address] [place] [phone] [id number] Aubrey Fransisco Self - patient is the insured 4 [place] [address] [place] [address] [phone] [id number] Aubrey Fransisco Self - patient is the insured 0 Medical (General) History Medical History History ICD Code Anxiety diagnosed 2021, managed by Enrrique Lewis A-FIB diagnosed 2021, managed by Luisa Lweis COPD diagnosed 2021, managed by Luisa gray CVA diagnosed 2021, managed by Luisa tomas edema diagnosed 2021, managed by Luisa Lweis Surgical History Surgery Date(Month/Year) knee replacement [address] Ridley 1 d ay stay 2001 [facility] leg unknown [facility] ([facility]) 1976 hernia repair at [facility] OP) 20 14 cholecystectomy at [facility] (OP) [address] Ridley in [facility] 1999
[2025-02-25] MEDS: ALBUTEROL 0.083% 2.5 MG/3 ML NEB IH (13:34)
--- NOTE | 2025-02-25 14:23 | PC.NURSE ---
PFT completed without incident. Albuterol 0.083% given via HHN, per written protocol, Pt tolerated tx well. 6 Minute walk test not completed due to Patient having a new prosthetic leg made, will be receiving soon, current prosthetic causes him pain in different places and walking is difficult. Pt will complete once he has new prosthesis.
== END 2025-02-25 23:59 | disposition home or self-care (01) ==
LOC: RT 13:12
PROVIDERS: PCP Nurse Practitioner Family; Visit Provider Internal Medicine Pulmonary Disease
DX: J44.9 Chronic obstructive pulmonary disease, unspecified (principal); R94.2 Abnormal results of pulmonary function studies
CPT/HCPCS: 94010; 94727; 94729

== ENCOUNTER 2025-03-06 00:55 | Emergency (ER) | payer MEDICARE, MEDICAID, SELFPAY ==
--- OUTSIDE RECORDS SUMMARY | 2015-06-23 09:40 | XMS_ITS | Encounter Summary ---
[facility] Address [address] [place] [address] Care Team Providers Care Offal Separator Name Role Phone Elder, Ewa Llanes APRN Primary Care Provider [phone] Encounter Details Date Type Department Care Team (Late st Contact Info) Description 06/23/2015 7:40 AM [facility] [address] [place] [address] Social History Tobacco Use Types Packs/Day Years [...] place to sleep or slept in a retirement (including now)? No 02/12/2022 Abuse Screen Answer [...] HEPATIC FUNCTION PANEL Today 06/23/2015 3:10 PM SALVAGE WORKER documented in this encounter Results * (ABNORMAL) Hepatic function panel (06/23/2015 3:10 PM SALVAGE WORKER) Total Protein 7.3 6.3 - 8.6 gm/dl 06/23/2015 3:55 PM SALVAGE WORKER [facility] Albumin 3.4 3.4 - 4.8 gm/dl 06/23/2015 3:55 PM [facility] Bilirubin, Direct 0.0 0.0 - 0.3 mg/dl 06/23/2015 3:55 PM [facility] Total Bilirubin 1.0 0.2 - 1.3 mg/dl 06/23/2015 3:55 PM [facility] Alkaline Phosphatase 88 38 - 126 U/L 06/23/2015 3:55 PM [facility] AST (SGOT) 208(H) 17 - 59 U/L 06/23/2015 3:55 PM [facility] ALT (SGPT) 224(H) 21 - 72 U/L 06/23/2015 3:55 PM [facility] Blood specimen (specimen) 06/23/2015 3:10 PM SALVAGE WORKER 06/23/2015 3:42 PM SALVAGE WORKER Narrative [facility] - 06/23/2015 3:55 PM SALVAGE WORKER Specimen Type : BloodPLEASE FAX RESULTS TO [phone] us Miguel Angel Onofre MD LAB BLOOD ORDERABLES Final Res ult [facility]
[address] [place] [address], documented in this encounter Visit Diagnoses Not on filedocumented in this encounter Additional Health Concerns Infection Onset Date Last Indicated Resolved Time COVID (rule out) 02/10/2022 02/10/2022 02/11/2022 9:17 AM EDT COVID (rule out) 06/21/2022 06/21/2022 06/24/2022 3:15 PM EST Influenza 06/21/2022 06/21/2022 07/21/2022 9:08 PM EST C.difficile (rule out) 10/14/2022 10/15/202210/19 9:08 PM EST documented as of this encounter Care Teams Offal Separator Relationship Specialty Start Date End Date Ewa Hou APRN [address] [place] [address] PCP - General 03/30/15 06/20/22 documented as of this encounter
--- OUTSIDE RECORDS SUMMARY | 2015-11-15 08:04 | XMS_ITS | Encounter Summary ---
Author Organization [facility] Address [address] [place] [address] Care Team Providers Care Conservation Planner Name Role Phone Elder, Ewa Llanes APRN Primary Care Provider [phone] Encounter Details Date Type Department Care Team (Late st Contact Info) Description 11/15/2015 7:04 AM CDT Hospital Encounter [facility] Levar Stoner MD [address] [place] [address] [address] [place] [address] Social History Tobacco Use Types [...] place to sleep or slept in a penitentiary (including now)? No 02/12/2022 Abuse Screen Answer [...] documented as of this encounter Care Teams Conservation Planner Relationship Specialty Start Date End Date Ewa Hou APRN [address] [place] [address] PCP - General 03/30/15 06/20/22 documented as of this encounter
--- OUTSIDE RECORDS SUMMARY | 2015-11-20 14:05 | XMS_ITS | Encounter Summary ---
[facility] Address [address] [place] [address] Care Team Providers Care Tripe Cooker Name Role Phone Elder, Ewa Llanes APRN Primary Care Provider [phone] Encounter Details Date Type Department Care Team (Late st Contact Info) Description 11/20/2015 1:05 PM CDT Hospital Encounter [facility] Levar Stoner MD [address] [place] [address] [address] [place] [address] Social History Tobacco Use Types [...] documented as of this encounter Care Teams Tripe Cooker Relationship Specialty Start Date End Date Ewa Hou APRN [address] [place] [address] PCP - General 03/30/15 06/20/22 documented as of this encounter
--- OUTSIDE RECORDS SUMMARY | 2015-11-22 08:18 | XMS_ITS | Encounter Summary ---
Author Organization [facility] Address [address] [place] [address] Care Team Providers Care Valve Grinder Name Role Phone Elder, Ewa Llanes APRN Primary Care Provider [phone] Encounter Details Date Type Department Care Team (Late st Contact Info) Description 11/22/2015 7:18 AM CDT Hospital Encounter [facility] Levar Stoner MD [address] [place] [address] [address] [place] [address] Social History Tobacco Use Types [...] documented as of this encounter Care Teams Valve Grinder Relationship Specialty Start Date End Date Ewa Hou APRN [address] [place] [address] PCP - General 03/30/15 06/20/22 documented as of this encounter
--- OUTSIDE RECORDS SUMMARY | 2016-01-04 09:27 | XMS_ITS | Encounter Summary ---
Author Organization [facility] Address [address] [place] [address] Care Team Providers Care Backbreaker Name Role Phone Elder, Ewa Llanes APRN Primary Care Provider [phone] Encounter Details Date Type Department Care Team (Late st Contact Info) Description 01/04/2016 8:27 AM CDT Hospital Encounter [facility] Rl Farmer, KACIE [address] [place] [address] [address] [place] [address] Social History Tobacco Use Types [...] place to sleep or slept in a alf (including now)? No 02/12/2022 Abuse Screen Answer [...] documented as of this encounter Care Teams Backbreaker Relationship Specialty Start Date End Date Ewa Hou APRN [address] [place] [address] PCP - General 03/30/15 06/20/22 documented as of this encounter
--- OUTSIDE RECORDS SUMMARY | 2016-01-04 11:00 | XMS_ITS | Encounter Summary ---
Author Organization [facility] Address [address] [place] [address] Care Team Providers Care President Ceo & Founder Name Role Phone Elder, Ewa Llanes APRN Primary Care Provider [phone] Encounter Details Date Type Department Care Team (Late st Contact Info) Description 01/04/2016 10:00 AM CDT Hospital Encounter [facility] [address] MIKE HDZ [address] [place] [phone] Levar Stoner MD [address] [place] [address] [address] [place] [address] Social History Tobacco Use Types [...] documented as of this encounter Care Teams President Ceo & Founder Relationship Specialty Start Date End Date Ewa Hou APRN [address] [place] [address] PCP - General 03/30/15 06/20/22 documented as of this encounter
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
[2025-03-06 01:00] VITALS: BP 144/93; PULSE 92; RESP 16; TEMP 36.8; O2SAT 97; BMI 38.0
--- NOTE | 2025-03-06 01:04 | ED_ITS ---
Discharge Plan Disposition Patient Disposition: Home, Self-Care Prescriptions Prescriptions: No Action oxycodone 5 mg tablet 5 mg PO NEEDED PRN (Reason: Pain) diclofenac sodium [Voltaren Arthritis Pain] 1 % gel 2 g topical QID Qty: 100 2RF Rx Instructions: apply to single elbow, wrist or hand; for hand includes palm/fingers/back of hand meloxicam 15 mg tablet 15 mg PO DAILY pantoprazole 20 mg tablet,delayed release (DR/EC) 20 mg PO DAILY Qty: 90 2RF potassium chloride 10 mEq capsule, extended release 10 meq PO DAILY Qty: 30 0RF tizanidine 4 mg tablet 4 mg PO DAILY Qty: 30 0RF docusate sodium [Dulcolax Stool Softener (dss)] 100 mg capsule 100 mg PO DAILY Qty: 30 0RF Xarelto 10 mg tablet See Rx Instructions .ROUTE .COMPLEX Qty: 30 3RF Dose Instruction: TAKE 1 TABLET BY MOUTH ONCE A DAY FOF DVT Rx Instructions: TAKE 1 TABLET BY MOUTH ONCE A DAY FOF DVT tadalafil [Cialis] 5 mg tablet 5 mg PO DAILY Qty: 30 0RF tamsulosin [Flomax] 0.4 mg capsule 0.4 mg PO DAILY Qty: 30 0RF furosemide 20 mg tablet See Rx Instructions .ROUTE .COMPLEX Qty: 30 2RF Dose Instruction: TAKE 1/2 TABLET BY MOUTH ONCE A DAY FOR FLUID RETENTION Rx Instructions: TAKE 1/2 TABLET BY MOUTH ONCE A DAY FOR FLUID RETENTION guaifenesin [Mucinex] 600 mg tablet extended release 12hr 600 mg PO BID PRN (Reason: cough) Qty: 14 0RF albuterol sulfate 90 mcg/actuation HFA aerosol inhaler 2 inh inhalation Q4H PRN (Reason: shortness of breath or wheezing) Qty: 6.7 0RF ondansetron 4 mg tablet,disintegrating 4 mg PO Q6H PRN (Reason: nausea and vomiting) Qty: 10 0RF Referrals Follow up/Referrals: Jordan Siddiqui MD [Staff Physician, General Surgery] - See instructions Provider,MD Austin [Referring, Medical] - See instructions Activity Restrictions/Add. Instructions Additional Instructions/Restrictions: Please follow-up with your primary care provider. Consider calling our general surgeon to have your hernia reevaluated. Please return to the emergency depar tment if you develop any new or worsening symptoms or become concerned for your health. Clinical Impressions Clinical Impression: Abdominal pain, Abdominal hernia Instructions Patient Instructions: DI for Acute Abdominal Pain Print Language Print Language: Croatian Discharge ED Provider: Herrera Knowles General Adult HPI General Chief complaint: Abdominal Pain Stated complaint: Abd pain Time Seen by Provider: 03/06/25 00:57 History of Present Illness HPI narrative: 64-year-old male presents for now resolved abdominal pain. He reports that he has a history of a prior abdominal hernia repair. Tonight he was tinkering in his garage when he bent over and felt a bulge and pain in his abdomen where his prior hernia repair was. It was quite tender and painful. He came in by EMS and by the time he got here the bulge was gone and his pain was significantly improved/resolved. Denies any other symptoms. Related Data Home Medications ?Medication ?Instructions ?Recorded ?Confirmed oxycodone 5 mg tablet 5 mg PO NEEDED PRN Pain 0 09/11/23 01/04/25 meloxicam 15 mg tablet 15 mg PO DAILY 01/04/2512/17 Previous Rx's ?Medication ?Instructions ?Recorded albuterol sulfate 90 mcg/actuation 2 inh inhalation Q4 H PRN shortness 01/14/24 aerosol inhaler of breath or wheezing #6.7 g dilip diclofenac sodium 1 % topical gel 2 g topical QID #100 grams 07/07/24 (Voltaren Arthritis Pain) pantoprazole 20 mg tablet,delayed 20 mg PO DAILY #90 t abs 10/26/24 release guaifenesin 600 mg tablet, 600 mg PO BID PRN cough #14 tabs 11/09/24 extended release 12 hr (Mucinex) potassium chloride 10 mEq 10 meq PO DAILY #30 caps 11/09 capsule,extended release tizanidine 4 mg tablet 4 mg PO DAILY #30 tabs 11/18 docusate sodium 100 mg capsule 100 mg PO DAILY #30 cap s 12/01/24 (Dulcolax Stool Softener (docusate)) rivaroxaban 10 mg tablet (Xarelto) See Rx Instructions .Route 12/20/24 .COMPLEX #30 tabs tadalafil 5 mg tablet (Cialis) 5 mg PO DAILY #30 tabs 12/21/24 tamsulosin 0.4 mg capsule (Flomax) 0.4 mg PO DAILY #30 caps 12/21/24 furosemide 20 mg tablet See Rx Instructions .Route 0 01/11/25 .COMPLEX #30 tabs ondansetron 4 mg disintegrating 4 mg PO Q6H PRN nausea and 01/31/25 tablet vomiting #10 tabs Allergies Allergy/AdvReac Type Severity Reaction Status Date / Time gabapentin (From Neurontin) AdvReac Mild Unknown Verified 01/31/25 19:00 [facility] Disclaimer: The information contained in this section may have been updated after the patient was seen, as this information can be updated by other users. 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 History of stroke Surgical History History of back surgery History of knee replacement Family History Other Cancer Diabetes Social History Smoking Status: Current every day smoker years smoked: 50 quit status: has quit before alcohol intake: current alcohol intake frequency: holidays/special occasions only substance use type: denies use current occupational status: retired Travel in the last 8 weeks?: None housing: house marital status: life partner education level: high school Have you lived/traveled outside US in past 30 days?: No Contact w/someone who lives/traveled outside US past 30 days?: No Exposure to someone with infectious disease in past 14 days?: No Do you have a fever (greater than 100.4 F or 38 C)?: No Have you tested positive for COVID-19?: No Exposed to someone with COVID-19 in past 14 days?: No Do you have a sore throat?: No Do you have a cough?: No Do you have any weakness?: No Do you have any diarrhea?: No Are you experiencing any unusual bleeding?: No Do you have any muscle aches/pain?: No Do you have any abdominal pain?: Yes Are you experiencing loss of taste or smell?: No Other Medical History Have you received the Pneumonia Vaccine: Yes ROS Obtained: Yes All systems reviewed & no additional complaints except as documented Physical Exam General General appearance: alert and in no apparent distress Head Head exam: atraumatic and normocephalic Eye Eye exam: Present normal appearance, PERRL and EOMI ENT ENT exam: Present normal oropharynx and normal external ear exam Neck Neck exam: Present normal inspection and full ROM Chest Chest inspection: Present normal inspection and symmetric chest wall rise; Absent tenderness Respiratory Respiratory exam: Present normal lung sounds bilaterally; Absent respiratory distress Cardiovascular Cardiovascular exam: Present regular rate and normal rhythm Abdominal Exam Abdominal exam: Present soft; Absent distention, tenderness or guarding Extremities Exam Extremities exam: Present normal inspection; Absent edema or joint swelling Back Exam Back exam: Present normal inspection; Absent tenderness Neurological Exam Neurological exam: Present alert and oriented X3; Absent motor sensory deficit Psychiatric Psychiatric exam: Present normal affect and normal mood Skin Skin exam: Present warm, dry and normal color Lymphatic Lymphatic Findings: no adenopathy Medical Decision Making Medical Records Medical records reviewed: Yes I reviewed the patient's medical records. Screening: Per USPSTF and CDC recommendations, given the prevalence of disease in our [place] on, it is our hospital?s policy to screen for HIV and viral Hepatitis for all patients aged 18 and over and those with ongoing risk factors. Elias Inquiry Pt receiving controlled substance: No Elias was queried for this patient: No Vital Signs: 03/06/25 01:00 03/06/25 01:39 Temperature 98.3 F 97.9 F Temperature Source Oral Oral Pulse Rate 90 Pulse Rate [Radial] 92 H Respiratory Rate 16 16 Blood Pressure 125/73 Blood Pressure [Right Arm] 144/93 H Blood Pressure Mean [Right Arm] 110 Blood Pressure Position Sitting Blood Pressure Position [Right Arm] Sitting 02 Sat by Pulse Oximetry 97 Oxygen Delivery Method Room Air Nasal Cannula Oxygen Flow Rate (LPM) 2 Lab Data Lab results reviewed: Yes I reviewed the patient's lab results. Orders (Tests/Meds): ED MEDICATIONS Discontinued Medications Generic Name Dose Route Start Last Admin Trade Name Freq PRN Reason Stop Dose Admin Acetaminophen 1,000 mg 03/06/25 01:03 03/06/25 01:14 Acetaminophen 500mg Tab PO 03/06/25 01:04 1,000 mg ONCE ONE Administration Ketorolac Tromethamine 15 mg 03/06/25 01:03 03/06/25 01:14 Ketorolac 30mg/Ml Vial IV 03/06/25 01:04 15 mg ONCE ONE Administration Medical Decision Narrative: 64-year-old male with history of prior umbilical hernia status post repair presents for abdominal pain.. History was obtained via interactive discussion with patient. On arrival, patient is [afebrile, hemodynamically stable, satting appropriately, alert, oriented x4, GCS 15], moving all extremities spontaneously. Full physical exam performed and significant for benign abdominal exam, no obvious hernia, no tenderness. Differential includes but is not limited to hernia, incarcerated hernia, strangulated hernia, muscle strain.. CT imaging was considered but deemed unnecessary given patient is asymptomatic at this time. The symptoms were not able to be reproduced on exam and the bolus that the patient fell previously is no longer there. It may be that he had a hernia that previously had a loop of bowel and it or was briefly incarcerated, but no obvious pathology at this time. No significant concern for other pathology at this time. Patient was discharged in stable condition with strict return precautions. Procedures Risk/Benefits of Procedure(s) Were Explained: Yes Critical Care Critical Care Time Critical Care Time: No
--- OUTSIDE RECORDS SUMMARY | 2025-03-06 01:05 | XMS_ITS | Patient Health Record ---
Author Organization [facility] Address [address] [place] [address] Care Team Providers Care Agriscience Technology Instructor Name Role Phone Rl Arrington II Unavailable Luisa Hatch Unavailable Unavailable David Rob Unavailable [phone] Allergies No Known Allergies Results Component Value [...] Notes/Report: neg all Urine Test ANALYZER Reviewed date:10/21/2024 03:23:27 PM Interpretation:-ALL NEG Performing Lab: Notes/Report: -ALL NEG Heroin Metabolite (6AM) NEG Amphetamine (AMP) NEG Benzodiazepine (AL) NEG Buprenorphine NEG Cocaine (AKBAR) NEG Hydrocodone (HYD) NEG Methadone (MTD) NEG Opiate (OPI) NEG Oxycodone (OXY) NEG Urine Test ANALYZER Reviewed date:04/07/2024 01:33:58 PM Interpretation:+OPI+OXY Performing Lab: Notes/Report: +OPI+OXY Heroin Metabolite (6AM) NEG Amphetamine (AMP) NEG Benzodiazepine (AL) NEG Buprenorphine NEG Cocaine (AKBAR) NEG Hydrocodone (HYD) NEG Methadone (MTD) NEG Opiate (OPI) POS Oxycodone (OXY) POS Urine Test ANALYZER Reviewed date:02/14/2025 02:29:27 PM Interpretation:+OXY Performing Lab: Notes/Report: +OXY Heroin Metabolite (6AM) NEG Amphetamine (AMP) NEG Benzodiazepine (AL) NEG Buprenorphine NEG Cocaine (AKBAR) NEG Hydrocodone (HYD) NEG Methadone (MTD) NEG Opiate (OPI) NEG Oxycodone (OXY) POS Urine Test ANALYZER Reviewed date:08/09/2024 08:26:39 AM Interpretation: Performing Lab: Notes/Report: Urine Test ANALYZER Reviewed date:08/31/2024 12:18:17 PM Interpretation:+OXY Performing Lab: Notes/Report: +OXY Heroin Metabolite (6AM) NEG Amphetamine (AMP) NEG Benzodiazepine (AL) NEG Buprenorphine NEG Cocaine (AKBAR) NEG Hydrocodone (HYD) NEG Methadone (MTD) NEG Opiate (OPI) NEG Oxycodone (OXY) POS Urine Test ANALYZER Reviewed date:06/07/2024 03:32:43 PM Interpretation:+OXY+OPI Performing Lab: Notes/Report: +OXY+OPI Heroin Metabolite (6AM) NEG Amphetamine (AMP) NEG Benzodiazepine (AL) NEG Buprenorphine NEG Cocaine (AKBAR) NEG Hydrocodone (HYD) NEG Methadone (MTD) NEG Opiate (OPI) POS Oxycodone (OXY) POS Reason For Referral No Information Medications Medication [...] Status W/U Status Risk Notes Problem Pain in right knee (M25.561) Active confirmed Problem Lumbosacral spondylosis without myelopathy (39379362) Other spondylosis with radiculopathy, lumbar region (M47.26) Active confirmed Problem Lumbosacral spondylosis without myelopathy (16820162) Spondylosis without myelopathy or radiculopathy, lumbar region (M47.816) Active confirmed Problem Long-term current use of drug therapy (005420959) Other snf (current) drug therapy (Z79.899) Active confirmed Problem Low back pain (424288326) Low back pain, unspecified (M54.50) Active confirmed Vital Signs Heart Rate 94 /min 02/14/2025 Blood pressure diastolic 92 mm Hg 02/14/2025 Height 69 in 02/14/2025 Blood pressure systolic 163 mm Hg 02/14/2025 Weight 280 lbs 02/14/2025 BMI 41.34 kg/m2 02/14/2025 Encounters Encounter Location Date Provider Diagnosis [facility] [address] [place] [address] 04/07/2024 Rl Arrington Other long term care pharmacist (current) drug therapy Z79.899 ; Spondylosis without myelopathy or radiculopathy, lumbar region M47.816 ; Low back pain, unspecified M54.50 and Pain in right knee M25.561 [facility] [address] [place] [address] 06/07/2024 Rl Arrington Other long term care pharmacist (current) drug therapy Z79.899 ; Spondylosis without myelopathy or radiculopathy, lumbar region M47.816 ; Low back pain, unspecified M54.50 and Pain in right knee M25.561 [facility] [address] [place] [address] 06/17/2024 Rl Arrington Other spondylosis with radiculopathy, lumbar region M47.26 [facility] [address] [place] [address] 07/06/2024 Rl Arrington Other spondylosis with radiculopathy, lumbar region M47.26 [facility] [address] [place] [address] 07/30/2024 Rl Arrington Other snf (current) drug therapy Z79.899 ; Spondylosis without myelopathy or radiculopathy, lumbar region M47.816 ; Low back pain, unspecified M54.50 and Pain in right knee M25.561 [facility] [address] [facility] [place] [address] 08/05/2024 Rl Arrington Other spondylosis with radiculopathy, lumbar region M47.26 [facility] [address] [place] [address] 08/26/2024 Rl Arrington Other long term care pharmacist (current) drug therapy Z79.899 ; Spondylosis without myelopathy or radiculopathy, lumbar region M47.816 ; Low back pain, unspecified M54.50 and Pain in right knee M25.561 [facility] [address] [facility] [place] [address] 10/21/2024 Rl Arrington Other long term care pharmacist (current) drug therapy Z79.899 ; Spondylosis without myelopathy or radiculopathy, lumbar region M47.816 ; Low back pain, unspecified M54.50 and Pain in right knee M25.561 [facility] [address] [place] [address] 12/16/2024 Rl Arrington Other snf (current) drug therapy Z79.899 ; Spondylosis without myelopathy or radiculopathy, lumbar region M47.816 ; Low back pain, unspecified M54.50 and Pain in right knee M25.561 [facility] [address] [place] [address] 02/14/2025 David Rob Other long term care pharmacist (current) drug therapy Z79.899 ; Spondylosis without myelopathy or radiculopathy, lumbar region M47.816 ; Low back pain, unspecified M54.50 and Pain in right knee M25.561 [facility] [address] [place] [address] 04/07/2024 Rl Arrington Other long term care pharmacist (current) drug therapy Z79.899 [facility] [address] [place] [address] 06/07/2024 Rl Arrington Other snf (current) drug therapy Z79.899 [facility] [address] [place] [address] 06/25/2024 Rl Arrington [facility] [address] [place] [address] 07/26/2024 Rl Arrington [facility] [address] [place] [address] 07/30/2024 Rl Arrington Other snf (current) drug therapy Z79.899 [facility] [address] [place] [address] 08/26/2024 Rl Arrington Other long term care pharmacist (current) drug therapy Z79.899 [facility] [address] [place] [address] 10/21/2024 Rl Arrington Other snf (current) drug therapy Z79.899 [facility] [address] [place] [address] 11/22/2024 Rl Arrington [facility] [address] [place] [address] 12/16/2024 Rl Arrington [facility] [address] [place] [address] 12/20/2024 Rl Arrington Other long term care pharmacist (current) drug therapy Z79.899 [facility] [address] [place] [address] 02/28/2025 Daivd Rob Assessments Encounter Date Diagnosis (ICD Code) Assessment Notes Treatment Notes Treatment Clinical Notes Section Notes 07/06/2024 Other spondylosis with radiculopathy, lumbar region (ICD-10 - M47.26) 10/21/2024 Other long term care pharmacist (current) drug therapy (ICD-10 - Z79.899) 12/16/2024 Other long term care pharmacist (current) drug therapy (ICD-10 - Z79.899) 10/21/2024 [...] follow up in two months. 12/20/2024 Other snf (current) drug therapy (ICD-10 - Z79.899) 02/14/2025 Spondylosis without myelopathy or radiculopathy, lumbar region (ICD-10 - M47.816) February 14, 2025: The patient presents to the [facility] office in [facility] for an audiovisual-telem edicine visit. The patient was evaluated by the medical appliance maker and a urine drug screen was obtained as well as vital signs. Portions of the physical examination were assisted by the medical appliance maker during the audiovisual-telem edicine visit Review of [...] for repeat RFA bilateral L3-4-5. 02/14/2025 Other long term care pharmacist (current) drug therapy (ICD-10 - Z79.899) 02/14/2025 1. Refill Oxycodone 5mg TID 2. Continue HEP 3. F/U 2 months February 14, 2025: The patient presents to the [facility] office in [facility] for an audiovisual-telem edicine visit. The patient was evaluated by the medical appliance maker and a urine drug screen was obtained as well as vital signs. Portions of the physical examination were assisted by the medical appliance maker during the audiovisual-telem edicine visit Review of [...] schedule him for repeat RFA bilateral L3-4-5. 07/30/2024 Spondylosis without myelopathy or radiculopathy, lumbar [...] risk assessment is high. F/u 2 months. [id number] - Patient reports significant pain and functional [...] MBB at the same levels. 07/30/2024 Other long term care pharmacist (current) drug therapy (ICD-10 - Z79.899) 07/30/2024 [...] risk assessment is high. F/u 2 months. [id number] - Patient reports significant pain and functional [...] recent lumbar MBB at the same levels. 06/17/2024 Other spondylosis with radiculopathy, lumbar region (ICD-10 - M47.26) 06/07/2024 Other snf (current) drug therapy (ICD-10 - Z79.899) 06/07/2024 [...] is high. F/u 2 months. 06/07/2024 Other long term care pharmacist (current) drug therapy (ICD-10 - Z79.899) 06/07/2024 [...] assessment is high. F/u 2 months. 04/07/2024 Spondylosis without myelopathy or radiculopathy, lumbar [...] Opioid risk assessment is high. 04/07/2024 Other long term care pharmacist (current) drug therapy (ICD-10 - Z79.899) 04/07/2024 [...] Opioid risk assessment is high. 04/07/2024 Other snf (current) drug therapy (ICD-10 - Z79.899) 10/21/2024 [...] follow up in two months. 10/21/2024 Other long term care pharmacist (current) drug therapy (ICD-10 - Z79.899) 10/21/2024 [...] follow up in two months. 08/26/2024 Other long term care pharmacist (current) drug therapy (ICD-10 - Z79.899) 08/26/2024 [...] follow up in two months. 08/26/2024 Other snf (current) drug therapy (ICD-10 - Z79.899) 08/26/2024 [...] Schedule to follow up in two months. 08/05/2024 Other spondylosis with radiculopathy, lumbar region (ICD-10 - M47.26) 07/30/2024 Other long term care pharmacist (current) drug therapy (ICD-10 - Z79.899) 08/26/2024 Low back pain, unspecified (ICD-10 - [...] to follow up in two months. 04/07/2024 Low back pain, unspecified (ICD-10 [...] reviewed. Opioid risk assessment is high. 06/07/2024 Low back pain, unspecified (ICD-10 - [...] assessment is high. F/u 2 months. 07/30/2024 Low back pain, unspecified (ICD-10 [...] risk assessment is high. F/u 2 months. [id number] - Patient reports significant pain and functional [...] recent lumbar MBB at the same levels. 02/14/2025 Low back pain, unspecified (ICD-10 - M54.50) February 14, 2025: The patient presents to the [facility] office in [facility] for an audiovisual-telem edicine visit. The patient was evaluated by the medical appliance maker and a urine drug screen was obtained as well as vital signs. Portions of the physical examination were assisted by the medical appliance maker during the audiovisual-telem edicine visit Review of [...] 14, 2025: The patient presents to the [facility] office in [facility] for an audiovisual-telem edicine visit. The patient was evaluated by the medical appliance maker and a urine drug screen was obtained as well as vital signs. Portions of the physical examination were assisted by the medical appliance maker during the audiovisual-telem edicine visit Review of [...] risk assessment is high. F/u 2 months. [id number] - Patient reports significant pain and functional [...] lumbar MBB at the same levels. 06/07/2024 Pain in right knee (ICD-10 - [...] assessment is high. F/u 2 months. 04/07/2024 Pain in right knee (ICD-10 [...] were reviewed. Opioid risk assessment is high. 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 [...] Next Appt Details Provider Name:Rl Palacios melody, 04/11/2025 02:45:00 PM, [address], [address], [place], [address], Insurance Providers Payer Name Payer Address Payer Phone Subscriber Number Group Number Insured Name Patient Relationship to Insured Coverage Start Date Coverage End Date [employer] Medicare [address] [place] [phone] [id number] Aubrey Fransisco Self - patient is the insured [place] [address] [place] [address] [id number] AubreyFransisco Self - patient is the insured [...] ay stay 2001 left leg unknown [facility]) 1975 hernia repair at [facility] OP) 20 14 cholecystectomy at [facility] (OP) [address] Ridley in [facility] 1999
--- OUTSIDE RECORDS SUMMARY | 2025-03-06 01:05 | XMS_ITS | Encounter Summary ---
[facility] Address [address] [place] [address] Care Team Providers Care Portrait Studio Photographer Name Role Phone Luisa Lewis APRN Primary Care Provider + [phone] Encounter Details Date Type Department Care Team (Late st Contact Info) Description 02/12/2022 Retail Pharmacy Consultation [facility] [place] [address] [place] [address] Seda Vasquez [facility] [address] [place] [address] Social History Tobacco Use Types Packs/Day Years Used Date Smoking Tobacco: Every Day Cigarettes Smokeless Tobacco: Never Alcohol Use Standard Drinks/Week Comments Yes 0 (1 standard drink = 0.6 oz pur e alcohol) AUDIT-C Answer Date Recorded Q1: How often do you have a drink containing alc ohol? 2-4 times a month 02/11/2022 Q2: How many drinks containi ng alcohol do you have on a typical day when you are drinking? 3 or 4 02/11/2022 Q3: How often do you have si x or more drinks on one occasion? Never 02/11/2022 Overall Financial Resource Strain (CARDIA) Answe r Date Recorded How hard is it for you to pa y for the very basics like food, housing, medical care, and heating? Not hard at all 02/12/2022 Hunger Vital Sign Answer Date Recorded Within [...] place to sleep or slept in a nursing home (including now)? No 02/12/2022 Sex and Gender Information Value Date Recorded Sex Assigned at Not on file Legal Sex Male 6:15 PM EDT Gender Identity Not on file Sexual Orientation Not on file documented as of this encounter Plan of Treatment Not on file documented as of this encounter Visit Diagnoses Not on filedocumented in this encounter Additional Health Concerns Infection Onset Date Last Indicated Resolved Time COVID (rule out) 06/21/2022 06/21/2022 06/24/2022 3:15 PM EST Influenza 06/21/2022 06/21/2022 07/21/2022 9:08 PM EST C.difficile (rule out) 10/14/2022 10/15/202210/19 9:08 PM EST documented as of this encounter Care Teams Portrait Studio Photographer Relationship Specialty Start Date End Date Luisa Lewis APRN PCP - General Nurse Practitioner 06/21/22 documented as of this encounter
--- OUTSIDE RECORDS SUMMARY | 2025-03-06 01:06 | XMS_ITS | Clinical Summary ---
[facility] Address [address] [place] [address] Care Team Providers Care Outpatient Program Coordinator Name Role Phone Luisa Lweis APRN Primary Care Provider + [phone] Allergies No known active allergies Medications spironolactone (ALDACTONE) 25 MG tablet TAKE 1 TABLET BY MOUTH EVERY DAY FOR SWELLING 02/22/20 22 Active rosuvastatin (CRESTOR) 10 MG tablet Take 10 mg by mouth every night at bedtime. 02/22/20 22 Active ProAir HFA 108 (90 Base) MCG/ACT inhaler INHALE 2 PUFFS INTO THE LUNGS EVERY 4 HOURS NEEDED FOR 30 DAYS 12/12/19 22 Active rivaroxaban (XARELTO) 20 MG tabletIndications:A trial Fibrillation - requiring full anticoagulation Take 1 tablet by mouth Daily Indications: Atrial Fibrillation 30 tablet 3 04/18/20 22 Active cloNIDine (CATAPRES) 0.1 MG tablet Take 1 tablet by mouth Daily As Needed for High Blood Pressure. Active rivaroxaban (XARELTO) 20 MG tablet Take 1 tablet by mouth Daily. States changed to 15mg Active guaiFENesin (MUCINEX) 600 MG 12 hr tablet Take 2 tablets by mouth 2 (Two) Times a Day. Active Fluticasone-Salmete rol (Advair Diskus) 100-50 MCG/ACT DISKUS Inhale 1 puff 2 (Two) Times a Day. 1 each 06/23/20 22 Active Additional Information Patient not taking.Reported on 05/05/2023 nicotine (NICODERM CQ) 21 MG/24HR patch Place 1 patch on the skin as directed by provider Daily. 10 each 06/24/20 22 Active Additional Information Patient not taking.Reported on 05/05/2023 furosemide (LASIX) 20 MG tablet Take 1 tablet by mouth 2 (Two) Times a Day. Active lansoprazole (PREVACID) 15 MG capsule Take 15 mg by mouth 2 (Two) Times a Day. Active ondansetron (ZOFRAN) 4 MG tabletIndications:N ausea TAKE ONE TABLET BY MOUTH EVERY 8 HOURS NEEDED FOR NAUSEA AND VOMITING 30 tablet 1 11/19/19 23 Active potassium chloride (MICRO-K) 8 MEQ CR capsule Take 10 mEq by mouth Daily. Active Diclofenac Sodium (VOLTAREN) 1 % gel gel APPLY TWO grams TOPICALLY FOUR TIMES DAILY NEEDED 01/21/20 23 Active famotidine (PEPCID) 20 MG tablet TAKE ONE TABLET BY MOUTH TWICE DAILY FOR heartburn 05/01/20 23 Active oxyCODONE (ROXICODONE) 5 MG immediate release tablet Take 1 tablet by mouth Every 12 (Twelve) Hours. Active potassium chloride (MICRO-K) 10 MEQ CR capsule TAKE ONE CAPSULE BY MOUTH NEEDED with lasix 04/30/20 23 Active rivaroxaban (XARELTO) 20 MG tablet Take 1 tablet by mouth Daily. 30 tablet 3 08/05/20 23 Active Creon [id number] units capsule delayed-release particles capsuleIndications: Exocrine pancreatic insufficiency TAKE ONE CAPSULE BY MOUTH THREE TIMES DAILY WITH MEALS 180 capsule 1 12/19/19 24 Active Xarelto 20 MG tablet TAKE ONE TABLET BY MOUTH ONCE A DAY 30 tablet 01/15/20 24 Active Active Problems Problem Noted Date Diagnosed Date Diarrhea 10/14/2022 Rectal bleeding 10/14/2022 Cirrhosis of liver without ascites 10/14/2022 Thrombocytopenia 10/14/2022 Lower abdominal pain 10/14/2022 Gastroesophageal reflux disease 10/14/2022 Nausea 10/14/2022 Fatty (change of) liver, not elsewhere classifie d 10/14/2022 Class 3 severe obesity due t o excess calories with serious comorbidity and body mass index (BMI) of 40.0 to 44.9 in adult 10/14/2022 Personal history of colonic polyps 10/14/2022 Overview (05/18/2024): REPLACING DXS THAT WERE INACTIVATED AFTER THE 05/18 REGULATORY UPDATE Benign prostatic hyperplasia without urinary obs truction 10/14/2022 Low back pain 10/14/2022 Lumbosacral spondylosis without myelopathy 10/14 Pain in right knee 10/14/2022 Influenza A 06/22/2022 Acute respiratory failure with hypoxia Numbness and tingling in left hand 02/11/2022 Amputation, below knee, unilateral, traumatic Alcohol abuse 11/30/2015 Other specified anemias 11/30/2015 Overview (10/14/2022): IMO November 2021 Gastrointestinal hemorrhage 11/30/2015 Immunizations Immunization Administration Dates Next Due COVID-19 (RYAN) 11/22/2020 COVID-19 (MODERNA) Monovalent Original Booster 1 09/08/2020 Hepatitis A 04/22/2018 Hepatitis B 2 Dose Vaccine Heplisav-B 05/18/2013 Family History Medical History Relation Name Comments No Known Problems Brother No Known Problems Father No Known Problems Maternal Grandfather No Known Problems Maternal Grandmother Breast cancer Mother Heart disease Other Family No Known Problems Paternal Grandfather Diabetes Paternal Grandmother Dementia Sister Relation Name Status Comments Brother Alive Father Maternal Grandfather Maternal Grandmother Mother Other Family Paternal Grandfather Paternal Grandmother Sister Social History Tobacco Use Types Packs/Day Years [...] on file Sexual Orientation Not on file Last Filed Vital Signs Vital Sign Reading Time Taken Comments Blood Pressure 130/90 05/05/2023 4:59 PM EDT Pulse 97 05/05/2023 4:59 PM EDT Temperature 37 C (98.6 F) 05/05/2023 4:59 PM EDT Respiratory Rate 20 08/25/2022 10:30 PM EST Oxygen Saturation 90% 05/05/2023 4:59 PM EDT Inhaled Oxygen Concentration - - Weight 126 kg (278 lb) 05/05/2023 4:59 PM EDT Height 177.8 cm (5' 10 ) 05/05/2023 4:59 PM EDT Body Mass Index 39.89 05/05/2023 4:59 PM EDT Plan of Treatment Health Maintenance Due Date Last Done Comments Pneumococcal Vaccine 50+ (1 of 2 - PCV) 1977 TDAP/TD VACCINES (1 - Tdap) 1977 COLOGUARD 2003 COLON CANCER SCREENING [address] COLONOGRAPHY 2003 FECAL OCCULT BLOOD TEST 2003 FIT Testing (1 year) 2003 ZOSTER VACCINE (1 of 2) 2008 Hepatitis B (2 of 2 - CpG ri sk 2-dose series) 06/15/2013 05/18/2013 ANNUAL WELLNESS VISIT 11/27/2016 LIPID PANEL 02/11/2023 02/11/2022 COVID-19 Vaccine (3 - 2023-2 5 season) 2024 07/09/2021, 11/22/2020 INFLUENZA VACCINE 05/18/2025 COLONOSCOPY 09/13/2031 09/13/2021, 08/19, 09/11/2021 COLORECTAL CANCER SCREENING 09/13/2031 HEPATITIS C SCREENING Completed 10/22/2022 , 10/22/2022, 10/11/2016, Additional history exists AAA SCREEN ONCE Completed 03/18/2023, 08/0 08/2022, 11/22/2022, Additional history exists Procedures Procedure Name Priority Date/Time Associated Diagnosis Comments HEPATITIS C RNA, QUANTITATIVE, PCR (GRAPH) Routine 10/22/2022 2:29 PM EST Cirrhosis of liver without ascites, unspecified hepatic cirrhosis type Thrombocytopenia CT ABDOMEN PELVIS WO CONTRAST STAT 08/25/2022 9:09 PM EST LIPID PANEL Routine 02/11/2022 6:07 AM EDT SCANNED - COLONOSCOPY 09/13/2021 from Last 3 Months or Most Recently Relevant to Health Maintenance Results * Hepatitis C RNA, Quantitative, PCR (graph) (10/22/2022 2:29 PM EST) Pathologist [facility] [place] Hepatitis C Quantitation HCV Not Detected IU/mL 10/24/2022 11:11 AM EST [facility] Test Information Comment 10/25/19 11:11 AM EST [facility] Comment:The quantitative ran ge of this assay is 15 IU/mL to 100 million IU/mL. Blood Venipuncture / Unknown 10/22/2022 2:29 PM EST 10/22/2022 3:22 PM EST Narrative [facility] - 10/24/2022 11:11 AM EST Performed at: [address] [place] [id number] Loft Worker Head: Monserrat Pierre MD, Phone: [phone] Simona Kaplan APRN LAB BLOOD ORDERABLES Final Result Performing Organization Address City/State/[facility] Co de Phone Number [facility] [address] [place] [address], * CT Abdomen Pelvis Without Contrast (08/25/2022 9:09 PM EST) Anatomical Region Laterality Modality Abdomen, Pelvis N/A Computed Tomogra phy 08/25/2022 10:1 3 PM EST Impressions 08/25/2022 10:13 PM EST No acute findings in the abdomen and pelvis to account for patient's symptoms. Authenticated and Narrative 08/25/2022 10:13 PM EST FINAL REPORT TECHNIQUE: Axial CT images were performed from the lung bases through the symphysis pubis without IV contrast. This study was performed with techniques to keep radiation doses as low as reasonably achievable (ALARA). Individualized dose reduction techniques using automated exposure control or adjustment of mA and/or kV according to the patient's size were employed. CLINICAL HISTORY: mid abdominal pain distended FINDINGS: Lack of intravenous contrast limits evaluation of solid abdominal and pelvic organs. LOWER CHEST: The heart is normal size. The lung bases are clear. ABDOMEN/PELVIS: Liver, gallbladder and bile ducts: There is cirrhosis. There has been a prior cholecystectomy. There is no definite biliary duct dilatation. Adrenal glands: The adrenal glands are morphologically unremarkable without suspicious lesion. Kidneys, ureter and urinary bladder: There are bilateral nonobstructing kidney stones. No hydronephrosis. Urinary bladder is unremarkable. Spleen: The spleen is normal size. Pancreas: The pancreas is grossly unremarkable. GI systems and mesentery: There are small esophageal varices. No evidence of bowel obstruction. The appendix is visualized and unremarkable in appearance. No significant mesenteric inflammation. Lymph nodes: No definite pathologically enlarged abdominal or pelvic lymph nodes present within the limits of this noncontrast enhanced exam. Vessels: The abdominal aorta is normal in caliber. The inferior vena cava is unremarkable. Peritoneum: No free intraperitoneal fluid or pneumoperitoneum. Pelvic viscera: No acute findings. Body wall: No body wall contusion. Bones: No acute fracture. Procedure Note Hermes Estrada MD - 08/25/2022 FINAL REPORT TECHNIQUE: Axial CT images were performed from the lung bases through the symphysis pubis without IV contrast. This study was performed with techniques to keep radiation doses as low as reasonably achievable (ALARA). Individualized dose reduction techniques using automated exposure control or adjustment of mA and/or kV according to the patient's size were employed. CLINICAL HISTORY: mid abdominal pain distended FINDINGS: Lack of intravenous contrast limits evaluation of solid abdominal and pelvic organs. LOWER CHEST: The heart is normal size. The lung bases are clear. ABDOMEN/PELVIS: Liver, gallbladder and bile ducts: There is cirrhosis. There has been a prior cholecystectomy. There is no definite biliary duct dilatation. Adrenal glands: The adrenal glands are morphologically unremarkable without suspicious lesion. Kidneys, ureter and urinary bladder: There are bilateral nonobstructing kidney stones. No hydronephrosis. Urinary bladder is unremarkable. Spleen: The spleen is normal size. Pancreas: The pancreas is grossly unremarkable. GI systems and mesentery: There are small esophageal varices. No evidence of bowel obstruction. The appendix is visualized and unremarkable in appearance. No significant mesenteric inflammation. Lymph nodes: No definite pathologically enlarged abdominal or pelvic lymph nodes present within the limits of this noncontrast enhanced exam. Vessels: The abdominal aorta is normal in caliber. The inferior vena cava is unremarkable. Peritoneum: No free intraperitoneal fluid or pneumoperitoneum. Pelvic viscera: No acute findings. Body wall: No body wall contusion. Bones: No acute fracture. IMPRESSION: No acute findings in the abdomen and pelvis to account for patient's symptoms. Authenticated and Jordan Shukla Jr., KACIE IMG CT ORDERABLES Fin al Result * (ABNORMAL) Lipid Panel (02/11/2022 6:07 AM EDT) Pathologist [facility] [place] Total Cholesterol 123 0 - 200 mg/dL 02/11/2022 7:21 AM EDT [facility] Triglycerides 42 0 - 150 mg/dL 02/11/2022 7:21 AM EDT [facility] HDL Cholesterol 39(L) 40 - 60 mg/dL 02/11/2022 7:21 AM EDT [facility] LDL Cholesterol 74 0 - 100 mg/dL 02/11/2022 7:21 AM EDT [facility] VLDL Cholesterol 10 5 - 40 mg/dL 02/11/2022 7:21 AM EDT [facility] LDL/HDL Ratio 1.94 02/11/2022 7:21 AM EDT [facility] Blood Venipuncture / Unknown 02/11/2022 6:07 AM EDT 02/11/2022 7:01 AM EDT [facility] - 02/11/2022 7:21 AM EDT Cholesterol Reference Ranges (U.S. Department of Health and Human Services ATP III Classifications) Desirable <200 mg/dL Borderline High 200-239 mg/dL High Risk >240 mg/dL Triglyceride Reference Ranges (U.S. Department of Health and Human Services ATP III Classifications) Normal <150 mg/dL Borderline High 150-199 mg/dL High 200-499 mg/dL Very High >500 mg/dL HDL Reference Ranges (U.S. Department of Health and Human Services ATP III Classifications) Low <40 mg/dl (major risk factor for CHD) High >60 mg/dl ('negative' risk factor for CHD) LDL Reference Ranges (U.S. Department of Health and Human Services ATP III Classifications) Optimal <100 mg/dL Near Optimal 100-129 mg/dL Borderline High 130-159 mg/dL High 160-189 mg/dL Very High >189 mg/dL Balwinder Balderas Jr., MD LAB BLOOD ORDERABLES Shalonda lobato Result [facility]
[address] [id number], * SCANNED - COLONOSCOPY (09/13/2021) Claus Payne MD CHART REVIEW TABS Final Resu lt from Last 3 Months or Most Recently Relevant to Health Maintenance Insurance [employer] [place] [employer] MEDICARE ADVANTAGE Advance Directives * CPR (Attempt to Resuscitate) (Latest Code Status on File) Date Activated Date Inactivated Comments 06/21/2022 8:13 AM 06/23/2022 4:03 PM Question Answer Comments Code Status (Patient has no pulse and is not breathing): CPR (Attempt to Resuscitate) Medical Interventions (Patie nt has pulse or is breathing): Full Support Level Of Support Discussed With: Patient * CPR (Attempt to Resuscitate) Date Activated Date Inactivated Comments 02/11/2022 4:06 AM 02/12/2022 12:23 PM Question Answer Comments Code Status (Patient has no pulse and is not breathing): CPR (Attempt to Resuscitate) Medical Interventions (Patie nt has pulse or is breathing): Full Support Care Teams Outpatient Program Coordinator Relationship Specialty Start Date End Date Luisa Lewis, STAPLE CUTTER PCP - General Nurse Practitioner 06/21/22
[2025-03-06] MEDS: ACETAMINOPHEN 500MG TAB 1000 MG PO (01:14)
[2025-03-06] MEDS: KETOROLAC 30MG/ML VIAL 15 MG IV (01:14)
[2025-03-06 01:39] VITALS: BP 125/73; PULSE 90; RESP 16; TEMP 36.6; O2SAT 92
== END 2025-03-06 01:46 | disposition home or self-care (01) ==
PROVIDERS: Emergency Provider Emergency Medicine; PCP Nurse Practitioner Family
DX: R10.9 Unspecified abdominal pain (principal); K46.9 Unspecified abdominal hernia without obstruction or gangrene; F17.200 Nicotine dependence, unspecified, uncomplicated
CPT/HCPCS: 96374; 99283; J1885

== ENCOUNTER 2025-03-10 14:24 | Outpatient (CLI) | payer MEDICARE, MEDICAID, SELFPAY ==
--- OUTSIDE RECORDS SUMMARY | 2015-06-23 09:40 | XMS_ITS | Encounter Summary ---
Author [facility] Address [address] [place] [address] Care Team Providers Care Cone Chocolate Dipper Name Role Phone Elder, Ewa Llanes APRN Primary Care Provider [phone] Encounter Details Date Type Department Care Team (Late st Contact Info) Description 06/23/2015 7:40 AM [facility] [address] [place] [address] Social History Tobacco Use Types Packs/Day Years [...] place to sleep or slept in a jail (including now)? No 02/12/2022 Abuse Screen Answer [...] HEPATIC FUNCTION PANEL Today 06/23/2015 3:10 PM CODING AUDITOR documented in this encounter Results * (ABNORMAL) Hepatic function panel (06/23/2015 3:10 PM CODING AUDITOR) Total Protein 7.3 6.3 - 8.6 gm/dl 06/23/2015 3:55 PM CODING AUDITOR [facility] Albumin 3.4 3.4 - 4.8 gm/dl 06/23/2015 3:55 PM [facility] Bilirubin, Direct 0.0 0.0 - 0.3 mg/dl 06/23/2015 3:55 PM [facility] Total Bilirubin 1.0 0.2 - 1.3 mg/dl 06/23/2015 3:55 PM [facility] Alkaline Phosphatase 88 38 - 126 U/L 06/23/2015 3:55 PM [facility] AST (SGOT) 208(H) 17 - 59 U/L 06/23/2015 3:55 PM [facility] ALT (SGPT) 224(H) 21 - 72 U/L 06/23/2015 3:55 PM [facility] Blood specimen (specimen) 06/23/2015 3:10 PM CODING AUDITOR 06/23/2015 3:42 PM CODING AUDITOR Narrative [facility] - 06/23/2015 3:55 PM CODING AUDITOR Specimen Type : BloodPLEASE FAX RESULTS TO [phone] us Miguel Angel Onofre MD LAB BLOOD ORDERABLES Final Res ult [facility]
[address] [place] [address], documented in this encounter Visit Diagnoses Not on filedocumented in this encounter Additional Health Concerns Infection Onset Date Last Indicated Resolved Time COVID (rule out) 02/10/2022 02/10/2022 02/11/2022 9:17 AM EDT COVID (rule out) 06/21/2022 06/21/2022 06/24/2022 3:15 PM EST Influenza 06/21/2022 06/21/2022 07/21/2022 9:08 PM EST C.difficile (rule out) 10/14/2022 10/15/202210/19 9:08 PM EST documented as of this encounter Care Teams Cone Chocolate Dipper Relationship Specialty Start Date End Date Ewa Hou APRN [address] [place] [address] PCP - General 03/30/15 06/20/22 documented as of this encounter
--- OUTSIDE RECORDS SUMMARY | 2015-11-15 08:04 | XMS_ITS | Encounter Summary ---
Author Organization [facility] Address [address] [place] [address] Care Team Providers Care Dyeing Machine Back Tender Name Role Phone Elder, Ewa Llanes APRN Primary Care Provider [phone] Encounter Details Date Type Department Care Team (Late st Contact Info) Description 11/15/2015 7:04 AM CDT Hospital Encounter [facility] Levar Stoner MD [address] [place] [address] [address] [place] [address] Social History Tobacco Use Types [...] place to sleep or slept in a assisted (including now)? No 02/12/2022 Abuse Screen Answer [...] documented as of this encounter Care Teams Dyeing Machine Back Tender Relationship Specialty Start Date End Date Ewa Hou APRN [address] [place] [address] PCP - General 03/30/15 06/20/22 documented as of this encounter
--- OUTSIDE RECORDS SUMMARY | 2015-11-20 14:05 | XMS_ITS | Encounter Summary ---
Author [facility] Address [address] [place] [address] Care Team Providers Care Upper Inspector Name Role Phone Elder, Ewa Llanes APRN Primary Care Provider [phone] Encounter Details Date Type Department Care Team (Late st Contact Info) Description 11/20/2015 1:05 PM CDT Hospital Encounter [facility] Levar Stoner MD [address] [place] [address] [address] [place] [address] Social History Tobacco Use Types [...] documented as of this encounter Care Teams Upper Inspector Relationship Specialty Start Date End Date Ewa Hou APRN [address] [place] [address] PCP - General 03/30/15 06/20/22 documented as of this encounter
--- OUTSIDE RECORDS SUMMARY | 2015-11-22 08:18 | XMS_ITS | Encounter Summary ---
Author Organization [facility] Address [address] [place] [address] Care Team Providers Care Typing Element Machine Operator Name Role Phone Elder, Ewa Llanes APRN Primary Care Provider [phone] Encounter Details Date Type Department Care Team (Late st Contact Info) Description 11/22/2015 7:18 AM CDT Hospital Encounter [facility] Levar Stoner MD [address] [place] [address] [address] [place] [address] Social History Tobacco Use Types [...] place to sleep or slept in a [facility] (including now)? No 02/12/2022 Abuse Screen Answer [...] documented as of this encounter Care Teams Typing Element Machine Operator Relationship Specialty Start Date End Date Ewa Hou APRN [address] [place] [address] PCP - General 03/30/15 06/20/22 documented as of this encounter
--- OUTSIDE RECORDS SUMMARY | 2016-01-04 09:27 | XMS_ITS | Encounter Summary ---
Author Organization [facility] Address [address] [place] [address] Care Team Providers Care School Resource Officer Name Role Phone Elder, Ewa Llanes APRN Primary Care Provider [phone] Encounter Details Date Type Department Care Team (Late st Contact Info) Description 01/04/2016 8:27 AM CDT Hospital Encounter [facility] Rl Farmer, KACIE [address] [place] [address] [address] [place] [address] Social History Tobacco Use Types [...] place to sleep or slept in a halfway (including now)? No 02/12/2022 Abuse Screen Answer [...] documented as of this encounter Care Teams School Resource Officer Relationship Specialty Start Date End Date Ewa Hou APRN [address] [place] [address] PCP - General 03/30/15 06/20/22 documented as of this encounter
--- OUTSIDE RECORDS SUMMARY | 2016-01-04 11:00 | XMS_ITS | Encounter Summary ---
[facility] Organization [facility] Address [address] [place] [address] Care Team Providers Care Netezza Architect Name Role Phone Elder, Ewa Llanes APRN Primary Care Provider [phone] Encounter Details Date Type Department Care Team (Late st Contact Info) Description 01/04/2016 10:00 AM CDT Hospital Encounter [facility] GASTRO[facility]P[address] MIKE [address]Z [address] [place] [phone] Levar Stoner MD [address] [place] [address] [address] [place] [address] Social History Tobacco Use Types [...] documented as of this encounter Care Teams Netezza Architect Relationship Specialty Start Date End Date Ewa Hou APRN [address] [place] [address] PCP - General 03/30/15 06/20/22 documented as of this encounter
--- OUTSIDE RECORDS SUMMARY | 2025-03-10 14:27 | XMS_ITS | Encounter Summary ---
[facility] Organization [facility] Address [address] [place] [address] Care Team Providers Care Pensionholder Information Clerk Name Role Phone Luisa Lewis APRN Primary Care Provider + [phone] Encounter Details Date Type Department Care Team (Late st Contact Info) Description 02/12/2022 Retail Pharmacy Consultation [facility] [place] [address] [place] [address] Seda Vasquez [facility] [address] [place] [address] Social History Tobacco Use Types Packs/Day Years [...] in a detention (including now)? No 02/12/2022 Sex and Gender [...] documented as of this encounter Care Teams Pensionholder Information Clerk Relationship Specialty Start Date End Date Luisa Lewis APRN PCP - General Nurse Practitioner 06/21/22 documented as of this encounter
--- OUTSIDE RECORDS SUMMARY | 2025-03-10 14:28 | XMS_ITS | Clinical Summary ---
[facility] Address [address] [place] [address] Care Team Providers Care Evening Or Night Nurse Supervisor Name Role Phone Luisa Lewis APRN Primary Care Provider + [phone] Allergies No known active allergies Medications spironolactone [...] 30 tablet 3 08/05/20 23 Active Creon [id number] units capsule delayed-release particles capsuleIndications: Exocrine pancreatic [...] place to sleep or slept in a longterm (including now)? No 02/12/2022 Abuse Screen Answer [...] PCR (graph) (10/22/2022 2:29 PM EST) Pathologist [facility] Hepatitis C Quantitation HCV Not Detected IU/mL 10/24/2022 11:11 AM EST [facility] Test Information Comment 10/25/19 11:11 AM EST [facility] Comment:The quantitative ran ge of this assay is 15 IU/mL to 100 million IU/mL. Blood Venipuncture / Unknown 10/22/2022 2:29 PM EST 10/22/2022 3:22 PM EST Narrative [facility] - 10/24/2022 11:11 AM EST Performed at: [address] [place] [id number] Noc Engineer: Monserrat Pierre MD, Phone: [phone] Simona Kaplan APRN LAB BLOOD ORDERABLES Final Result Performing Organization Address City/State/[facility] Co de Phone Number [facility] [address] [place] [address], * CT Abdomen Pelvis Without Contrast (08/25/2022 [...] Lipid Panel (02/11/2022 6:07 AM EDT) Pathologist [facility] Total Cholesterol 123 0 - 200 mg/dL 02/11/2022 7:21 AM EDT [facility] Triglycerides 42 0 - 150 mg/dL 02/11/2022 7:21 AM EDT [facility] HDL Cholesterol 39(L) 40 - 60 mg/dL 02/11/2022 7:21 AM EDT [facility] LDL Cholesterol 74 0 - 100 mg/dL 02/11/2022 7:21 AM EDT [facility] VLDL Cholesterol 10 5 - 40 mg/dL 02/11/2022 7:21 AM EDT [facility] LDL/HDL Ratio 1.94 02/11/2022 7:21 AM EDT [facility] Blood Venipuncture / Unknown 02/11/2022 6:07 AM EDT 02/11/2022 7:01 AM EDT [facility] - 02/11/2022 7:21 AM EDT [...] MD LAB BLOOD ORDERABLES Shalonda lobato Result [facility]
[address] [id number], * SCANNED - COLONOSCOPY (09/13/2021) Claus Payne [...] or is breathing): Full Support Care Teams Evening Or Night Nurse Supervisor Relationship Specialty Start Date End Date Luisa Lewis, COMPLAINT INSPECTOR PCP - General Nurse Practitioner 06/21/22
[2025-03-10 14:54] LABS: Blood Urea Nitrogen 19 mg/dl (9-20); Creatinine,Serum 0.90 mg/dl (0.66-1.25); Estimated Glomerular Filt Rate 84 ml/min (>60); GFR (African American) 102 ML/MIN (>60)
== END 2025-03-10 23:59 | disposition home or self-care (01) ==
LOC: LAB 14:24
PROVIDERS: PCP Nurse Practitioner Family; Visit Provider Surgery
DX: K46.9 Unspecified abdominal hernia without obstruction or gangrene (principal)
CPT/HCPCS: 36415; 82565; 84520

== ENCOUNTER 2025-04-22 12:15 | Outpatient (CLI) | payer MEDICARE, MEDICAID, SELFPAY ==
--- OUTSIDE RECORDS SUMMARY | 2015-06-23 09:40 | XMS_ITS | Encounter Summary ---
[facility] Address [address] [place] [address] Care Team Providers Care Borderer Name Role Phone Elder, Ewa Llanes APRN Primary Care Provider [phone] Encounter Details Date Type Department Care Team (Late st Contact Info) Description 06/23/2015 7:40 AM [facility] [address] [place] [address] Social History Tobacco Use Types Packs/Day Years [...] place to sleep or slept in a chcf (including now)? No 02/12/2022 Abuse Screen Answer [...] HEPATIC FUNCTION PANEL Today 06/23/2015 3:10 PM GROUP MANAGER documented in this encounter Results * (ABNORMAL) Hepatic function panel (06/23/2015 3:10 PM GROUP MANAGER) Total Protein 7.3 6.3 - 8.6 gm/dl 06/23/2015 3:55 PM GROUP MANAGER [facility] Albumin 3.4 3.4 - 4.8 gm/dl 06/23/2015 3:55 PM [facility] Bilirubin, Direct 0.0 0.0 - 0.3 mg/dl 06/23/2015 3:55 PM [facility] Total Bilirubin 1.0 0.2 - 1.3 mg/dl 06/23/2015 3:55 PM [facility] Alkaline Phosphatase 88 38 - 126 U/L 06/23/2015 3:55 PM [facility] AST (SGOT) 208(H) 17 - 59 U/L 06/23/2015 3:55 PM [facility] ALT (SGPT) 224(H) 21 - 72 U/L 06/23/2015 3:55 PM [facility] Blood specimen (specimen) 06/23/2015 3:10 PM GROUP MANAGER 06/23/2015 3:42 PM GROUP MANAGER Narrative [facility] - 06/23/2015 3:55 PM GROUP MANAGER Specimen Type : BloodPLEASE FAX RESULTS TO [phone] us Miguel Angel Onofre MD LAB BLOOD ORDERABLES Final Res ult [facility]
[address] [place] [address], documented in this encounter Visit Diagnoses Not on filedocumented in this encounter Additional Health Concerns Infection Onset Date Last Indicated Resolved Time COVID (rule out) 02/10/2022 02/10/2022 02/11/2022 9:17 AM EDT COVID (rule out) 06/21/2022 06/21/2022 06/24/2022 3:15 PM EST Influenza 06/21/2022 06/21/2022 07/21/2022 9:08 PM EST C.difficile (rule out) 10/14/2022 10/15/202210/19 9:08 PM EST documented as of this encounter Care Teams Borderer Relationship Specialty Start Date End Date Ewa Hou APRN [address] [place] [address] PCP - General 03/30/15 06/20/22 documented as of this encounter
--- OUTSIDE RECORDS SUMMARY | 2015-11-15 08:04 | XMS_ITS | Encounter Summary ---
Author Organization [facility] Address [address] [place] [address] Care Team Providers Care Medicaid Biller Name Role Phone Elder, Ewa Llanes APRN Primary Care Provider [phone] Encounter Details Date Type Department Care Team (Late st Contact Info) Description 11/15/2015 7:04 AM CDT Hospital Encounter [facility] Levar Stoner MD [address] [place] [address] [address] [place] [address] Social History Tobacco Use Types [...] place to sleep or slept in a senior care (including now)? No 02/12/2022 Abuse Screen Answer [...] documented as of this encounter Care Teams Medicaid Biller Relationship Specialty Start Date End Date Ewa Hou APRN [address] [place] [address] PCP - General 03/30/15 06/20/22 documented as of this encounter
--- OUTSIDE RECORDS SUMMARY | 2015-11-20 14:05 | XMS_ITS | Encounter Summary ---
[facility] Address [address] [place] [address] Care Team Providers Care Registered Nurse Supervisor Name Role Phone Elder, Ewa Llanes APRN Primary Care Provider [phone] Encounter Details Date Type Department Care Team (Late st Contact Info) Description 11/20/2015 1:05 PM CDT Hospital Encounter [facility] Levar Stoner MD [address] [place] [address] [address] [place] [address] Social History Tobacco Use Types [...] place to sleep or slept in a half-way (including now)? No 02/12/2022 Abuse Screen Answer [...] documented as of this encounter Care Teams Registered Nurse Supervisor Relationship Specialty Start Date End Date Ewa Hou APRN [address] [place] [address] PCP - General 03/30/15 06/20/22 documented as of this encounter
--- OUTSIDE RECORDS SUMMARY | 2015-11-22 08:18 | XMS_ITS | Encounter Summary ---
Author Organization [facility] Address [address] [place] [address] Care Team Providers Care Parachute Supervisor Name Role Phone Elder, Ewa Llanes APRN Primary Care Provider [phone] Encounter Details Date Type Department Care Team (Late st Contact Info) Description 11/22/2015 7:18 AM CDT Hospital Encounter [facility] Levar Stoner MD [address] [place] [address] [address] [place] [address] Social History Tobacco Use Types [...] documented as of this encounter Care Teams Parachute Supervisor Relationship Specialty Start Date End Date Ewa Hou APRN [address] [place] [address] PCP - General 03/30/15 06/20/22 documented as of this encounter
--- OUTSIDE RECORDS SUMMARY | 2016-01-04 09:27 | XMS_ITS | Encounter Summary ---
Author Organization [facility] Address [address] [place] [address] Care Team Providers Care Seismograph Operator Helper Name Role Phone Elder, Ewa Llanes APRN Primary Care Provider [phone] Encounter Details Date Type Department Care Team (Late st Contact Info) Description 01/04/2016 8:27 AM CDT Hospital Encounter [facility] Rl Farmer, KACIE [address] [place] [address] [address] [place] [address] Social History Tobacco Use Types [...] place to sleep or slept in a long-term (including now)? No 02/12/2022 Abuse Screen Answer [...] documented as of this encounter Care Teams Seismograph Operator Helper Relationship Specialty Start Date End Date Ewa Hou APRN [address] [place] [address] PCP - General 03/30/15 06/20/22 documented as of this encounter
--- OUTSIDE RECORDS SUMMARY | 2016-01-04 11:00 | XMS_ITS | Encounter Summary ---
[facility] Address [address] [place] [address] Care Team Providers Care Environmental Compliance Specialist Name Role Phone Elder, Ewa Llanes APRN Primary Care Provider [phone] Encounter Details Date Type Department Care Team (Late st Contact Info) Description 01/04/2016 10:00 AM CDT Hospital Encounter [facility] GASTROENTEROLOG[facility] MIKE HDZ [address] [place] [phone] Levar Stoner MD [address] [place] [address] [address] [place] [address] Social History Tobacco Use Types [...] place to sleep or slept in a fpc (including now)? No 02/12/2022 Abuse Screen Answer [...] documented as of this encounter Care Teams Environmental Compliance Specialist Relationship Specialty Start Date End Date Ewa Hou APRN [address] [place] [address] PCP - General 03/30/15 06/20/22 documented as of this encounter
--- OUTSIDE RECORDS SUMMARY | 2025-03-10 09:00 | XMS_ITS ---
Author Organization [facility] Address [address] [place] [address] Care Team Providers Care Rigger Chief Name Role Phone Rl Arrington II Unavailable Luisa Hatch Unavailable Unavailable REASON FOR VISIT RFA FIDENCIO L3, L4, L5 w/sed Encounters Encounter Location Date Provider Diagnosis [facility] [address] [place] [address] 03/10/2025 Rl Arrington Other spondylosis with radiculopathy, lumbar region M47.26 Assessments Encounter Date Diagnosis (ICD Code) Assessment Notes Treatment Notes Treatment Clinical Notes Section Notes 03/10/2025 Other spondylosis with radiculopathy, lumbar region (ICD-10 - M47.26) Plan Of Treatment Next Appt Details Provider Name:Rl oliver, 05/27/2025 02:00:00 PM, [address], [address], [place], [address], Progress Notes * Fransisco RIVERADOB:1960 (64 yo M)Acc No.[id number]:03/10/2025 Patient: Fransisco POP Provider: Carlos Arrington II, M.D. :1960 A ge:64 Y S ex:Male Date:03/10/2025 Address:[address] [place] [address] MICHELLE Haro [phone] * * Electronic signature of Srinivasa Arrington II, M.D. on 04/22/2025 at 11:19 AM CDT Sign off status: Pending * Provider: Carlos Arrington II, M.D. Date: 03/10/2025 Generated for [place] ely/Rodna/Shandra on: 04/22/2025 11:19 AM CDT
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
--- OUTSIDE RECORDS SUMMARY | 2025-04-22 12:19 | XMS_ITS | Encounter Summary ---
[facility] Address [address] [place] [address] Care Team Providers Care Textile Machinery Instructor Name Role Phone Luisa Lewis APRN Primary Care Provider + [phone] Encounter Details Date Type Department Care Team (Late st Contact Info) Description 02/12/2022 Retail Pharmacy Consultation [facility] [place] [address] [place] [address] Seda Vasquez [facility] [address] [place] [address] Social History Tobacco Use Types Packs/Day Years [...] in a mcc (including now)? No 02/12/2022 Sex and Gender [...] documented as of this encounter Care Teams Textile Machinery Instructor Relationship Specialty Start Date End Date Luisa Lewis APRN PCP - General Nurse Practitioner 06/21/22 documented as of this encounter
--- OUTSIDE RECORDS SUMMARY | 2025-04-22 12:20 | XMS_ITS | Patient Health Record ---
Author Organization [facility] Address [address] [place] [address] Care Team Providers Care Typecasting Machine Operator Name Role Phone Rl Arrington II Unavailable Luisa Hatch Unavailable Unavailable David Rob Unavailable [phone] Allergies No Known Allergies Results Component Value Reference Range Notes Urine Test ANALYZER Reviewed date:08/09/2024 08:26:39 AM Interpretation: Performing Lab: Notes/Report: Urine Test ANALYZER Reviewed date:06/07/2024 03:32:43 PM Interpretation:+OXY+OPI Performing Lab: Notes/Report: +OXY+OPI Heroin Metabolite (6AM) NEG Amphetamine (AMP) NEG Benzodiazepine (AL) NEG Buprenorphine NEG Cocaine (AKBAR) NEG Hydrocodone (HYD) NEG Methadone (MTD) NEG Opiate (OPI) POS Oxycodone (OXY) POS Urine Test LCMS Definitive Reviewed date:11/17/2024 02:12:55 PM Interpretation:neg all Performing Lab: Notes/Report: neg all Urine Test ANALYZER Reviewed date:08/31/2024 12:18:17 PM [...] Oxycodone (OXY) NEG Urine Test ANALYZER Reviewed date:04/11/2025 03:32:51 PM [...] Oxycodone (OXY) NEG Urine Test ANALYZER Reviewed date:02/14/2025 02:29:27 PM Interpretation:+OXY Performing Lab: Notes/Report: +OXY Heroin Metabolite (6AM) NEG Amphetamine (AMP) NEG Benzodiazepine (AL) NEG Buprenorphine NEG Cocaine (AKBAR) NEG Hydrocodone (HYD) NEG Methadone (MTD) NEG Opiate (OPI) NEG Oxycodone (OXY) POS Reason For Referral Reason [facility] 04/21- Order CT Luzmaria mbar Spine w/o contrast Diagnosis 1 Spondylosis without myelopathy or radiculopathy, lumbar region (M47.816) Referral Organization [facility] Referring Provider First Name Rl Referring Provider Last Name Murphy Referring Provider Speciality Pain Manag ement Referred Provider Specialty Radiology General Notes Ross(MilagroCtrBRENT-Keiry )Cori 04/20/2025 10:56:43 AM > pt stated he would like to go [facility] Darian (Alessandra Gonzalez 04/21/2025 02:22:14 PM > TE sent back to see if she means [facility] in [place]. Referral Priority Routine Medications Medication SIG (Take, Route, Frequency, Duration) [...] Problem Pain of right knee region (finding) (627070606750339 ) Pain in right knee (M25.561) Active confirmed Problem Lumbosacral spondylosis without myelopathy (92366471) Other spondylosis with radiculopathy, lumbar region (M47.26) Active confirmed Problem Lumbosacral spondylosis without myelopathy (40798698) Spondylosis without myelopathy or radiculopathy, lumbar region (M47.816) Active confirmed Problem Long-term current use of drug therapy (177992436) Other chcf (current) drug therapy (Z79.899) Active confirmed Problem Low back pain (964695179) Low back pain, unspecified (M54.50) Active confirmed Vital Signs Heart Rate 67 /min 04/11/2025 Blood pressure diastolic 79 mm Hg 04/11/2025 Height 69 in 04/11/2025 Blood pressure systolic 146 mm Hg 04/11/2025 Weight 275 lbs 04/11/2025 BMI 40.61 kg/m2 04/11/2025 Encounters Encounter Location Date Provider Diagnosis [facility] [address] [place] [address] 04/11/2025 Rl Arrington Other chcf (current) drug therapy Z79.899 ; Spondylosis without myelopathy or radiculopathy, lumbar region M47.816 ; Low back pain, unspecified M54.50 and Pain in right knee M25.561 [facility] [address] [place] [address] 06/07/2024 Rl Arrington Other chcf (current) drug therapy Z79.899 ; Spondylosis without myelopathy or radiculopathy, lumbar region M47.816 ; Low back pain, unspecified M54.50 and Pain in right knee M25.561 [facility] [address] [place] [address] 06/17/2024 Rl Arrington Other spondylosis with radiculopathy, lumbar region M47.26 [facility] [address] [place] [address] 07/06/2024 Rl Arrington Other spondylosis with radiculopathy, lumbar region M47.26 [facility] [address] [place] [address] 07/30/2024 Rl Arrington Other intermediate designer (current) drug therapy Z79.899 ; Spondylosis without myelopathy or radiculopathy, lumbar region M47.816 ; Low back pain, unspecified M54.50 and Pain in right knee M25.561 [facility] [address] [place] [address] 08/05/2024 Rl Arrington Other spondylosis with radiculopathy, lumbar region M47.26 [facility] [address] [place] [address] 08/26/2024 Rl Arrington Other chcf (current) drug therapy Z79.899 ; Spondylosis without myelopathy or radiculopathy, lumbar region M47.816 ; Low back pain, unspecified M54.50 and Pain in right knee M25.561 [facility] [address] [place] [address] 10/21/2024 Rl Arrington Other intermediate designer (current) drug therapy Z79.899 ; Spondylosis without myelopathy or radiculopathy, lumbar region M47.816 ; Low back pain, unspecified M54.50 and Pain in right knee M25.561 [facility] [address] [place] [address] 12/16/2024 Rl Arrington Other chcf (current) drug therapy Z79.899 ; Spondylosis without myelopathy or radiculopathy, lumbar region M47.816 ; Low back pain, unspecified M54.50 and Pain in right knee M25.561 [facility] [address] [place] [address] 02/14/2025 David Rob Other chcf (current) drug therapy Z79.899 ; Spondylosis without myelopathy or radiculopathy, lumbar region M47.816 ; Low back pain, unspecified M54.50 and Pain in right knee M25.561 [facility] [address] [place] [address] 04/11/2025 Rl Arrington Other intermediate designer (current) drug therapy Z79.899 [facility] [address] [place] [address] 04/20/2025 Rl Arrington [facility] [address] [place] [address] 06/07/2024 Rl Arrington Other chcf (current) drug therapy Z79.899 [facility] [address] [place] [address] 06/25/2024 Rl Arrington [facility] [address] [place] [address] 07/26/2024 Rl Arrington [facility] [address] [place] [address] 07/30/2024 Rl Arrington Other chcf (current) drug therapy Z79.899 [facility] [address] [place] [address] 08/26/2024 Rl Arrington Other intermediate designer (current) drug therapy Z79.899 [facility] [address] [place] [address] 10/21/2024 Rl Arrington Other intermediate designer (current) drug therapy Z79.899 [facility] [address] [place] [address] 11/22/2024 Rl Arrington [facility] [address] [place] [address] 12/16/2024 Rl Arrington [facility] [address] [place] [address] 12/20/2024 Rl Arrington Other chcf (current) drug therapy Z79.899 [facility] [address] [place] [address] 02/28/2025 David Rob Assessments Encounter Date Diagnosis (ICD Code) Assessment Notes Treatment Notes Treatment Clinical Notes Section Notes 06/07/2024 Other intermediate designer (current) drug therapy (ICD-10 - Z79.899) 06/17/2024 [...] is high. F/u 2 months. 06/07/2024 Other chcf (current) drug therapy (ICD-10 - Z79.899) 06/07/2024 [...] assessment is high. F/u 2 months. 07/30/2024 Spondylosis without myelopathy or radiculopathy, lumbar [...] risk assessment is high. F/u 2 months. [id number] - Patient reports significant pain and functional [...] MBB at the same levels. 07/30/2024 Other chcf (current) drug therapy (ICD-10 - Z79.899) 07/30/2024 [...] risk assessment is high. F/u 2 months. 43IXG00 - Patient reports significant pain and functional [...] MBB at the same levels. 07/30/2024 Other chcf (current) drug therapy (ICD-10 - Z79.899) 08/05/2024 Other spondylosis with radiculopathy, lumbar region (ICD-10 - M47.26) 08/26/2024 Spondylosis without myelopathy or radiculopathy, lumbar [...] follow up in two months. 08/26/2024 Other chcf (current) drug therapy (ICD-10 - Z79.899) 08/26/2024 [...] follow up in two months. 08/26/2024 Other intermediate designer (current) drug therapy (ICD-10 - Z79.899) 10/21/2024 [...] follow up in two months. 10/21/2024 Other chcf (current) drug therapy (ICD-10 - Z79.899) 10/21/2024 [...] follow up in two months. 10/21/2024 Other chcf (current) drug therapy (ICD-10 - Z79.899) 12/16/2024 Other intermediate designer (current) drug therapy (ICD-10 - Z79.899) 10/21/2024 [...] follow up in two months. 12/20/2024 Other chcf (current) drug therapy (ICD-10 - Z79.899) 02/14/2025 Spondylosis without myelopathy or radiculopathy, lumbar region (ICD-10 - M47.816) February 14, 2025: The patient presents to the [facility] office in [facility] for an audiovisual-telem edicine visit. The patient was evaluated by the medical director and a urine drug screen was obtained as well as vital signs. Portions of the physical examination were assisted by the medical director during the audiovisual-telem edicine visit Review of [...] for repeat RFA bilateral L3-4-5. 02/14/2025 Other intermediate designer (current) drug therapy (ICD-10 - Z79.899) 02/14/2025 1. Refill Oxycodone 5mg TID 2. Continue HEP 3. F/U 2 months February 14, 2025: The patient presents to the [facility] office in [facility] for an audiovisual-telem edicine visit. The patient was evaluated by the medical director and a urine drug screen was obtained as well as vital signs. Portions of the physical examination were assisted by the medical director during the audiovisual-telem edicine visit Review of [...] him for repeat RFA bilateral L3-4-5. 04/11/2025 Other chcf (current) drug therapy (ICD-10 - Z79.899) 04/11/2025 1. Refill Oxycodone 5mg TID 2. Continue HEP 3. F/U 2 months 4. Schedule LESI L4/5, L5/S1 February 14, 2025: The patient presents to the [facility] office in [facility] for an audiovisual-telem edicine visit. The patient was evaluated by the medical director and a urine drug screen was obtained as well as vital signs. Portions of the physical examination were assisted by the medical director during the audiovisual-telem edicine visit Review of [...] with , schedule MARY, refill medications. 04/11/2025 Other intermediate designer (current) drug therapy (ICD-10 - Z79.899) 12/16/2024 [...] Schedule to follow up in two months. 04/11/2025 Spondylosis without myelopathy or radiculopathy, lumbar region (ICD-10 - M47.816) February 14, 2025: The patient presents to the [facility] office in [facility] for an audiovisual-telem edicine visit. The patient was evaluated by the medical director and a urine drug screen was obtained as well as vital signs. Portions of the physical examination were assisted by the medical director during the audiovisual-telem edicine visit Review of [...] will f/u 2 months with , schedule JOSRI, refill medications. 02/14/2025 Low back pain, unspecified (ICD-10 - M54.50) February 14, 2025: The patient presents to the [facility] office in [facility] for an audiovisual-telem edicine visit. The patient was evaluated by the medical director and a urine drug screen was obtained as well as vital signs. Portions of the physical examination were assisted by the medical director during the audiovisual-telem edicine visit Review of [...] risk assessment is high. F/u 2 months. [id number] - Patient reports significant pain and functional [...] assessment is high. F/u 2 months. 06/07/2024 Pain in right knee [...] risk assessment is high. F/u 2 months. 36RAF94 - Patient reports significant pain and functional [...] lumbar MBB at the same levels. 08/26/2024 Pain in right knee (ICD-10 - [...] to follow up in two months. 10/21/2024 Pain in right knee (ICD-10 - [...] 14, 2025: The patient presents to the [facility] office in [facility] for an audiovisual-telem edicine visit. The patient was evaluated by the medical director and a urine drug screen was obtained as well as vital signs. Portions of the physical examination were assisted by the medical director during the audiovisual-telem edicine visit Review of [...] Schedule to follow up in two months. 04/11/2025 Low back pain, unspecified (ICD-10 - M54.50) February 14, 2025: The patient presents to the [facility] office in [facility] for an audiovisual-telem edicine visit. The patient was evaluated by the medical director and a urine drug screen was obtained as well as vital signs. Portions of the physical examination were assisted by the medical director during the audiovisual-telem edicine visit Review of [...] months with , schedule LESI, refill medications. 04/11/2025 Pain in right knee (ICD-10 - M25.561) February 14, 2025: The patient presents to the [facility] office in [facility] for an audiovisual-telem edicine visit. The patient was evaluated by the medical director and a urine drug screen was obtained as well as vital signs. Portions of the physical examination were assisted by the medical director during the audiovisual-telem edicine visit Review of [...] months with , schedule MARY, refill medications. 12/16/2024 Pain in right knee (ICD-10 - [...] Schedule to follow up in two months. Plan Of Treatment Pending Test Test Name Order Date Urine Test LCMS Definitive 04/11/2025 Next Appt Details Provider Name:Rl Von oliver, 05/27/2025 02:00:00 PM, [address], [address], [place], [address], Insurance Providers Payer Name Payer Address Payer Phone Subscriber Number Group Number Insured Name Patient Relationship to Insured Coverage Start Date Coverage End Date [employer] Medicare [address] [place] [phone] [id number] Fransisco Burgos Self - patient is the insured 4 [place] [address] [place] [address] [phone] [id number] Fransisco Burgos Self - patient is the insured 0 [...] [facility] leg unknown [facility] ([facility] 1976 hernia repair at [facility] [place] OP) 20 14 cholecystectomy at [facility] (OP) [address] Ridley in [facility] 1999
--- OUTSIDE RECORDS SUMMARY | 2025-04-22 12:20 | XMS_ITS | Clinical Summary ---
[facility] Address [address] [place] [address] Care Team Providers Care Pin Sorter And Bagger Name Role Phone Luisa Lewis APRN Primary Care Provider + [phone] Allergies No known active allergies Medications spironolactone [...] 30 tablet 3 08/05/20 23 Active Creon 78205-163446 units capsule delayed-release particles capsuleIndications: Exocrine pancreatic [...] series) 06/15/2013 05/18/2013 ANNUAL WELLNESS VISIT 11/27/2016 COVID-19 Vaccine (3 - 2024-2 6 season) 2025 07/09/2021, 11/22/2020 INFLUENZA VACCINE 05/18/2025 COLONOSCOPY 09/13/2031 [...] WO CONTRAST STAT 08/25/2022 9:09 PM EST SCANNED - COLONOSCOPY 09/13/2021 from Last 3 Months or Most Recently Relevant to Health Maintenance Results * Hepatitis C RNA, Quantitative, PCR (graph) (10/22/2022 2:29 PM EST) Pathologist [facility] Hepatitis C Quantitation HCV Not Detected IU/mL 10/24/2022 11:11 AM EST [facility] Test Information Comment 10/25/19 11:11 AM EST [facility] Comment:The quantitative ran ge of this assay is 15 IU/mL to 100 million IU/mL. Blood Venipuncture / Unknown 10/22/2022 2:29 PM EST 10/22/2022 3:22 PM EST Narrative [facility] - 10/24/2022 11:11 AM EST Performed at: [address] [place] [id number] Table Assembler: Monserrat Pierre MD, Phone: [phone] Simona Kaplan APRN LAB BLOOD ORDERABLES Final Result Performing Organization Address City/State/[facility] Co de Phone Number [facility] [address] [place] [address], * CT Abdomen Pelvis Without Contrast (08/25/2022 [...] to account for patient's symptoms. Authenticated and us Jordan Shukla Jr., PA-C IMG CT ORDERABLES Fin al Result * SCANNED - COLONOSCOPY (09/13/2021) Claus Payne [...] or is breathing): Full Support Care Teams Pin Sorter And Bagger Relationship Specialty Start Date End Date Luisa Lewis, KIMMY PCP - General Nurse Practitioner 06/21/22
[2025-04-22 12:47] LABS: Blood Urea Nitrogen 13 mg/dl (9-20); Creatinine,Serum 0.80 mg/dl (0.66-1.25); Estimated Glomerular Filt Rate 97 ml/min (>60); GFR (African American) 117 ML/MIN (>60)
--- NOTE | 2025-04-22 13:00 | CT_ITS ---
FINAL REPORT TECHNIQUE: Thin section axial images are obtained through the abdomen and pelvis after intravenous contrast. Reconstruction images were obtained from the axial data. Exam was performed using dose reduction techniques. This study was performed with techniques to keep radiation doses as low as reasonably achievable (ALARA). Individualized dose reduction techniques using automated exposure control or adjustment of mA and/or kV according to the patient's size were employed. CLINICAL HISTORY: abdominal hernia COMPARISON: 01/31/2025 FINDINGS: LUNG BASES: Lung bases are clear. Heart size is normal. LIVER: The liver is somewhat inhomogeneous and lobular in appearance, consistent with cirrhosis. There are several very small hypervascular foci present within the liver, which are stable since the prior exam. An example is in the left lobe of the liver there is a less than 1 cm hypervascular focus best seen on image #32 of series 2. GALLBLADDER/BILIARY SYSTEM: The gallbladder has been surgically resected. No biliary dilatation. SPLEEN: Unremarkable. PANCREAS: Unremarkable. ADRENALS: Unremarkable. KIDNEYS/URETERS/BLADDER: Bilateral nonobstructing renal stones are present. There is a hypodense right renal lower pole lesion that likely represents a cyst. There is wall thickening of the bladder, that likely represents chronic outlet obstruction. There is a small stone present in the dependent portion of the bladder. GI TRACT: No small bowel obstruction or dilatation. Normal appendix. No acute colon abnormality. PELVIC ORGANS: The prostate is enlarged. LYMPH NODES/RETROPERITONEUM/MESENTERY: No lymphadenopathy. No abdominal aortic aneurysm. ABDOMINAL WALL: There are several small midline fat-containing ventral hernias, which are stable. FREE FLUID: No ascites. BONES: No acute osseous abnormality. IMPRESSION: 1. Several very small hypervascular foci in the liver, stable since the prior exam of 01/31/2025. 2. Cirrhosis is again noted. 3. Several small fat-containing ventral hernias are noted, stable in appearance. Reviewed, Interpreted and Dictated by Diana Mustafa MD Transcribed by Diya Salgado Authenticated and [facility]
[2025-04-22] MEDS: BARIUM SULFATE(READI-CAT2);450ML BOTTLE 450 ML PO (13:13)
[2025-04-22] MEDS: SODIUM CHLORIDE 0.9% 10ML SYR (RAD ONLY) 10 ML IV (13:13)
[2025-04-22] MEDS: IOPAMIDOL-370 (76%);100ML BOTTLE 75 ML IV (13:14)
== END 2025-04-22 23:59 | disposition home or self-care (01) ==
LOC: RAD 12:15
PROVIDERS: PCP Nurse Practitioner Family; Visit Provider Surgery
DX: K76.0 Fatty (change of) liver, not elsewhere classified (principal); K43.9 Ventral hernia without obstruction or gangrene; K46.9 Unspecified abdominal hernia without obstruction or gangrene; R93.2 Abnormal findings on diagnostic imaging of liver and biliary tract
CPT/HCPCS: 36415; 74177; 82565; 84520; Q9967

== ENCOUNTER 2025-06-06 17:35 | Emergency (ER) | payer MEDICARE, MEDICAID, SELFPAY ==
[2025-06-06 17:38] VITALS: BP 184/114; PULSE 70; RESP 20; TEMP 36.7; O2SAT 95; BMI 37.3
--- NOTE | 2025-06-06 17:47 | ED_ITS ---
Discharge Plan Disposition Patient Disposition: Home, Self-Care Condition: Good Prescriptions Prescriptions: New methocarbamol 750 mg tablet 750 mg PO BID Qty: 30 0RF No Action oxycodone 5 mg tablet 5 mg PO NEEDED PRN (Reason: Pain) diclofenac sodium [Voltaren Arthritis Pain] 1 % gel 2 g topical QID Qty: 100 2RF Rx Instructions: apply to single elbow, wrist or hand; for hand includes palm/fingers/back of hand meloxicam 15 mg tablet 15 mg PO DAILY pantoprazole 20 mg tablet,delayed release (DR/EC) 20 mg PO DAILY Qty: 90 2RF Creon 36,000-114,000- 180,000 unit capsule,delayed release(DR/EC) 1 cap PO DIRECTED Qty: 90 1RF docusate sodium [Dulcolax Stool Softener (dss)] 100 mg capsule 100 mg PO DAILY Qty: 30 2RF potassium chloride 10 mEq capsule, extended release 10 meq PO DAILY Qty: 30 0RF tizanidine 4 mg tablet 4 mg PO DAILY Qty: 30 0RF tadalafil [Cialis] 5 mg tablet 5 mg PO DAILY Qty: 30 0RF tamsulosin [Flomax] 0.4 mg capsule 0.4 mg PO DAILY Qty: 30 0RF furosemide 20 mg tablet See Rx Instructions .ROUTE .COMPLEX Qty: 30 2RF Dose Instruction: TAKE 1/2 TABLET BY MOUTH ONCE A DAY FOR FLUID RETENTION Rx Instructions: TAKE 1/2 TABLET BY MOUTH ONCE A DAY FOR FLUID RETENTION guaifenesin [Mucinex] 600 mg tablet extended release 12hr 600 mg PO BID PRN (Reason: cough) Qty: 14 0RF albuterol sulfate 90 mcg/actuation HFA aerosol inhaler 2 inh inhalation Q4H PRN (Reason: shortness of breath or wheezing) Qty: 6.7 0RF ondansetron 4 mg tablet,disintegrating 4 mg PO Q6H PRN (Reason: nausea and vomiting) Qty: 10 0RF Referrals Follow up/Referrals: Shailesh Mchugh APRN [Primary Care Provider, Family Practice] - See instructions Yoav Davis DO [Staff Physician, Orthopedics] - See instructions Activity Restrictions/Add. Instructions Additional Instructions/Restrictions: Can follow-up with Dr. Davis if you continue to have pain in 1 week and are still having limited mobility. You will need to call him to schedule an appointment. You can use a sling for comfort but do not wear it all the time try to mobilize is much as possible use Tylenol and Motrin [id number] for the next couple days. I will send you with a muscle relaxer as well. Return to the emergency department for any acute worsening symptoms. You can use heat and ice as needed Clinical Impressions Clinical Impression: Acute pain of left shoulder Print Language Print Language: Bangladeshi Discharge ED Provider: Arabella Coombs Adult HPI General Chief complaint: Extremity Injury, Upper Stated complaint: Left Shoulder Pain Time Seen by Provider: 06/06/25 17:47 Mode of Arrival: Wheelchair Source of Information: Patient and Significant Other Description of Symptoms (Recalled from ER Triage Doc. by RN): Pt was trying to move gravel friday in his driveway when he had an intense pain in his shoulder. Pt states the pain radiates up and down his entire left arm. He thought the pain would go away and it just didnt ease up. History of Present Illness HPI narrative: Patient is a 65-year-old male with no significant past medical history who presents to the emergency department with left arm pain. Patient states that he was moving gravel on Friday when he had pain in his left shoulder. Patient states that he has had difficulty moving the arm since then. Patient tried ice at home without significant relief. Patient denies any prior surgeries to the left arm. Patient denies any falls onto the arm and only repor ts pain after moving the gravel. Patient denies any numbness or weakness but only difficulties moving the arm secondary to pain. Related Data Home Medications ?Medication ?Instructions ?Recorded ?Confirmed oxycodone 5 mg tablet 5 mg PO NEEDED PRN Pain 0 09/11/23 05/10/25 meloxicam 15 mg tablet 15 mg PO DAILY 01/04/2504/19 Previous Rx's ?Medication ?Instructions ?Recorded albuterol sulfate 90 mcg/actuation 2 inh inhalation Q4 H PRN shortness 01/14/24 aerosol inhaler of breath or wheezing #6.7 g dilip diclofenac sodium 1 % topical gel 2 g topical QID #100 grams 07/07/24 (Voltaren Arthritis Pain) pantoprazole 20 mg tablet,delayed 20 mg PO DAILY #90 t abs 10/26/24 release guaifenesin 600 mg tablet, 600 mg PO BID PRN cough #14 tabs 11/09/24 extended release 12 hr (Mucinex) potassium chloride 10 mEq 10 meq PO DAILY #30 caps 11/09 capsule,extended release tizanidine 4 mg tablet 4 mg PO DAILY #30 tabs 11/18 tadalafil 5 mg tablet (Cialis) 5 mg PO DAILY #30 tabs 12/21/24 tamsulosin 0.4 mg capsule (Flomax) 0.4 mg PO DAILY #30 caps 12/21/24 furosemide 20 mg tablet See Rx Instructions .Route 0 01/11/25 .COMPLEX #30 tabs ondansetron 4 mg disintegrating 4 mg PO Q6H PRN nausea and 01/31/25 tablet vomiting #10 tabs [id number] 1 cap PO DIRECTED #90 cap s 04/05/25 (pork)36,000-114,000-180k unit capsule,del rel (Creon) docusate sodium 100 mg capsule 100 mg PO DAILY #30 cap s 04/06/25 (Dulcolax Stool Softener (docusate)) methocarbamol 750 mg tablet 750 mg PO BID #30 tabs Allergies Allergy/AdvReac Type Severity Reaction Status Date / Time gabapentin (From Neurontin) AdvReac Mild Unknown Verified 05/10/25 11:19 allergy reaction [facility] Disclaimer: The information contained in this section may have been updated after the patient was seen, as this information can be updated by other users. 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 History of stroke Surgical History History of back surgery History of knee replacement Family History Other Cancer Diabetes Social History Smoking Status: Current every day smoker years smoked: 50 quit status: has quit before alcohol intake: current alcohol intake frequency: holidays/special occasions only substance use type: denies use current occupational status: retired Travel in the last 8 weeks?: None housing: house marital status: life partner education level: high school Have you lived/traveled outside [place] in past 30 days?: No Contact w/someone who lives/traveled outside US past 30 days?: No Exposure to someone with infectious disease in past 14 days?: No Do you have a fever (greater than 100.4 F or 38 C)?: No Have you tested positive for COVID-19?: No Exposed to someone with COVID-19 in past 14 days?: No Do you have a sore throat?: No Do you have a cough?: No Do you have any weakness?: No Do you have any diarrhea?: No Are you experiencing any unusual bleeding?: No Do you have any muscle aches/pain?: No Do you have any abdominal pain?: No Are you experiencing loss of taste or smell?: No Other Medical History Have you received the Pneumonia Vaccine: Yes ROS Obtained: Yes All systems reviewed & no additional complaints except as documented and Yes Systems reviewed as appropriate & no additional complaints except as documented Physical Exam General General appearance: alert and in no apparent distress Head Head exam: atraumatic, normocephalic and normal inspection Eye Eye exam: Present normal appearance, PERRL and EOMI; Absent scleral icterus ENT ENT exam: Present normal exam and normal external ear exam Neck Neck exam: Present normal inspection and full ROM Chest Chest inspection: Present normal inspection and symmetric chest wall rise Respiratory Respiratory exam: Present normal lung sounds bilaterally; Absent respiratory distress or wheezes Cardiovascular Cardiovascular exam: Present regular rate, normal rhythm and normal heart sounds Abdominal Exam Abdominal exam: Present soft and distention; Absent tenderness, guarding or rebound Extremities Exam Extremities exam: Present normal inspection, full ROM and other (LUE: tenderness along the deltoid and bicep, no obvious defect, difficulties with abduction and adduction) Back Exam Back exam: Present normal inspection and full ROM Neurological Exam Neurological exam: Present alert and oriented X3 Psychiatric Psychiatric exam: Present normal affect and normal mood Skin Skin exam: Present warm and dry Medical Decision Making Medical Records Medical records reviewed: Yes I reviewed the patient's medical records. Screening: Per USPSTF and CDC recommendations, given the prevalence of disease in our [facility], it is our hospital?s policy to screen for HIV and viral Hepatitis for all patients aged 18 and over and those with ongoing risk factors. Elias Inquiry Pt receiving controlled substance: No Vital Signs: 06/06/25 17:38 06/06/25 18:21 06/06/25 20:00 Temperature 98.0 F 98.7 F Temperature Source Temporal Artery Scan Oral Pulse Rate 68 90 Pulse Rate [Right] 70 Respiratory Rate 20 14 20 Blood Pressure 131/89 150/90 H Blood Pressure [Right Arm] 184/114 H Blood Pressure Mean [Right Arm] 137 Blood Pressure Source [Right Arm] Automatic Cuff Blood Pressure Position [Right Arm] Sitting 02 Sat by Pulse Oximetry 95 97 Oxygen Delivery Method Room Air Room Air Room Air Lab Data Lab results reviewed: Yes I reviewed the patient's lab results. Orders (Tests/Meds): ED MEDICATIONS Discontinued Medications Generic Name Dose Route Start Last Admin Trade Name Freq PRN Reason Stop Dose Admin Acetaminophen 1,000 mg 06/06/25 18:07 06/06/25 18:18 Acetaminophen 500mg Tab PO 06/06/25 18:08 Not Given ONCE ONE Diazepam 5 mg 06/06/25 18:06 06/06/25 18:16 Diazepam 5mg Tablet PO 06/06/25 18:07 5 mg ONCE ONE Administration Ketorolac Tromethamine 30 mg 06/06/25 18:10 06/06/25 18:16 Ketorolac 30mg/Ml Vial IM 06/06/25 18:11 30 mg ONCE ONE Administration Oxycodone HCl 5 mg 06/06/25 18:07 06/06/25 18:16 Oxycodone 5mg Immediate Release Tablet PO 06/06/25 18:08 5 mg ONCE ONE Administration ORDERS Category Date Time Status POCUS Point of Care (ER Only) Stat Exams 06/06/25 18:08 Taken XR humerus LT Stat Exams 06/06/25 18:06 Completed XR shoulder LT min 2V Stat Exams 06/06/25 17:56 Completed Medical Decision Narrative: Patient is a 65-year-old male with no significant past medical history who presents to the emergency department with left upper extremity pain. On arrival, patient was hemodynamically stable with unremarkable vital signs. Differential includes but not limited to: Fracture, dislocation, rotator cuff injury, tendinitis, amongst others. X-rays were obtained and patient was given medications for symptom control in the emergency department. X-rays were reviewed and interpreted by myself and showed no acute pathology. Had some relief with medications in the emergency department. Patient was given a sling for comfort but advised to mobilize the arm is much as possible. I suspect patient has either a rotator cuff injury or some mild tendinitis. Patient was advised to use Tylenol and Motrin Robaxin and patient was sent with a referral to orthopedics if his pain does not improve. Patient was otherwise discharged home in stable condition return precautions were discussed. Patient was otherwise vascularly intact with an appropriate 2+ radial pulse. Critical Care Critical Care Time Critical Care Time: No
--- NOTE | 2025-06-06 17:56 | XR_ITS ---
PROCEDURE INFORMATION: Exam: XR Left Shoulder Exam date and time: 06/06/2025 6:08 PM Age: 65 years old Clinical indication: Pain; Shoulder; Left; Additional info: Shoulder pain TECHNIQUE: Imaging protocol: Radiologic exam of the left shoulder. Views: 2 or more views. COMPARISON: CR XR CHEST PORTABLE 11/09/2024 2:03 PM FINDINGS: Bones/joints: Normal. Soft tissues: Normal. IMPRESSION: No acute findings.
--- NOTE | 2025-06-06 18:06 | XR_ITS ---
PROCEDURE INFORMATION: Exam: XR Left Humerus Exam date and time: 06/06/2025 6:10 PM Age: 65 years old Clinical indication: Pain; Upper arm; Left TECHNIQUE: Imaging protocol: Radiologic exam of the left humerus. Views: 2 or more views. COMPARISON: CR XR SHOULDER LT MIN 2V 06/06/2025 6:08 PM FINDINGS: Bones/joints: Normal. Soft tissues: Normal. IMPRESSION: No acute findings.
[2025-06-06] MEDS: KETOROLAC 30MG/ML VIAL 30 MG IM (18:16)
[2025-06-06] MEDS: OXYCODONE 5MG IMMEDIATE RELEASE TABLET 5 MG PO (18:16)
[2025-06-06] MEDS: diazePAM 5MG TABLET 5 MG PO (18:16)
--- NOTE | 2025-06-06 18:18 | PC.NURSE ---
patient refused ordered tylenol due to history of hepatitis and it being too hard on my liver . MD made aware. patient being taken via wheelchair to radiology at this time for ordered xrays.
[2025-06-06 18:21] VITALS: BP 131/89; PULSE 68; RESP 14; O2SAT 97
[2025-06-06 20:00] VITALS: BP 150/90; PULSE 90; RESP 20; TEMP 37.1; O2SAT 96
--- NOTE | 2025-06-07 14:21 | CARE MANAGER ---
Contacted patient to let them know insurance would not cover the methocarbamol that the ER physician called into the pharmacy yesterday. Encouraged him to reach out to primary care provider and discuss an alternative since the ER physician is not here today. He states he will do this.
== END 2025-06-06 20:01 | disposition home or self-care (01) ==
PROVIDERS: Emergency Provider Student in an Organized Health Care Education/Training Program; PCP Nurse Practitioner Family
DX: M25.512 Pain in left shoulder (principal)
CPT/HCPCS: 73030; 73060; 96372; 99283; J1885

== ENCOUNTER 2025-06-29 13:00 | Emergency (ER) | payer MEDICARE, MEDICAID, SELFPAY ==
[2025-06-29] VITALS (8 sets, daily range): BP systolic 116–170; BP diastolic 75–115; PULSE 70–96; RESP 15–22; TEMP 36.5–36.9; O2SAT 95–99; BMI 35.9
--- NOTE | 2025-06-29 13:17 | XR_ITS ---
FINAL REPORT TECHNIQUE: Portable chest CLINICAL HISTORY: short of breath COMPARISON: 11/09/2024 FINDINGS: PORTABLE CHEST No acute pulmonary opacity is present. There is no evidence of effusion or pneumothorax. Mediastinum is unremarkable. Heart size is normal. IMPRESSION: No acute abnormality. Reviewed, Interpreted and Dictated by Stella Chan MD Transcribed by Diya Salgado Authenticated and [facility]
--- NOTE | 2025-06-29 13:17 | CT_ITS ---
FINAL REPORT TECHNIQUE: IV contrast enhanced exam This study was performed with techniques to keep radiation doses as low as reasonably achievable, (ALARA). Individualized dose reduction techniques using automated exposure control or adjustment of mA and/or kV according to the patient's size were employed. CLINICAL HISTORY: bilateral flank pain COMPARISON: 04/22/2025 FINDINGS: CT ABDOMEN PELVIS WITH CONTRAST: Abdomen: Lung bases are clear. The gallbladder is unremarkable. The liver has a nodular appearance consistent with cirrhosis. The spleen, pancreas and adrenal glands are unremarkable. There is a right renal nonobstructing 6 mm stone, stable. There is a nonobstructing 7 mm left lower pole stone, as well as a smaller left upper pole stone, both of which are stable. No hydronephrosis is identified. There is mild left renal scarring. No bowel obstruction or fluid collection is seen. There is a small umbilical hernia containing fat. Pelvis: The appendix is normal in appearance. The prostate is moderately enlarged. The bladder is normal in appearance. Pelvic bowel loops are unremarkable. No fluid collection or adenopathy is seen. IMPRESSION: 1. No acute intra-abdominal or intrapelvic abnormality identified. 2. Hepatic cirrhosis. 3. Several nonobstructing bilateral renal stones as described. Reviewed, Interpreted and Dictated by Stella Chan MD Transcribed by Diya Salgado Authenticated and [facility]
[2025-06-29] MEDS: MORPHINE 4MG/ML SYRINGE 4 MG IV (13:26)
[2025-06-29] MEDS: ONDANSETRON 4MG/2ML VIAL 4 MG IV (13:26)
[2025-06-29] MEDS: 0.9 % SODIUM CHLORIDE 1000ML 1,000 ML 999 ML IV (13:26)
[2025-06-29] MEDS: KETOROLAC 30MG/ML VIAL 30 MG IV (13:26)
--- NOTE | 2025-06-29 13:29 | ECG_ITS ---
APPROVED REPORT Exam: Resting ECG HR:80 bpm ECG Measurements Heart Rate 80 AXES PA 299 P 60 QRSd 104 QRS 45 QT 388 T 75 QTc 424 Conclusion SINUS RHYTHM WITH FIRST DEGREE AV BLOCK INDETERMINATE AXIS ANTEROSEPTAL MYOCARDIAL INFARCTION , OF INDETERMINATE AGE [40+ ms Q WAVE IN V1-V4] ABNORMAL ECG UNCONFIRMED REPORT Electronically signed by : Luciano Weir, 06/29/2025 16:52:11
[2025-06-29 13:32] LABS: Hematocrit 48.6 % (42.0-52.0); Hemoglobin 16.6 g/dL (14.1-18.0); Immature Granulocytes % 0.4 %; Mean Corpuscular HGB Conc 34.2 g/dL (31.8-35.4); Mean Corpuscular Hemoglobin 32.5 pg (27.0-31.2); Mean Corpuscular Volume 95.1 fl (80-94); Nucleated Red Blood Cells % 0 %; Platelet Count 168 K/mm3 (142-424); Red Blood Count 5.11 M/mm3 (4.60-6.20); Red Cell Distribution Width-SD 40.2 fL; White Blood Count 10.3 K/mm3 (4.8-10.8)
[2025-06-29 13:36] LABS: Alanine Aminotransferase 43 U/L (12-78); Albumin Level 4.4 g/dl (3.5-5.0); Albumin/Globulin Ratio 1.4 (1.1-1.8); Alkaline Phosphatase 90 U/L (38-126); Anion Gap 11.0 mEq/L (5-15); Aspartate Amino Transferase 38 U/L (17-59); Bilirubin,Total 1.5 mg/dl (0.2-1.3); Blood Urea Nitrogen 14 mg/dl (9-20); Calcium 9.3 mg/dl (8.4-10.2); Carbon Dioxide 24 mmol/L (22.0-30.0); Chloride 104 mmol/L (98-107); Creatinine Clearance Estimated 115 mL/min (50-200); Creatinine,Serum 0.80 mg/dl (0.66-1.25); Estimated Glomerular Filt Rate 96 ml/min (>60); GFR (African American) 117 ML/MIN (>60); Globulin 3.1 g/dL (1.3-3.2); Glucose 109 mg/dl (74-100); Lipase 39 U/L (23-300); Magnesium 1.7 mg/dl (1.6-2.3); Potassium 4.0 mmoL/L (3.5-5.1); Sodium 135 mmol/L (136-145); Total Protein,Serum 7.5 g/dl (6.3-8.2)
[2025-06-29 13:38] LABS: Activated Partial Thrombo Time 25.9 seconds (22.8-30.6); INR 1.03 (0.9-1.1); Prothrombin Time 11.4 seconds (10.1-12.5)
[2025-06-29] MEDS: IOPAMIDOL-370 (76%);100ML BOTTLE 75 ML IV (13:50)
[2025-06-29] MEDS: SODIUM CHLORIDE 0.9% 10ML SYR (RAD ONLY) 10 ML IV (13:50)
[2025-06-29 13:52] LABS: Troponin I < 0.01 ng/ml (0.00-0.034)
--- NOTE | 2025-06-29 13:52 | ED_ITS ---
<Statement entered by Luciano Weir MD - 06/29/25 16:40> I independently examined this patient. He reports that his abdominal pain and flank pain has been going on for months, but it was worse this morning. He is not focally tender anywhere on my objective examination. No flank tenderness. He does seem to wince when he moves around the bed, it is possible that this is a muscle strain versus sprain. However, he does report decreased urination. His kidney function is normal today and his urine is without evidence of infection. His cross-sectional imaging of his abdomen is unrevealing for acute process no hydronephrosis. He has stable nephrolithiasis that are nonobstructing. Given his decreased urination, BPH is possible and we will start him on Flomax and follow-up with urology on Friday. I was consulted by the CLAUDIA, and we discussed the complexity of problems being addressed. I approved the treatment and management plan for this patient's care in the emergency department, thus performing a substantial portion of the medical decision making. Luciano Weir MD Discharge Plan Disposition Patient Disposition: Home, Self-Care Prescriptions Prescriptions: New tamsulosin [Flomax] 0.4 mg capsule 0.4 mg PO DAILY 30 Days Qty: 30 0RF No Action oxycodone 5 mg tablet 5 mg PO NEEDED PRN (Reason: Pain) diclofenac sodium [Voltaren Arthritis Pain] 1 % gel 2 g topical QID Qty: 100 2RF Rx Instructions: apply to single elbow, wrist or hand; for hand includes palm/fingers/back of hand Creon 36,000-114,000- 180,000 unit capsule,delayed release(DR/EC) 1 cap PO DIRECTED Qty: 90 1RF tizanidine 4 mg tablet 4 mg PO DAILY Qty: 30 0RF tamsulosin [Flomax] 0.4 mg capsule 0.4 mg PO DAILY Qty: 30 0RF furosemide 20 mg tablet See Rx Instructions .ROUTE .COMPLEX Qty: 30 2RF Dose Instruction: TAKE 1/2 TABLET BY MOUTH ONCE A DAY FOR FLUID RETENTION Rx Instructions: TAKE 1/2 TABLET BY MOUTH ONCE A DAY FOR FLUID RETENTION guaifenesin [Mucinex] 600 mg tablet extended release 12hr 600 mg PO BID PRN (Reason: cough) Qty: 14 0RF methocarbamol 750 mg tablet 750 mg PO BID Qty: 30 0RF albuterol sulfate 90 mcg/actuation HFA aerosol inhaler 2 inh inhalation Q4H PRN (Reason: shortness of breath or wheezing) Qty: 6.7 0RF Referrals Follow up/Referrals: Shailesh Mchugh APRN [Primary Care Provider, Family Practice] - See instructions Levar Oliver MD [Staff Physician, Urology] - See instructions Activity Restrictions/Add. Instructions Additional Instructions/Restrictions: Take meds as directed. Please see Dr. Oliver in follow-up. Clinical Impressions Clinical Impression: BPH (benign prostatic hyperplasia), Bilateral flank pain Instructions Patient Instructions: Benign Prostatic Hyperplasia, Acute Abdominal Pain Print Language Print Language: Welsh Discharge ED Provider: Luciano Weir Adult HPI <Ratna Renteria (ED), RIGGING WORKER - Last Filed: 06/29/25 16:13> General Chief complaint: PAIN Stated complaint: L side pain Time Seen by Provider: 06/29/25 13:20 Mode of Arrival: Ambulatory Source of Information: Patient and Medical Record Description of Symptoms (Recalled from ER Triage Doc. by RN): Pt reports L flank pain that began 2-3 days ago. Reports difficulty urinating and gross hematuria. He does have a hx of kidney stones. History of Present Illness HPI narrative: 65-year-old male presents to the ED with complaint of bilateral flank plain left worse than right. This started 3 days ago. He says this not been out of bed for 3 days. Patient reports difficulty urinating but no blood in his urine. He does have a history of kidney stones. He has had nausea but no vomiting. He reports pain 8 out of 10. He says it feels like knife stabbing pain. Related Data Home Medications ?Medication ?Instructions ?Recorded ?Confirmed oxycodone 5 mg tablet 5 mg PO NEEDED PRN Pain 0 09/11/23 06/21/25 Previous Rx's ?Medication ?Instructions ?Recorded albuterol sulfate 90 mcg/actuation 2 inh inhalation Q4 H PRN shortness 01/14/24 aerosol inhaler of breath or wheezing #6.7 g dilip diclofenac sodium 1 % topical gel 2 g topical QID #100 grams 07/07/24 (Voltaren Arthritis Pain) guaifenesin 600 mg tablet, 600 mg PO BID PRN cough #14 tabs 11/09/24 extended release 12 hr (Mucinex) tizanidine 4 mg tablet 4 mg PO DAILY #30 tabs 11/18 tamsulosin 0.4 mg capsule (Flomax) 0.4 mg PO DAILY #30 caps 12/21/24 furosemide 20 mg tablet See Rx Instructions .Route 0 01/11/25 .COMPLEX #30 tabs grmimg-tyditacp-aqihiai 1 cap PO DIRECTED #90 cap s 04/05/25 (pork)36,000-114,000-180k unit capsule,del rel (Creon) methocarbamol 750 mg tablet 750 mg PO BID #30 tabs tamsulosin 0.4 mg capsule (Flomax) 0.4 mg PO DAILY 30 days #30 caps 06/29/25 Allergies Allergy/AdvReac Type Severity Reaction Status Date / Time gabapentin (From Neurontin) AdvReac Mild Unknown Verified 06/21/25 14:41 allergy reaction PFS <Ratna Renteria (ED), RIGGING WORKER - Last Filed: 06/29/25 16:13> [facility] Disclaimer: The information contained in this section may have been updated after the patient was seen, as this information can be updated by other users. 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 History of stroke Surgical History History of back surgery History of knee replacement Family History Other Cancer Diabetes Social History Smoking Status: Current every day smoker years smoked: 50 quit status: has quit before alcohol intake: current alcohol intake frequency: holidays/special occasions only substance use type: denies use current occupational status: retired Travel in the last 8 weeks?: None housing: house marital status: life partner education level: high school Have you lived/traveled outside US in past 30 days?: No Contact w/someone who lives/traveled outside US past 30 days?: No Exposure to someone with infectious disease in past 14 days?: No Do you have a fever (greater than 100.4 F or 38 C)?: No Have you tested positive for COVID-19?: No Exposed to someone with COVID-19 in past 14 days?: No Do you have a sore throat?: No Do you have a cough?: No Do you have any weakness?: No Do you have any diarrhea?: No Are you experiencing any unusual bleeding?: No Do you have any muscle aches/pain?: No Do you have any abdominal pain?: No Are you experiencing loss of taste or smell?: No Other Medical History Have you received the Pneumonia Vaccine: Yes <Ratna Renteria (ED), RIGGING WORKER - Last Filed: 06/29/25 16:13> ROS Obtained: Yes Systems reviewed as appropriate & no additional complaints except as documented Constitutional Constitutional: Reports as per HPI Physical Exam <Ratna Renteria (ED), RIGGING WORKER - Last Filed: 06/29/25 16:13> General General appearance: alert and in distress Head Head exam: atraumatic and normocephalic Eye Eye exam: Present PERRL and EOMI ENT ENT exam: Present normal oropharynx and mucous membranes moist Neck Neck exam: Present full ROM and trachea midline Respiratory Respiratory exam: Present normal lung sounds bilaterally Cardiovascular Cardiovascular exam: Present regular rate, normal rhythm, normal heart sounds, +S1 and +S2 Abdominal Exam Abdominal exam: Present soft and normal bowel sounds Abdominal tenderness: Present RUQ and LUQ Extremities Exam Extremities exam: Present full ROM and normal capillary refill Back Exam Back exam: Present normal inspection, CVA tenderness (R) and CVA tenderness (L) Neurological Exam Neurological exam: Present alert and oriented X3 Skin Skin exam: Present warm and dry Medical Decision Making <Ratna Renteria (ED), RIGGING WORKER - Last Filed: 06/29/25 16:13> Medical Records Screening: Per USPSTF and CDC recommendations, given the prevalence of disease in our region, it is our hospital?s policy to screen for HIV and viral Hepatitis for all patients aged 18 and over and those with ongoing risk factors. Elias Inquiry Pt receiving controlled substance: No Elias was queried for this patient: No Vital Signs: 06/29/25 13:06 06/29/25 13:30 06/29/25 14:00 Temperature 97.7 F Temperature Source Oral Pulse Rate 78 Pulse Rate [Left] 96 H Respiratory Rate 22 17 15 Blood Pressure 117/79 126/77 Blood Pressure [Right Arm] 170/115 H Blood Pressure Mean [Right Arm] 133 Blood Pressure Source Blood Pressure Source [Right Arm] Automatic Cuff Blood Pressure Position 02 Sat by Pulse Oximetry 98 96 Oxygen Delivery Method Room Air Room Air 06/29/25 16:16 Temperature 98.4 F Temperature Source Oral Pulse Rate 74 Pulse Rate [Left] Respiratory Rate 15 Blood Pressure 116/75 Blood Pressure [Right Arm] Blood Pressure Mean [Right Arm] Blood Pressure Source Automatic Cuff Blood Pressure Source [Right Arm] Blood Pressure Position Supine 02 Sat by Pulse Oximetry Oxygen Delivery Method Room Air Lab Data Lab Results 06/29/25 13:17: WBC 10.3, RBC 5.11, Hgb 16.6, Hct 48.6, MCV 95.1 H, MCH 32.5 H, MCHC 34.2, RDW 11.4 L, Plt Count 168, MPV 11.7 H, Neut % (Auto) 74.0, Lymph % (Auto) 14.9, [place] % (Auto) 9.4 H, Eos % (Auto) 1.0, Baso % (Auto) 0.3, Neut # (Auto) 7.6, Lymph # (Auto) 1.5, [place] # (Auto) 1.0, Eos # (Auto) 0.1, Baso # (Auto) 0.0, PT 11.4, INR 1.03, APTT 25.9, Sodium 135 L, Potassium 4.0, Chloride 104, Carbon Dioxide 24, Anion Gap 11.0, BUN 14, Creatinine 0.80, Estimated Creat Clear 115, Estimated GFR 96, Est GFR ( Amer) 117, Glucose 109 H, Lactate 0.9, Calcium 9.3, Magnesium 1.7, Total Bilirubin 1.5 H, AST 38, ALT 43, Alkaline Phosphatase 90, Troponin I < 0.01, Total Protein 7.5, Albumin 4.4, Globulin 3.1, Albumin/Globulin Ratio 1.4, Lipase 39 06/29/25 15:12: Urine Color Dark yellow, Urine Appearance Clear, Urine pH 6.0, Ur Specific [place] 1.010, Urine Protein Negative, Urine Glucose (UA) Negative, Urine Ketones Negative, Urine Blood Trace-i, Urine Nitrate Negative, Urine Bilirubin Negative, Urine Urobilinogen 4.0, Ur Leukocyte Esterase Negative 06/29/25 13:17 06/29/25 13:17 Orders (Tests/Meds): ED MEDICATIONS Generic Name Dose Route Start Last Admin Trade Name Pj PRN Reason Stop Dose Admin Sodium Chloride 10 ml 06/29/25 13:49 06/29/25 13:50 Sodium Chloride 0.9% 10ml Syr (Rad Only) IV 07/29/25 13:48 10 ml NEEDED PRN Administration Maintain IV Site Discontinued Medications Generic Name Dose Route Start Last Admin Trade Name Freroger PRN Reason Stop Dose Admin Sodium Chloride 1,000 mls @ 999 mls/hr 06/29/25 13:17 06/29/25 14:42 Sod Chlor 0.9% 1000ml Bag IV 06/29/25 14:17 Infused .Q1H1M ONE Infusion Iopamidol 75 ml 06/29/25 13:49 06/29/25 13:50 Iopamidol-370 (76%);100ml Bottle IV 06/29/25 13:50 75 ml ONCE ONE Administration Ketorolac Tromethamine 30 mg 06/29/25 13:17 06/29/25 13:26 Ketorolac 30mg/Ml Vial IV 06/29/25 13:18 30 mg ONCE ONE Administration Morphine Sulfate 4 mg 06/29/25 13:17 06/29/25 13:26 Morphine 4mg/Ml Syringe IV 06/29/25 13:18 4 mg ONCE ONE Administration Ondansetron HCl 4 mg 06/29/25 13:17 06/29/25 13:26 Ondansetron 4mg/2ml Vial IV 06/29/25 13:18 4 mg ONCE ONE Administration ORDERS Category Date Time Status CT abdomen pelvis w con Stat Cat Scan 06/29/25 13:17 Completed Chest XR -- portable [XR chest portable] Stat Exams 06/29/25 13:17 Completed CBC [Complete Blood Count Auto Diff] Stat Lab 06/29/25 13:17 Completed Comprehensive Metabolic Panel Stat Lab 06/29/25 13:17 Completed Lactic Acid Stat Lab 06/29/25 13:17 Completed Lipase Stat Lab 06/29/25 13:17 Completed Magnesium Stat Lab 06/29/25 13:17 Completed PT INR [Prothrombin Time INR] Stat Lab 06/29/25 13:17 Completed PTT [Activated Partial Thrombo Time] Stat Lab 06/29/25 13:17 Completed Trop I [Troponin I] Stat Lab 06/29/25 13:17 Completed Troponin I Q3H Lab 06/29/25 16:30 Ordered Troponin I Q3H Lab 06/29/25 19:30 Ordered Urinalysis and Microscopic Stat Lab 06/29/25 15:12 Results Medical Decision Narrative: patient is a 65-year-old male presenting to the emergency department for evaluation of bilateral upper abdominal and bilateral flank pain. Patient is hemodynamically stable and nontoxic-appearing upon arrival, afebrile. Differential diagnosis includes kidney stones, UTI, pyelonephritis, among other. Workup will be conducted with hematologic labs, specific imaging, provocative tests. Initial inventions include crystalloid bolus, analgesics, antibiotics. Initial workup reviewed by mi hematologic labs are remarkable for white count 10.3 normal kidney function, otherwise nonactionable labs.. CT of abdomen and pelvis shows cirrhosis, several nonobstructing bilateral renal stones. Dr. Suarez is speaking with patient about the stones. We are still waiting on urine result. Dr. Weir discussed putting patient on Flomax. He wants patient to see [place]. <Luciano Weir MD - Last Filed: 06/29/25 16:23> Vital Signs: 06/29/25 13:06 06/29/25 13:30 06/29/25 14:00 Temperature 97.7 F Temperature Source Oral Pulse Rate 78 Pulse Rate [Left] 96 H Respiratory Rate 22 17 15 Blood Pressure 117/79 126/77 Blood Pressure [Right Arm] 170/115 H Blood Pressure Mean [Right Arm] 133 Blood Pressure Source Blood Pressure Source [Right Arm] Automatic Cuff Blood Pressure Position 02 Sat by Pulse Oximetry 98 96 Oxygen Delivery Method Room Air Room Air 06/29/25 16:16 Temperature 98.4 F Temperature Source Oral Pulse Rate 74 Pulse Rate [Left] Respiratory Rate 15 Blood Pressure 116/75 Blood Pressure [Right Arm] Blood Pressure Mean [Right Arm] Blood Pressure Source Automatic Cuff Blood Pressure Source [Right Arm] Blood Pressure Position Supine 02 Sat by Pulse Oximetry Oxygen Delivery Method Room Air Lab Data Lab Results 06/29/25 13:17: WBC 10.3, RBC 5.11, Hgb 16.6, Hct 48.6, MCV 95.1 H, MCH 32.5 H, MCHC 34.2, RDW 11.4 L, Plt Count 168, MPV 11.7 H, Neut % (Auto) 74.0, Lymph % (Auto) 14.9, [place] % (Auto) 9.4 H, Eos % (Auto) 1.0, Baso % (Auto) 0.3, Neut # (Auto) 7.6, Lymph # (Auto) 1.5, [place] # (Auto) 1.0, Eos # (Auto) 0.1, Baso # (Auto) 0.0, PT 11.4, INR 1.03, APTT 25.9, Sodium 135 L, Potassium 4.0, Chloride 104, Carbon Dioxide 24, Anion Gap 11.0, BUN 14, Creatinine 0.80, Estimated Creat Clear 115, Estimated GFR 96, Est GFR ( Amer) 117, Glucose 109 H, Lactate 0.9, Calcium 9.3, Magnesium 1.7, Total Bilirubin 1.5 H, AST 38, ALT 43, Alkaline Phosphatase 90, Troponin I < 0.01, Total Protein 7.5, Albumin 4.4, Globulin 3.1, Albumin/Globulin Ratio 1.4, Lipase 39 06/29/25 15:12: Urine Color Dark yellow, Urine Appearance Clear, Urine pH 6.0, Ur Specific [place] 1.010, Urine Protein Negative, Urine Glucose (UA) Negative, Urine Ketones Negative, Urine Blood Trace-i, Urine Nitrate Negative, Urine Bilirubin Negative, Urine Urobilinogen 4.0, Ur Leukocyte Esterase Negative Orders (Tests/Meds): ED MEDICATIONS Generic Name Dose Route Start Last Admin Trade Name Freq PRN Reason Stop Dose Admin Sodium Chloride 10 ml 06/29/25 13:49 06/29/25 13:50 Sodium Chloride 0.9% 10ml Syr (Rad Only) IV 07/29/25 13:48 10 ml NEEDED PRN Administration Maintain IV Site Discontinued Medications Generic Name Dose Route Start Last Admin Trade Name Freq PRN Reason Stop Dose Admin Sodium Chloride 1,000 mls @ 999 mls/hr 06/29/25 13:17 06/29/25 14:42 Sod Chlor 0.9% 1000ml Bag IV 06/29/25 14:17 Infused .Q1H1M ONE Infusion Iopamidol 75 ml 06/29/25 13:49 06/29/25 13:50 Iopamidol-370 (76%);100ml Bottle IV 06/29/25 13:50 75 ml ONCE ONE Administration Ketorolac Tromethamine 30 mg 06/29/25 13:17 06/29/25 13:26 Ketorolac 30mg/Ml Vial IV 06/29/25 13:18 30 mg ONCE ONE Administration Morphine Sulfate 4 mg 06/29/25 13:17 06/29/25 13:26 Morphine 4mg/Ml Syringe IV 06/29/25 13:18 4 mg ONCE ONE Administration Ondansetron HCl 4 mg 06/29/25 13:17 06/29/25 13:26 Ondansetron 4mg/2ml Vial IV 06/29/25 13:18 4 mg ONCE ONE Administration ORDERS Category Date Time Status CT abdomen pelvis w con Stat Cat Scan 06/29/25 13:17 Completed Chest XR -- portable [XR chest portable] Stat Exams 06/29/25 13:17 Completed CBC [Complete Blood Count Auto Diff] Stat Lab 06/29/25 13:17 Completed Comprehensive Metabolic Panel Stat Lab 06/29/25 13:17 Completed Lactic Acid Stat Lab 06/29/25 13:17 Completed Lipase Stat Lab 06/29/25 13:17 Completed Magnesium Stat Lab 06/29/25 13:17 Completed PT INR [Prothrombin Time INR] Stat Lab 06/29/25 13:17 Completed PTT [Activated Partial Thrombo Time] Stat Lab 06/29/25 13:17 Completed Trop I [Troponin I] Stat Lab 06/29/25 13:17 Completed Troponin I Q3H Lab 06/29/25 16:30 Ordered Troponin I Q3H Lab 06/29/25 19:30 Ordered Urinalysis and Microscopic Stat Lab 06/29/25 15:12 Results ECG Data Tracing #1: Independently interpreted by myself demonstrate normal sinus rhythm with no obvious acute ischemic ST change. First-degree AV block. Poor R wave progression, not acutely actionable. Critical Care <Ratna Renteria (ED), RIGGING WORKER - Last Filed: 06/29/25 16:13> Critical Care Time Critical Care Time: No
[2025-06-29 15:26] LABS: Microscopic, Urine URINE MICROSCOPIC (MICROSCOPIC)
[2025-06-29 15:40] LABS: Bilirubin,Urine Negative (Negative); Glucose,Urine (UA) Negative (Negative); Ketones,Urine Negative (Negative); Leukocyte Esterase,Urine Negative (Negative); PH,Urine 6.0 (5.0-8.5); Protein,Urine Negative (Negative); Specific Gravity, Urine 1.010 (1.005-1.030); Urobilinogen,Urine 4.0 EU/dl (0.2)
[2025-06-29 15:48] LABS: Color,Urine Dark Yellow (Yellow)
--- NOTE | 2025-06-29 16:24 | PC.NURSE ---
called [facility] for transportation home
[2025-06-29 16:37] LABS: Bacteria,Urine 1+ /lpf; Squamous Epithelial Cell,Urine Occasional #/hpf (0-5)
== END 2025-06-29 16:28 | disposition home or self-care (01) ==
PROVIDERS: Nurse Practitioner; Emergency Provider Emergency Medicine; PCP Nurse Practitioner Family
DX: R10.A3 Flank pain, bilateral (principal); N40.0 Benign prostatic hyperplasia without lower urinary tract symptoms; F32.A Depression, unspecified
CPT/HCPCS: 71045; 74177; 80053; 81001; 83605; 83690; 83735; 84484; 85025; 85610; 85730; 93005; 96361; 96374; 96375; 99285; J1885; J2270; J2405; J7030; Q9967

== ENCOUNTER 2025-07-18 14:07 | Outpatient (CLI) | payer MEDICARE, MEDICAID, SELFPAY ==
--- OUTSIDE RECORDS SUMMARY | 2015-06-23 08:40 | XMS_ITS | Encounter Summary ---
[facility] Address [address] [place] [address] Care Team Providers Care Pattern Maker Programer Name Role Phone Elder, Ewa Llanes APRN Primary Care Provider [phone] Encounter Details Date Type Department Care Team (Late st Contact Info) Description 06/23/2015 7:40 AM [facility] [address] [place] [address] Social History Tobacco Use Types Packs/Day Years Used Date Smoking Tobacco: Every Day Cigarettes Smokeless Tobacco: Never Alcohol Use Standard Drinks/Week Comments Yes 4 (1 standard drink = 0.6 oz pur e alcohol) AUDIT-C Answer Date Recorded Q1: How often do you have a drink containing alc ohol? 2-3 times a week 06/21/2022 Q2: How many drinks containi ng alcohol do you have on a typical day when you are drinking? 3 or 4 06/21/2022 Q3: How often do you have si x or more drinks on one occasion? Monthly 06/21/2022 Overall Financial Resource Strain (CARDIA) Answe r Date Recorded How hard is it for you to pa y for the very basics like food, housing, medical care, and heating? Not hard at all 02/12/2022 PHQ-2 Answer Date Recorded Retired PHQ-9: Brief Depression Severity Measure Score 0 03/08/2022 Hunger Vital Sign Answer Date Recorded Within the past 12 months, y ou worried that your food would run out before you got the money to buy more. Never true 02/13/20 22 Within the past 12 months, t he food you bought just didn't last and you didn't have money to get more. Never true 02/12/2022 PRAPARE - Transportation Answer Date Re corded In the past 12 months, has l ack of transportation kept you from medical appointments or from getting medications? No 01/17 In the past 12 months, has l ack of transportation kept you from meetings, work, or from getting things needed for daily living? No 02/12/2022 Housing Stability Vital Sign Answer Garrick e Recorded In the last 12 months, was t here a time when you were not able to pay the mortgage or rent on time? No 02/12/2022 [address] of Places Lived in the Last Year Not on f ile 02/12/2022 In the last 12 months, was t here a time when you did not have a steady place to sleep or slept in a long term (including now)? No 02/12/2022 Abuse Screen Answer Date Recorded Unsafe at Home or Work/School Not on file Feels Threatened by Someone? Not on file 06/2024 Does Anyone Keep You from Co ntacting Others or Doint Things Outside the Home? Not on file 08/28/2023 Physical Sign of Abuse Present Not on file 0 08/28/2023 Housing Stability Answer Date Recorded Current Living Arrangements Not on file 03/2023 Potentially Unsafe Housing Conditions Not on len e 06/25/2023 Family and Community Support Answer Garrick e Recorded Help with Day-to-Day Activities Not on file 05/25/2023 Lonely or Isolated Not on file 05/25/2023 Employment Answer Date Recorded Do you want help finding or keeping work or a yu b? Not on file 05/25/2023 Disabilities Answer Date Recorded Concentrating, Remembering, or Making Decisions Difficulty Not on file 06/25/2023 Doing Errands Independently Difficulty Not on fi le 06/25/2023 Education Answer Date Recorded Help with school or training? Not on file Preferred Language Not on file 06/25/2023 Sex and Gender Information Value Date Recorded Sex Assigned at Not on file Legal Sex Male 6:15 PM EDT Gender Identity Not on file Sexual Orientation Not on file documented as of this encounter Functional Status documented as of this encounter Plan of Treatment Not on file documented as of this encounter Procedures Procedure Name Priority Date/Time Associated Diagnosis Comments HEPATIC FUNCTION PANEL Today 06/23/2015 3:10 PM YARDAGE TUFTING MACHINE OPERATOR documented in this encounter Results * (ABNORMAL) Hepatic function panel (06/23/2015 3:10 PM YARDAGE TUFTING MACHINE OPERATOR) Total Protein 7.3 6.3 - 8.6 gm/dl 06/23/2015 3:55 PM YARDAGE TUFTING MACHINE OPERATOR [facility] Albumin 3.4 3.4 - 4.8 gm/dl 06/23/2015 3:55 PM [facility] Bilirubin, Direct 0.0 0.0 - 0.3 mg/dl 06/23/2015 3:55 PM [facility] Total Bilirubin 1.0 0.2 - 1.3 mg/dl 06/23/2015 3:55 PM [facility] Alkaline Phosphatase 88 38 - 126 U/L 06/23/2015 3:55 PM [facility] AST (SGOT) 208(H) 17 - 59 U/L 06/23/2015 3:55 PM [facility] ALT (SGPT) 224(H) 21 - 72 U/L 06/23/2015 3:55 PM [facility] Blood specimen (specimen) 06/23/2015 3:10 PM YARDAGE TUFTING MACHINE OPERATOR 06/23/2015 3:42 PM YARDAGE TUFTING MACHINE OPERATOR Narrative [facility] - 06/23/2015 3:55 PM YARDAGE TUFTING MACHINE OPERATOR Specimen Type : BloodPLEASE FAX RESULTS TO [phone] us Miguel Angel Onofre MD LAB BLOOD ORDERABLES Final Res ult [facility]
[address] [place] [address], documented in this encounter Visit Diagnoses Not on filedocumented in this encounter Additional Health Concerns Infection Onset Date Last Indicated Resolved Time COVID (rule out) 02/10/2022 02/10/2022 02/11/2022 9:17 AM EDT COVID (rule out) 06/21/2022 06/21/2022 06/24/2022 3:15 PM EST Influenza 06/21/2022 06/21/2022 07/21/2022 9:08 PM EST C.difficile (rule out) 10/14/2022 10/15/202210/19 9:08 PM EST documented as of this encounter Care Teams Pattern Maker Programer Relationship Specialty Start Date End Date Ewa Hou APRN [address] [place] [address] PCP - General 03/30/15 06/20/22 documented as of this encounter
--- OUTSIDE RECORDS SUMMARY | 2015-11-15 07:04 | XMS_ITS | Encounter Summary ---
Author Organization [facility] Address [address] [place] [address] Care Team Providers Care Automatic Pad Making Machine Operator Name Role Phone Elder, Ewa Llanes APRN Primary Care Provider [phone] Encounter Details Date Type Department Care Team (Late st Contact Info) Description 11/15/2015 7:04 AM CDT Hospital Encounter [facility] Levar Stoner MD [address] [place] [address] [address] [place] [address] Social History Tobacco Use Types Packs/Day Years [...] place to sleep or slept in a detention (including now)? No 02/12/2022 Abuse Screen Answer [...] on file documented as of this encounter Visit Diagnoses Not on filedocumented in this encounter Additional Health Concerns Infection Onset Date Last Indicated Resolved Time COVID (rule out) 02/10/2022 02/10/2022 02/11/2022 9:17 AM EDT COVID (rule out) 06/21/2022 06/21/2022 06/24/2022 3:15 PM EST Influenza 06/21/2022 06/21/2022 07/21/2022 9:08 PM EST C.difficile (rule out) 10/14/2022 10/15/202210/19 9:08 PM EST documented as of this encounter Care Teams Automatic Pad Making Machine Operator Relationship Specialty Start Date End Date Ewa Hou APRN [address] [place] [address] PCP - General 03/30/15 06/20/22 documented as of this encounter
--- OUTSIDE RECORDS SUMMARY | 2015-11-20 13:05 | XMS_ITS | Encounter Summary ---
Author Organization [facility] Address [address] [place] [address] Care Team Providers Care Jewel Inserter Name Role Phone Elder, Ewa Llanes APRN Primary Care Provider [phone] Encounter Details Date Type Department Care Team (Late st Contact Info) Description 11/20/2015 1:05 PM CDT Hospital Encounter [facility] Levar Stoner MD [address] [place] [address] [address] [place] [address] Social History Tobacco Use Types [...] place to sleep or slept in a intermediate (including now)? No 02/12/2022 Abuse Screen Answer [...] documented as of this encounter Care Teams Jewel Inserter Relationship Specialty Start Date End Date Ewa Hou APRN [address] [place] [address] PCP - General 03/30/15 06/20/22 documented as of this encounter
--- OUTSIDE RECORDS SUMMARY | 2015-11-22 07:18 | XMS_ITS | Encounter Summary ---
Author Organization [facility] Address [address] [place] [address] Care Team Providers Care Lumber Marker Name Role Phone Elder, Ewa Llanes APRN Primary Care Provider [phone] Encounter Details Date Type Department Care Team (Late st Contact Info) Description 11/22/2015 7:18 AM CDT Hospital Encounter [facility] Levar Stoner MD [address] [place] [address] [address] [place] [address] Social History Tobacco Use Types [...] place to sleep or slept in a care home (including now)? No 02/12/2022 Abuse Screen Answer [...] documented as of this encounter Care Teams Lumber Marker Relationship Specialty Start Date End Date Ewa Hou APRN [address] [place] [address] PCP - General 03/30/15 06/20/22 documented as of this encounter
--- OUTSIDE RECORDS SUMMARY | 2016-01-04 08:27 | XMS_ITS | Encounter Summary ---
Author Organization [facility] Address [address] [place] [address] Care Team Providers Care Early Intervention School Psychologist Name Role Phone Elder, Ewa Llanes APRN Primary Care Provider [phone] Encounter Details Date Type Department Care Team (Late st Contact Info) Description 01/04/2016 8:27 AM CDT Hospital Encounter [facility] Rl Farmer, KACIE [address] [place] [address] [address] [place] [address] Social History Tobacco Use Types [...] documented as of this encounter Care Teams Early Intervention School Psychologist Relationship Specialty Start Date End Date Ewa Hou APRN [address] [place] [address] PCP - General 03/30/15 06/20/22 documented as of this encounter
--- OUTSIDE RECORDS SUMMARY | 2016-01-04 10:00 | XMS_ITS | Encounter Summary ---
Author Organization [facility] Address [address] [place] [address] Care Team Providers Care Institutional Asset Manager Name Role Phone Elder, Ewa Llanes APRN Primary Care Provider [phone] Encounter Details Date Type Department Care Team (Late st Contact Info) Description 01/04/2016 10:00 AM CDT Hospital Encounter [facility]STRO[facility] [place] [phone] Levar Stoner MD [address] [place] [address] [address] [place] [address] Social History Tobacco Use Types [...] documented as of this encounter Care Teams Institutional Asset Manager Relationship Specialty Start Date End Date Ewa Hou APRN [address] [place] [address] PCP - General 03/30/15 06/20/22 documented as of this encounter
--- OUTSIDE RECORDS SUMMARY | 2025-07-18 14:17 | XMS_ITS | Clinical Summary ---
[facility] Address [address] [place] [address] Care Team Providers Care Ampoule Examiner Name Role Phone Luisa Lewis APRN Primary Care Provider + [phone] Allergies No known active allergies Medications spironolactone [...] 30 tablet 3 08/05/20 23 Active Creon 09646-060735 units capsule delayed-release particles capsuleIndications: Exocrine pancreatic [...] to sleep or slept in a senior living (including now)? No 02/12/2022 Abuse Screen Answer [...] 05/18/2013 ANNUAL WELLNESS VISIT 11/27/2016 COVID-19 Vaccine (2 - Jansse n risk series) 08/06/2021 07/09/2021, 11/22/2020 INFLUENZA VACCINE 03/18/2025 COLONOSCOPY 09/13/2031 09/13/2021, 08/19, 09/11/2021 COLORECTAL CANCER [...] PCR (graph) (10/22/2022 2:29 PM EST) Pathologist [facility] [place] Hepatitis C Quantitation HCV Not Detected IU/mL 10/24/2022 11:11 AM EST [facility] Test Information Comment 10/25/19 11:11 AM EST [facility] Comment:The quantitative ran ge of this assay is 15 IU/mL to 100 million IU/mL. Blood Venipuncture / Unknown 10/22/2022 2:29 PM EST 10/22/2022 3:22 PM EST Narrative [facility] - 10/24/2022 11:11 AM EST Performed at: [address] [place] [address] [id number] Drum Printer: Monserrat Pierre MD, Phone: [phone] Simona Kaplan APRN LAB BLOOD ORDERABLES Final Result Performing Organization Address City/State/[facility] Co de Phone Number [facility] [address] [place] [address], * CT Abdomen Pelvis Without Contrast (08/25/2022 [...] or is breathing): Full Support Care Teams Ampoule Examiner Relationship Specialty Start Date End Date Luisa Lewis, DIRECTOR PRODUCT SAFETY PCP - General Nurse Practitioner 06/21/22
--- OUTSIDE RECORDS SUMMARY | 2025-07-18 14:17 | XMS_ITS | Encounter Summary ---
[facility] [address] [place] [address] Care Team Providers Care Guide Excursion Name Role Phone Luisa Lewis APRN Primary Care Provider + [phone] Encounter Details Date Type Department Care Team (Late st Contact Info) Description 02/12/2022 Retail Pharmacy Consultation [facility] [address] [place] [address] Seda Vasquez [facility] [address] [place] [address] Social History Tobacco Use Types Packs/Day Years [...] in a retirement (including now)? No 02/12/2022 Sex and Gender [...] documented as of this encounter Care Teams Guide Excursion Relationship Specialty Start Date End Date Luisa Lewis APRN PCP - General Nurse Practitioner 06/21/22 documented as of this encounter
--- OUTSIDE RECORDS SUMMARY | 2025-07-18 14:17 | XMS_ITS ---
Author Organization [facility] Address [address] [place] [address] Phone Care Team Providers Care Dowel Pointer Name Role Phone Mundo GANNON, Michael Sweeney Unavailable [phone] Plan of Treatment No Plan of Treatment Recorded Assessments Includes: Assessments for all patient encounters No Assessments Recorded Medical Equipment - Implanted Devices Includes: Current and historical Devices No Medical Equipment Recorded Medications Administered Includes: Administered Medications in patient's chart No Administered Medications Recorded Results Includes: Results from 07/18/2024 through 07/18/2025 No Results Recorded For Specified Dates History of Present Illness History of Present Illness not supported for this document type No History of Present Illness Recorded Social History No Social History Recorded - Smoking Status Unknown Medical History Includes: Medical History in patient's chart No Medical History Recorded Family History Includes: Family History in patient's chart No Family History Recorded Review of Systems Review of Systems not supported for this document type No Review of Systems Recorded Mental Status No Mental Status Recorded Functional Status No Functional Status Recorded Physical Exam Physical Exam not supported for this document type No Physical Exam Recorded Insurance Includes: Active Insurance Policies Plan Name Member ID Group # Subscriber Relationship Effect antonio Dates 1 - [employer] MEDICA[employer] [id number] Fransisco Aubrey Self Clinical Notes Includes: Signed Clinical Notes starting from 08/01/2022 No Clinical Notes Recorded
--- OUTSIDE RECORDS SUMMARY | 2025-07-18 14:17 | XMS_ITS ---
Care Plan - [facility] Created on: July 18, 2025 Fransisco Burgos : 1960 Sex: Male Author Organization [facility] Address [address] [place] [address] Phone Care Team Providers Care Gas Load Dispatcher Name Role Phone Mundo GANNON, Michael Sweeney Unavailable [phone]
[2025-07-18 15:57] LABS: Blood Urea Nitrogen 13 mg/dl (9-20); Creatinine,Serum 1.10 mg/dl (0.66-1.25); Estimated Glomerular Filt Rate 67 ml/min (>60); GFR (African American) 81 ML/MIN (>60)
[2025-07-19 10:10] LABS: PSA, Free 2.26 ng/mL
== END 2025-07-18 23:59 | disposition home or self-care (01) ==
LOC: LAB 14:08
PROVIDERS: PCP Nurse Practitioner Family; Visit Provider Urology
DX: N40.1 Benign prostatic hyperplasia with lower urinary tract symptoms (principal)
CPT/HCPCS: 36415; 82565; 84153; 84154; 84520

== ENCOUNTER 2025-08-01 16:01 | Emergency (ER) | payer MEDICARE, MEDICAID, SELFPAY ==
[2025-08-01 16:35] VITALS: BP 147/89; PULSE 86; RESP 20; TEMP 36.9; O2SAT 95; BMI 34.4
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
[2025-08-01] MEDS: METHOCARBAMOL 500MG TABLET 750 MG PO (17:26)
[2025-08-01] MEDS: OXYCODONE 5MG W/APAP 325MG TABLET 1 EACH PO (17:26)
[2025-08-01] MEDS: LIDOCAINE 5% TRANSDERMAL PATCH 1 EACH TD (17:26)
[2025-08-01 18:30] VITALS: BP 154/111; PULSE 94; RESP 18; TEMP 36.7; O2SAT 97
== END 2025-08-01 18:38 | disposition home or self-care (01) ==
PROVIDERS: Emergency Provider Student in an Organized Health Care Education/Training Program; PCP Nurse Practitioner Family
DX: M54.50 Low back pain, unspecified (principal); V89.2XXA Person injured in unspecified motor-vehicle accident, traffic, initial encounter
CPT/HCPCS: 72125; 72128; 72131; 72192; 99283; 99285